=== PATIENT | female | born 1955 | race Caucasian/White ===

== ENCOUNTER 2018-03-17 08:17 | Day surgery (SDC) | payer MEDICARE, MEDICAID ==
[2018-03-16 17:03] VITALS: BMI 34.4
[2018-03-17 09:37] LABS: #Eosinphils 0.3 thou/uL (0.0-0.7); #Lymphocytes 1.6 thou/uL (1.20-3.40); #Neutrophils 9.4 thou/uL (1.40-6.50); %Basophils 0.4 % (0.0-1.0); %Eosinophils 2.5 % (0.0-10.0); %Lymphocytes 13.1 % (21.0-51.0); %Monocytes 8.1 % (0.0-10.0); %Neutrophils 75.9 % (42.0-75.0); Hemoglobin 9.6 g/dL (12.0-16.0); Mean Corpuscular HGB CONC 30.3 g/dL (32.0-36.0); Mean Corpuscular Volume 92.5 fl (81.0-99.0); Mean Platelet Volume 8.4 fL (7.4-10.4); Platelet Count 172 thou/uL (130-400); RBC Distribution Width 14.8 % (11.5-14.5); Red Blood Cell (RBC) Count 3.42 mill/uL (4.20-5.40); White Blood Cell (WBC) Count 12.4 thou/uL (4.8-10.8)
[2018-03-17] MEDS ORDERED: CEFAZOLIN/Water 2 GM/20 ML SYRINGE ONE (09:55)
[2018-03-17 09:58] LABS: Anion Gap 18 mmol/L (10-20); BUN (Urea Nitrogen) 68 mg/dL (9.8-20.1); Calc. Creatinine Clearance 11 mL/min (70-130); Calcium 8.6 mg/dL (7.8-10.44); Carbon Dioxide 29 mmol/L (23-31); Chloride 97 mmol/L (98-107); Estimated GFR-MDRD 5; Glucose 156 mg/dL (80-115); Potassium 5.6 mmol/L (3.5-5.1); Sodium 138 mmol/L (136-145)
--- NOTE | 2018-03-17 11:02 | HP ---
REASON FOR ADMISSION/CHIEF COMPLAINT: Clot in right upper arm AV fistula. HISTORY OF PRESENT ILLNESS: Ms. Mariscal is a 62-year-old woman with end-stage renal failure on cathi lysis, who has been having problems recently with her right upper arm fistula. She underwent a fistu logram and venoplasty yesterday by Dr. Pardeep Nguyen, but he noted a large amount of clot in th e upper vein and was unable to remove this so he requested a surgical thrombectomy. The patient does appear to have a stenosis above this level which he will then venoplasty after the thrombectomy next week. She states that her access has been working well up until just recently and that she was only able to undergo a partial dialysis on Tuesday. She was on dialysis for the full amount of time, b ut the flow was apparently poor so she did not receive a full dialysis. PAST MEDICAL HISTORY: Diabetes type 2 requiring insulin, hypertension, hyperlipidemia, morbid obesit y, chronic renal failure, needing dialysis, chronic lymphedema, hypothyroidism, and depression. PAST SURGICAL HISTORY: Left colon resection, breast biopsy, carpal tunnel, hysterectomy, right upper arm AV fistula and revision and femoral and internal jugular dialysis catheters. MEDICATIONS: Sertraline 100 mg in the morning and 50 mg in the evening, hydralazine 100 mg p.o. b.i. d., carvedilol 25 mg p.o. b.i.d., meclizine 50 mg p.o. q.p.m., vitamin D 1000 units b.i.d., pantopraz ole 40 mg p.o. q.a.m., atorvastatin 40 mg p.o. q.p.m., levothyroxine 5 mcg p.o. q.a.m., loratadine 1 0 mg p.o. q.a.m., topiramate 50 mg p.o. b.i.d., diphenhydramine 25 mg p.o. q.p.m., felodipine ER 10 m g p.o. q.p.m., valsartan 320 mg p.o. q.p.m., Sensipar 60 mg p.o. q.p.m., bupropion 150 mg p.o. b.i.d. , Pro-Renal plus D 1 p.o. q.a.m., Levemir FlexTouch 45 units subcu q.p.m., amoxicillin 875 mg p.o. b.i.d. for bronchitis and benzonatate 200 mg p.o. t.i.d., Renvela 800 mg 3 tablets b.i.d. and a cough suppressant every 4 hours p.r.n., Tylenol p.r.n. FAMILY HISTORY: Diabetes and heart disease. ALLERGIES: She reports an allergy to LISINOPRIL and an intolerance of CODEINE. SOCIAL HISTORY: She does not smoke, drink or use illicit drugs. She is accompanied by her daughter. REVIEW OF SYSTEMS: Ten system review of systems is negative except per HPI and for chronic cough fro m bronchitis which has been ongoing for over a week. She has not had any fevers, chills or dyspnea. She also has right arm swelling which is recent in onset. PHYSICAL EXAMINATION: VITAL SIGNS: Temperature 97, heart rate 82, respirations 20, blood pressure 128/69, O2 sat 94% on ro om air. GENERAL: Reveals a pleasant elderly woman in no acute distress. She is not flushed or toxic in appe arance. She is not jaundiced or icteric. HEENT: Unremarkable. NECK: Supple, without lymphadenopathy or thyroid nodules. HEART: Regular in its rate and rhythm. She does have a systolic murmur which is heard best at the l eft sternal border. RESPIRATORY: She does not have any crackles. Breath sounds are somewhat distant due to body habitus . ABDOMEN: Soft, nontender, nondistended. She has fairly marked rectus diastasis and no palpable william ias or masses. EXTREMITIES: Warm and well perfused. She has some mild edema of bilateral lower extremities. Her r ight arm is swollen and somewhat tender consistent with acute edema. She has a pulsatile quality to her right upper arm fistula, but there is flow through it. She has a fairly large aneurysm, but the skin overlying it is healthy. NEUROLOGIC: No focal deficits. PSYCHIATRIC: Alert, oriented, and appropriate. ASSESSMENT: Nonocclusive thrombus of the right upper arm AV fistula for which surgical thrombectomy has been requested. We will plan on proceeding with this in the operating room under fluoroscopic gu idance. Once we have retrieved as much clot as possible she will return to Dr. Roberto for planne d angioplasty and possible stenting of her central venous stenosis. She does understand that there i s risk of clot breaking off traveling to the lung causing pulmonary embolus, damage to the vein and f ailure to clear the clot is also possible. If the fistula does not look salvageable then a tunneled dialysis catheter will be placed, but I do not anticipate this will be the case. All of her and her daughter's questions were answered and they wish to proceed.
[2018-03-17] MEDS ORDERED: Heparin 1,000 UNITS/ML VIAL ONE ×2 (11:11)
[2018-03-17] MEDS ORDERED: Protamine Sulfate 50 MG/5 ML VIAL ONE (11:44)
[2018-03-17] MEDS ORDERED: Bupivacaine/Epinephrine 0.25% 30 ML VIAL ONE ×2 (11:44→14:11)
[2018-03-17] MEDS ORDERED: Heparin 5,000 UNITS/ML VIAL ONE (11:44)
[2018-03-17] MEDS ORDERED: Ioversol 68 % 50 ML VIAL ONE (11:45)
[2018-03-17] MEDS ORDERED: Lidocaine 2% 10 ML INJ ONE ×2 (11:45→14:11)
[2018-03-17] MEDS ORDERED: Fentanyl 100 MCG/2 ML VIAL ONE (11:53)
[2018-03-17] MEDS ORDERED: Ondansetron HCl/PF 4 MG/2 ML Vial ONE ×2 (13:02→19:44)
[2018-03-17] MEDS ORDERED: Sodium Chloride 0.9% 30 ML ONE (14:11)
[2018-03-17] MEDS ORDERED: Heparin 10,000 UNITS/1 ML VIAL ONE (14:11)
[2018-03-17] MEDS ORDERED: Ondansetron HCl/PF 4 MG/2 ML Vial IVP PRN (14:44)
[2018-03-17] MEDS ORDERED: Promethazine HCl 25 MG/ML VIAL SLOW IVP PRN (14:44)
[2018-03-17] MEDS ORDERED: Promethazine HCl 25 MG/ML VIAL IM PRN (14:44)
[2018-03-17] MEDS ORDERED: traMADol HCl 50 MG TAB PO PRN ×2 (15:27→15:28)
--- NOTE | 2018-03-17 15:52 | RAD ---
PORTABLE CHEST: 03/17/18 HISTORY: Dyspnea. CCU followup. COMPARISON: 06/05/13. FINDINGS/IMPRESSION: Heart is mildly enlarged. There is a dual lumen central line via the left jugular with tip overlying the upper SVC. Mild vascular engorgement. The lungs show no evidence of focal infiltrate and no signi ficant effusion. POS: [facility]
--- NOTE | 2018-03-17 16:46 | EKG ---
Test Reason : PREOP Blood Pressure : / mmHG Vent. Rate : 079 BPM Atrial Rate : 079 BPM P-R Int : 182 ms QRS Dur : 108 ms QT Int : 420 ms P-R-T Axes : 002 009 067 degrees QTc Int : 481 ms Normal sinus rhythm Normal ECG When compared with ECG of 01-JUN-2013 18:10, Nonspecific T wave abnormality no longer evident in Lateral leads Confirmed by DR. Kei MATTHEWS ([id number]) on 03/17/2018 4:46:21 PM Referred By: SHAKIRA Confirmed By:DR. Kei MATTHEWS
[2018-03-17] MEDS ORDERED: PHENYLEPHRINE-NS 100 MCG/ML 10 ML SYRINGE ONE (19:44)
[2018-03-17] MEDS ORDERED: Glycopyrrolate 0.2 MG/ML 5 ML SYRINGE ONE (19:44)
[2018-03-17] MEDS ORDERED: PROPOFOL 200 MG/20 ML VIAL ONE (19:44)
[2018-03-17] MEDS ORDERED: Lidocaine 1% PF 5 ML VIAL ONE (19:44)
[2018-03-17] MEDS ORDERED: ePHEDrine/0.9% NaCl/PF SYRINGE 50 mg/10 ml ONE (19:44)
[2018-03-17 21:01] VITALS: TEMP 98.6
[2018-03-17] MEDS ORDERED: Loratadine 10 MG TAB PO PRN (21:06)
[2018-03-17 21:13] LABS: Anion Gap 16 mmol/L (10-20); BUN (Urea Nitrogen) 15 mg/dL (9.8-20.1); Calc. Creatinine Clearance 33 mL/min (70-130); Carbon Dioxide 29 mmol/L (23-31); Chloride 97 mmol/L (98-107); Estimated GFR-MDRD 17; Glucose 116 mg/dL (80-115); Potassium 3.3 mmol/L (3.5-5.1); Sodium 139 mmol/L (136-145)
[2018-03-17] MEDS ORDERED: Valsartan 80 MG TAB PO SCH (21:15)
[2018-03-17] MEDS ORDERED: hydrALAZINE 25 MG TAB PO SCH (21:15)
[2018-03-17] MEDS ORDERED: Hydrochlorothiazide 25 MG TAB PO SCH (21:15)
[2018-03-17] MEDS ORDERED: Topiramate 25 MG TAB PO SCH (21:15)
[2018-03-17 21:31] VITALS: BP 182/84
[2018-03-18] MEDS ORDERED: Insulin Detemir 100 UNITS/ML 45 UNITS in Pre-Filled Syringe 1 EACH SC SCH (07:30)
--- NOTE | 2018-03-18 07:39 | ULT ---
ULTRASOUND VESSEL MAPPING FOR DIALYSIS ACCESS: Date: 03/17/18 HISTORY: 62-year-old female with ERSD. FINDINGS: Exam was limited with only attention to the LEFT arm. BASILIC VEIN Proximal Arm: 3.4 mm Mid Arm: 2.7 mm Distal Arm: 2.6 mm Antecubital Fossa: 4.1 mm Proximal Forearm: 2.7 mm Mid Forearm: 2.6 mm Distal Forearm: 2.4 mm CEPHALIC VEIN Proximal Arm: 4.1 mm Mid Arm: 2.8 mm Distal Arm: 4.9 mm Antecubital Fossa: 4.7 mm Proximal Forearm: 2.6 mm Mid Forearm: 3.1 mm Distal Forearm: 3.2 mm BRACHIAL ARTERY: 5.1 mm RADIAL ARTERY: 1.7 mm ULNAR ARTERY: 1.8 mm IMPRESSION: Left basilic and cephalic sizes as above. Right upper extremity was not evaluated. POS: [facility]
[2018-03-18] MEDS ORDERED: Sevelamer Carbonate 800 MG TAB PO SCH (08:00)
[2018-03-18] MEDS ORDERED: Liothyronine Sodium 5 MCG TAB PO SCH (09:00)
[2018-03-18] MEDS ORDERED: hydrALAZINE 25 MG TAB PO SCH (09:00)
[2018-03-18] MEDS ORDERED: Meclizine HCl 25 MG TAB PO SCH (09:00)
[2018-03-18] MEDS ORDERED: Prevnar 13-Val Conj/PF 0.5 ML SYRINGE IM ONE (09:00)
[2018-03-18] MEDS ORDERED: Topiramate 25 MG TAB PO SCH (09:00)
[2018-03-18] MEDS ORDERED: Valsartan 80 MG TAB PO SCH (21:00)
[2018-03-18] MEDS ORDERED: Hydrochlorothiazide 25 MG TAB PO SCH (21:00)
--- NOTE | 2018-03-23 17:53 | PDOC.OP ---
Operative Note - Operative Note Operative Note: PROCEDURE: Fistulogram and attempted thrombectomy of clotted right upper arm AV fistula. Placement of left internal jugular tunneled hemodialysis catheter with ultrasound and fluoroscopic guidance. SURGEON: Tony Hilliard M.D. DATE OF PROCEDURE: 03/17/2018 PREOPERATIVE DIAGNOSIS: End-stage renal failure. POSTOPERATIVE DIAGNOSIS: End-stage renal failure. HISTORY: Patient with thrombosed right upper arm AV fistula which was unable to be declotted by her interventional growth media mixer mushroom. A surgical thrombectomy was requested. FINDINGS: Extensive clots within the right upper arm AV fistula unable to be removed with Marcio catheters despite multiple attempts. Right internal jugular vein appears to be sclerosed. Left internal jugular vein is patent and compressible. PROCEDURE: After informed consent was obtained and appropriate preoperative antibiotics were administered, the patient was taken to the Operating Room, placed in the supine position and monitored anesthesia care was administered. The patient had 2 large aneurysmal dilations of her fistula and the upper arm. There is some retrograde flow within the lower arm cephalic vein but no palpable flow within the upper arm. A longitudinal incision was made over the nondilated portion of the fistula just above the antecubital fossa and dissection carried down to the fistula which was dissected free circumferentially. 2 vessel loops were placed superiorly and inferiorly and the inferior vessel loop tightened. A transverse fistulotomy was created and Marcio catheters passed into the upper fistula. Some clot was able to be removed with a Marcio catheter but the Marcio kept coiling within the aneurysmal sac and could not be advanced into the upper part of the fistula despite multiple attempts. Therefore the decision was made to try to declot the fistula from the portion of the fistula above the aneurysmal dilation. A second incision was made overlying the nondilated fistula above the aneurysmal portion of the fistula. This was dissected free circumferentially and vessel loops placed proximally and distally. A transverse venotomy was created and a Marcio catheter passed into the proximal vein. A large amount of clot was able to be removed but the catheter would not pass beyond about 20 cm and there was no backflow. A venogram was obtained and complete obstruction of the vein noted at about the level of insertion of the cephalic vein into the axillary vein. Additional attempts were made to pass the Marcio catheter beyond this level but these were unsuccessful. Both enterotomies were closed with running Prolene sutures and the skin incisions were closed with 30 and 4-0 Monocryl suture and dressed with Dermabond. Attention was then turned to obtaining temporary access with a tunneled hemodialysis catheter. The neck and chest were prepped and draped in a standard sterile fashion and the patient placed in Trendelenburg position. A sterile ultrasound probe was used to examine the right neck but the right IJ vein was sclerotic. Attention was then turned to the left neck where the patent compressible left IJ vein was accessed under direct ultrasound guidance. A wire was threaded through the needle and confirmed by ultrasound to be within the patent compressible vessel with the tip in the vena cava by fluoroscopy. Local anesthesia was infused to the skin and subcutaneous tissues of the left neck and chest. An infraclavicular incision was made and a catheter tunneled from the infraclavicular to the left IJ access site. The left IJ was sequentially dilated over the wire following which a dilator and sheath were placed over the wire and the dilator and wire removed leaving the sheath in place. The catheter was tunneled through the sheath which was then split and removed leaving the catheter in place. This was confirmed by fluoroscopy to be in good position in the superior vena cava with no kinking of the course of the catheter. Both ports easily aspirated dark venous nonpulsatile blood and easily flushed without resistance. Heparin was instilled to the quantity specified on the hub , and the hub was secured to the skin with 3-0 nylon sutures. The skin incision at the neck was closed in two layers with 4-0 Monocryl suture and Dermabond dressings were placed. The skin at the exit site was snugged up around the catheter with 4-0 Monocryl suture and Dermabond was placed there as well. Once the Dermabond was dry, a Biopatch and Tegaderm dressing was placed at the exit site. The patient was taken to Recovery in good condition. Estimated blood loss was minimal. There were no complications. There were no specimens.
== END 2018-03-17 23:48 | disposition home or self-care (01) ==
LOC: SDC 08:17 → 2SW 14:50 → SDC 23:48
PROVIDERS: ATTEND Surgery
PROC: 03CY0ZZ Extirpation of Matter from Upper Artery, Open Approach (ICD-10-PCS; principal; 2018-03-17)
PROC: 05HN33Z Insertion of Infusion Device into Left Internal Jugular Vein, Percutaneous Approach (ICD-10-PCS; 2018-03-17)
PROC: B514ZZA Fluoroscopy of Left Jugular Veins, Guidance (ICD-10-PCS; 2018-03-17)
PROC: B544ZZA Ultrasonography of Left Jugular Veins, Guidance (ICD-10-PCS; 2018-03-17)
DX: T82.818A Embolism due to vascular prosthetic devices, implants and grafts, initial encounter (principal); E11.22 Type 2 diabetes mellitus with diabetic chronic kidney disease; I12.0 Hypertensive chronic kidney disease with stage 5 chronic kidney disease or end stage renal disease; N18.6 End stage renal disease; E78.5 Hyperlipidemia, unspecified; E66.01 Morbid (severe) obesity due to excess calories; I89.0 Lymphedema, not elsewhere classified; E03.9 Hypothyroidism, unspecified; F32.9 Major depressive disorder, single episode, unspecified; Z68.34 Body mass index [BMI] 34.0-34.9, adult; Z99.2 Dependence on renal dialysis; Z79.2 Long term (current) use of antibiotics; Z79.4 Long term (current) use of insulin; Z79.899 Other long term (current) drug therapy; Z88.8 Allergy status to other drugs, medicaments and biological substances; Z88.5 Allergy status to narcotic agent
CPT/HCPCS: 36561; 36831; 71045; 76001; 80048 ×2; 82962; 85025; 93005; C1752; C1769; G0365; 36415; 36416; 90935; 93010; 93970; A4216; G0257; J1644; J2001; J2405; J2704; J2720; J3010; Q9967

== ENCOUNTER 2018-04-04 18:14 | Inpatient (IN) | payer MEDICARE, OTHER, MEDICAID ==
[2018-04-04 18:46] LABS: #Eosinphils 0.3 thou/uL (0.0-0.7); #Lymphocytes 1.5 thou/uL (1.20-3.40); #Monocytes 0.6 thou/uL (0.11-0.59); %Basophils 0.2 % (0.0-1.0); %Eosinophils 3.3 % (0.0-10.0); %Lymphocytes 17.9 % (21.0-51.0); %Monocytes 6.9 % (0.0-10.0); %Neutrophils 71.7 % (42.0-75.0); Hemoglobin 8.2 g/dL (12.0-16.0); Mean Corpuscular HGB CONC 31.7 g/dL (32.0-36.0); Mean Corpuscular Hemoglobin 28.7 pg (27.0-31.0); Mean Corpuscular Volume 90.5 fl (81.0-99.0); Mean Platelet Volume 7.3 fL (7.4-10.4); Platelet Count 237 thou/uL (130-400); RBC Distribution Width 15.2 % (11.5-14.5); Red Blood Cell (RBC) Count 2.85 mill/uL (4.20-5.40); White Blood Cell (WBC) Count 8.4 thou/uL (4.8-10.8)
[2018-04-04 19:10] LABS: ALT (SGPT) Less than 7 U/L (8-55); AST (SGOT) 14 U/L (5-34); Albumin 3.7 g/dL (3.4-4.8); Alkaline Phosphatase 74 U/L (40-150); Anion Gap 14 mmol/L (10-20); BUN (Urea Nitrogen) 23 mg/dL (9.8-20.1); Bilirubin, Total 0.3 mg/dL (0.2-1.2); Calc. Creatinine Clearance 0 mL/min (70-130); Calcium 8.4 mg/dL (7.8-10.44); Carbon Dioxide 33 mmol/L (23-31); Chloride 95 mmol/L (98-107); Estimated GFR-MDRD 11; Glucose 338 mg/dL (80-115); Potassium 4.1 mmol/L (3.5-5.1); Protein, Total 7.7 g/dL (6.0-8.3); Sodium 138 mmol/L (136-145)
[2018-04-04 19:10] LABS: INR-International Normal Ratio 1.3; Prothrombin Time 16.5 SEC (12.0-14.7)
[2018-04-04 19:11] LABS: PTT 37.5 SEC (22.9-36.1)
[2018-04-04 19:12] LABS: D-Dimer Test 3.02 *mcg/mL (0.27-0.43)
--- NOTE | 2018-04-04 20:08 | RAD ---
RIGHT HAND THREE VIEWS: 04/04/2018 HISTORY: Pain to right arm that started one month after having a stent placed in the right upper arm. Lower a rm swelling and discoloration. FINDINGS: No fracture or dislocation seen involving the right hand. No other osseous abnormality is appreciat ed. Vascular calcifications are seen at the level of the wrist. IMPRESSION: No acute osseous abnormality, right hand. POS: [facility]
[2018-04-04] MEDS ORDERED: Acetaminophen 325 MG TAB ONE (20:14)
[2018-04-04] MEDS ORDERED: Piperacillin/Tazobactam 3.375 GM VIAL ONE (20:24)
[2018-04-04] MEDS ORDERED: Acetaminophen 500 MG TAB ONE ×2 (20:24→20:55)
[2018-04-04] MEDS ORDERED: Ondansetron ODT 4 MG TAB ONE ×2 (20:24→21:58)
[2018-04-04] MEDS ORDERED: Morphine 4 MG/ML VIAL ONE (20:25)
--- NOTE | 2018-04-04 20:56 | RAD ---
PORTABLE CHEST: 04/04/2018 PROVIDED CLINICAL HISTORY: Cough. COMPARISON: 03/17/2018 FINDINGS: The cardiac silhouette remains enlarged. Vascular stent material overlies the right lung apex. A le ft subclavian dialysis catheter is again seen. Patchy air space disease at the right lower lung zone may reflect subsegmental atelectasis or pneumonia. The lungs appear otherwise clear. No pleural fl uid or pneumothorax apparent. IMPRESSION: Right lower lung zone air space disease, which may reflect pneumonia. Followup recommended. POS: [facility]
[2018-04-04 21:29] LABS: Bilirubin Negative (Negative); Blood, Urine Negative (Negative); Clarity CLEAR (Clear); Glucose, Urine (Dipstick) Negative (Negative); Leukocyte Negative (Negative); Nitrite Negative (Negative); Protein, Urine (Dipstick) 100 mg/dL (Neg-Trace); Specific Gravity, Urine 1.012 (1.002-1.036); Urobilinogen 0.2 mg/dL (0.2-1.0)
[2018-04-04 21:31] LABS: Bacteria/HPF None Seen HPF (None Seen); Hyaline Casts/LPF 0-3 HYALINE CAST LPF (0-3 Hyaline); Pathc Cast-AUWi Flag 0.29 (0-2.49); RBC/HPF None Seen HPF (0-3); Squamous Epithelial 0-3 HPF (0-3); WBC/HPF 0-3 HPF (0-3)
[2018-04-04] MEDS ORDERED: Insulin Regular 300 UNITS/3 ML VIAL ONE (22:54)
[2018-04-04] MEDS ORDERED: Promethazine HCl 25 MG/ML VIAL ONE (22:56)
[2018-04-04] MEDS ORDERED: Vancomycin HCl 1.5 GM in Sodium Chloride 0.9% 250 ML 300 ML IVPB SCH (23:15)
--- NOTE | 2018-04-04 23:16 | ULT ---
RIGHT UPPER EXTREMITY VENOUS DOPPLER: 04/04/2018 PROVIDED CLINICAL HISTORY: Swelling and pain. TECHNIQUE: Calero-scale and color Doppler sonography was performed of the right internal jugular, subclavian, axil nisha, basilic, brachial, cephalic, radial, and ulnar veins. FINDINGS: There is an enlarged appearance to the right cephalic vein in the upper arm due to a known radiocepha lic dialysis fistula. The cephalic vein is occluded at the level of the elbow. The remainder of the interrogated vessels of the right upper extremity demonstrate a normal sonographic appearance. Flow is documented within the radial artery at the anastomosis. IMPRESSION: 1. Occlusion of the cephalic vein at the level of the elbow. 2. Otherwise unremarkable right upper extremity venous Doppler. POS: [facility]
[2018-04-05 04:08] VITALS: BMI 34.4
[2018-04-05] MEDS ORDERED: Bisacodyl 10 MG SUPP PR PRN (05:22)
[2018-04-05] MEDS ORDERED: Calcium Carbonate 500 MG ChewTAB PO PRN (05:22)
[2018-04-05] MEDS ORDERED: Dextrose 50% Abboject 50 ML SYRINGE SLOW IVP PRN (05:22)
[2018-04-05] MEDS ORDERED: Senokot 8.6 MG TAB PO PRN (05:22)
[2018-04-05] MEDS ORDERED: Ondansetron HCl/PF 4 MG/2 ML Vial IVP PRN ×2 (05:22→15:40)
[2018-04-05] MEDS ORDERED: Dextrose 5% in Water 1,000 ML IV PRN (05:22)
[2018-04-05] MEDS ORDERED: VANCOMYCIN/ RENALLY ADJUST ANTIBIOTICS IVPB PRN (05:23)
[2018-04-05] MEDS ORDERED: Promethazine 25 MG TAB PO PRN (05:28)
[2018-04-05] MEDS ORDERED: Vancomycin HCl 1 GM in Premix Bag 1 BAG IVPB SCH ×2 (05:30→10:00)
--- NOTE | 2018-04-05 05:42 | HP ---
DATE OF ADMISSION: 04/04/2018 The patient was seen and examined on 04/04/2018 CHIEF COMPLAINT: Right arm pain. HISTORY OF PRESENT ILLNESS: The patient is a 62-year-old female with end-stage renal disease on hemo dialysis, presented to the emergency room with worsening pain and swelling over the right arm fistula . Over the last one week, her pain got significantly worse along with erythema over the right arm. She underwent fistulogram with attempted thrombectomy [address] Hilliard. She denies chest p ain, shortness of breath, palpitations. In the emergency room, her initial vital signs showed temperature 100.7, respirations 18, pulse rate of 98 with a blood pressure of 178/75. Chest x-ray showed questionable pneumonia. Right upper extre mity Doppler showed occlusion of the cephalic vein at the level of the elbow. X-ray of the hand was negative for acute findings. She received vancomycin, Zosyn, morphine, Zofran and Phenergan in the e mergency room. The pain was 10/10 in the emergency room. Radial pulses were palpable. PAST MEDICAL HISTORY: 1. End-stage renal disease, on hemodialysis Tuesday, Tuesday, Tuesday. 2. Diabetes mellitus, type 2. 3. Hypertension. 4. Hyperlipidemia. 5. Obesity with a BMI of 34.5. 6. Chronic lymphedema. 7. Hypothyroidism. 8. Depression. PAST SURGICAL HISTORY: 1. Dialysis access. 2. Left colon resection. 3. Breast biopsy. 4. Carpal tunnel surgery. 5. Hysterectomy. 6. Dialysis catheter placement. FAMILY HISTORY: Positive for diabetes and heart disease. ALLERGIES: The patient is allergic to LISINOPRIL. She is unable to tolerate CODEINE. SOCIAL HISTORY: Currently lives at home with her family. Daughter is at the bedside. She is FULL C ODE. MEDICATIONS: Family to bring accurate home medication list. REVIEW OF SYSTEMS: The following complete review of systems was negative, unless otherwise mentioned in the HPI or below: Constitutional: Weight loss or gain, ability to conduct usual activities. Sk in: Rash, itching. Eyes: Double vision, pain. ENT/Mouth: Nose bleeding, neck stiffness, pain, te nderness. Cardiovascular: Palpitations, dyspnea on exertion, orthopnea. Respiratory: Shortness of breath, wheezing, cough, hemoptysis, fever or night sweats. Gastrointestinal: Poor appetite, abdom inal pain, heartburn, nausea, vomiting, constipation, or diarrhea. Genitourinary: Urgency, frequenc y, dysuria, nocturia. Musculoskeletal: Pain, swelling. Neurologic/Psychiatric: Anxiety, depressio n. Allergy/Immunologic: Skin rash, bleeding tendency. PHYSICAL EXAMINATION: VITAL SIGNS: As discussed above. GENERAL: A 62-year-old female, in mild distress due to right arm pain. She also developed nausea af ter morphine in the emergency room. HEENT: Head atraumatic, normocephalic. Sclerae are anicteric. Moist mucous membranes. No oral les ion. NECK: Supple, no JVD, no carotid bruit. LUNGS: Clear to auscultation bilaterally. No wheezing, rales or rhonchi. HEART: S1, S2 present. Regular rate and rhythm. No murmur, rubs or gallops. ABDOMEN: Soft, nontender, bowel sounds present. EXTREMITIES: There is 2+ edema in bilateral lower extremities. NEUROLOGIC: Grossly nonfocal, moves all four extremities. PSYCHIATRIC: Alert, awake, oriented x3. SKIN: There is swelling, erythema and tenderness over the right arm. LABORATORY AND X-RAY FINDINGS: CBC showed WBC of 8.4 with hemoglobin 8.2. CRP was 2.92. Urinalysis was negative for wbc, bacteria. Chest x-ray by my review showed questionable infiltrate. IMPRESSION: 1. Sepsis secondary to right upper extremity cellulitis. 2. Abnormal chest x-ray. Pneumonia appears to be less likely. 3. 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 4. Diabetes mellitus, type 2, uncontrolled. 5. Depression. 6. Hypertension. 7. Hyperlipidemia. 8. Hypothyroidism. 9. Obesity with a BMI of 34.5. 10. End-stage renal disease on hemodialysis. 11. Secondary hyperparathyroidism. PLAN: The patient will be monitored on the medical floor. We will continue empiric antibiotics for cellulitis. We will consult Nephrology for maintenance hemodialysis. We will consult Dr. Babak aquino malfunctioning right arm fistula. We will repeat labs in a.m. Continue selected home medications. Blood cultures have been sent. Plan of care was discussed with the patient in detail. She stated understanding.
[2018-04-05] MEDS ORDERED: Eucerin (Mineral Oil/Petrolatum,White) 30 gm Jar TOP PRN (06:57)
[2018-04-05] MEDS ORDERED: Benzonatate 100 MG CAP PO PRN (06:57)
[2018-04-05] MEDS ORDERED: Loperamide HCl 2 MG CAP PO PRN (06:57)
[2018-04-05] MEDS ORDERED: Artificial Tears 18 DROP/0.9 ML EA EYE PRN (06:57)
[2018-04-05] MEDS ORDERED: Chloraseptic Spray 180 ml Bottle PO PRN (06:57)
[2018-04-05] MEDS ORDERED: Diabetic Tussin 200 MG/10 ML UDCUP PO PRN (06:57)
[2018-04-05] MEDS ORDERED: Mag-Al 1200 mg/1200 mg/30 ML UDCUP PO PRN (06:57)
[2018-04-05] MEDS ORDERED: Loratadine 10 MG TAB PO PRN (06:57)
[2018-04-05] MEDS ORDERED: Temazepam 15 MG CAP PO PRN (06:57)
[2018-04-05] MEDS ORDERED: hydrALAZINE 20 MG/ML VIAL SLOW IVP PRN (06:57)
[2018-04-05] MEDS ORDERED: diphenhydrAMINE 25 MG CAP PO PRN (06:57)
[2018-04-05] MEDS ORDERED: Labetalol HCl 100 MG/20 ML VIAL SLOW IVP PRN (06:57)
[2018-04-05] MEDS ORDERED: Sodium Chloride 0.65% Nasal 44 ML BOT EA NARE PRN (06:57)
[2018-04-05] MEDS ORDERED: Milk Of Magnesia 30 ML UDCUP PO PRN (06:57)
[2018-04-05] MEDS ORDERED: Meclizine HCl 25 MG TAB PO PRN (06:58)
[2018-04-05] MEDS: Insulin Regular 300 UNITS/3 ML VIAL SC PRN ×2 (07:12→17:28)
[2018-04-05] MEDS: Ondansetron ODT 4 MG TAB PO PRN (07:13)
[2018-04-05] MEDS: Acetaminophen 325 MG TAB PO PRN ×2 (07:13→17:12)
[2018-04-05] MEDS ORDERED: CEFAZOLIN/Water 2 GM/20 ML SYRINGE SLOW IVP SCH (08:45)
[2018-04-05] MEDS ORDERED: Famotidine/PF 20 mg/2ml Vial SLOW IVP SCH (09:00)
[2018-04-05] MEDS: hydrALAZINE 25 MG TAB PO SCH (09:24)
[2018-04-05] MEDS: Bupropion 150 MG SR TAB PO SCH (09:24)
[2018-04-05] MEDS: Topiramate 25 MG TAB PO SCH (09:24)
[2018-04-05] MEDS: Sevelamer Carbonate 800 MG TAB PO SCH (09:24)
[2018-04-05] MEDS: Carvedilol 25 MG TAB PO SCH (09:24)
[2018-04-05] MEDS: Liothyronine Sodium 5 MCG TAB PO SCH (09:25)
[2018-04-05] MEDS ORDERED: Vancomycin HCl 750 MG in Sodium Chloride 0.9% 250 ML 250 ML IVPB SCH (10:00)
[2018-04-05] MEDS ORDERED: Vancomycin HCl 500 MG in Sodium Chloride 0.9% 100 ML IVPB SCH (10:00)
[2018-04-05] MEDS ORDERED: HOLD VANCOMYCIN FOR LEVEL >20 FS SCH (10:00)
[2018-04-05] MEDS ORDERED: Vancomycin HCl 1.25 GM in Sodium Chloride 0.9% 250 ML 250 ML IVPB SCH (10:00)
--- NOTE | 2018-04-05 10:16 | ULT ---
SONOGRAM RIGHT UPPER QUADRANT: HISTORY: Right upper quadrant pain. FINDINGS: Gallbladder is distended up to 10.9 cm. No stones are directly visualized. No pericholecystic fluid or wall thickening. Liver is unremarkable without focal mass or intrahepatic biliary dilatation. No free fluid. There i s thinning of the cortex of the right kidney with a small cortical cyst. IMPRESSION: Gallbladder distention can be a sign of gallbladder outlet obstruction, although no other sonographic findings of acute cholecystitis are apparent. Clinical correlation regarding other signs and sympto ms of acute cholecystitis is required. POS: [facility]
--- NOTE | 2018-04-05 10:25 | PDOC.PN ---
- Subjective Encounter Start Date: 04/05/18 Encounter Start Time: 10:45 -: old records requested/rev Patient seen and examined for AV fistula malfunction. No new complaints. No overnight events - Objective Resuscitation Status: Resuscitation Status FULL:Full Resuscitation MAR Reviewed: Yes Vital Signs & Weight: Vital Signs (12 hours) Temp Pulse Resp BP BP Pulse Ox 04/05/18 09:24 82 04/05/18 07:54 98.3 F 82 20 04/05/18 07:47 98.3 F 82 20 139/64 91 L 04/05/18 04:40 98.4 F 80 16 165/70 H 91 L 04/05/18 00:15 98 F 80 16 207/96 H 97 Weight Admit Weight 219 lb 15.988 oz Weight 219 lb 15.988 oz Result Diagrams: 04/04/18 18:36 04/04/18 18:31 Additional Labs: Accuchecks 04/05/18 06:33 POC Glucose 271 H Radiology Reviewed by me: Yes (US abdomen, US, Chest xray, hand xray) Phys Exam - Physical Examination Constitutional: NAD HEENT: PERRLA, moist MMs, sclera anicteric Neck: no JVD, supple Respiratory: no wheezing, no rales, no rhonchi Cardiovascular: RRR, no significant murmur, no rub Gastrointestinal: soft, non-tender, no distention, positive bowel sounds Musculoskeletal: no edema, pulses present right UE AV fistula does not have thrill, right hand discolartion Neurological: non-focal, normal sensation, moves all 4 limbs Lymphatic: no nodes Psychiatric: normal affect, A&O x 3 Skin: no rash, normal turgor Dx/Plan (1) Cellulitis of right upper extremity Code(s): L03.113 - CELLULITIS OF RIGHT UPPER LIMB Status: Acute (2) Cephalic vein thrombosis Code(s): I82.619 - ACUTE EMBOLISM AND THROMBOSIS OF SUPERFIC VN UNSP UP EXTREM Status: Acute (3) Dialysis AV fistula malfunction Code(s): T82.590A - [facility] COMPL OF SURGICALLY CREATED ARTERIOVENOUS FISTULA, INIT Status: Acute (4) Sepsis Code(s): A41.9 - SEPSIS, UNSPECIFIED ORGANISM Status: Acute (5) Anemia of renal disease Code(s): D63.1 - ANEMIA IN CHRONIC KIDNEY DISEASE Status: Chronic (6) Anxiety and depression Code(s): F41.9 - ANXIETY DISORDER, UNSPECIFIED; F32.9 - MAJOR DEPRESSIVE DISORDER, SINGLE EPISODE, UNSPECIFIED Status: Chronic (7) Diabetes type 2, controlled Code(s): E11.9 - TYPE 2 DIABETES MELLITUS WITHOUT COMPLICATIONS Status: Chronic (8) Dyslipidemia Code(s): E78.5 - HYPERLIPIDEMIA, UNSPECIFIED Status: Chronic (9) ESRD on hemodialysis Code(s): N18.6 - END STAGE RENAL DISEASE; Z99.2 - DEPENDENCE ON RENAL DIALYSIS Status: Chronic (10) Hypertension Code(s): I10 - ESSENTIAL (PRIMARY) HYPERTENSION Status: Chronic (11) Hypothyroidism Code(s): E03.9 - HYPOTHYROIDISM, UNSPECIFIED Status: Chronic (12) Obesity (BMI 30-39.9) Code(s): E66.9 - OBESITY, UNSPECIFIED Status: Chronic (13) Secondary hyperparathyroidism of renal origin Code(s): N25.81 - SECONDARY HYPERPARATHYROIDISM OF RENAL ORIGIN Status: Chronic (14) Right lower lobe pneumonia Code(s): J18.1 - LOBAR PNEUMONIA, UNSPECIFIED ORGANISM Status: Suspected - Plan cont current plan of care, continue antibiotics * continue empiric antibiotics as ordered below * medication reviewed as below * symptomatic treatment * surgeon consulted for AV fistula malfunction * US abdomen noted * will repeat labs, CBC, CM, CRP and hepatitis profile. * HD as per nephrology * Surgeon planning o repair AV fistula today * discussed plan with daughter bedside Review of Systems - Review of Systems Constitutional: negative: fever, chills, sweats, weakness, malaise, other Eyes: negative: Pain, Vision Change, Conjunctivae Inflammation, Eyelid Inflammation, Redness, Other ENT: negative: Ear Pain, Ear Discharge, Nose Pain, Nose Discharge, Nose Congestion, Mouth Pain, Mouth Swelling, Throat Pain, Throat Swelling, Other Respiratory: negative: Cough, Dry, Shortness of Breath, Hemoptysis, SOB with Excertion, Pleuritic Pain, Sputum, Wheezing Cardiovascular: negative: chest pain, palpitations, orthopnea, paroxysmal nocturnal dyspnea, edema, light headedness, other Gastrointestinal: negative: Nausea, Vomiting, Abdominal Pain, Diarrhea, Constipation, Melena, Hematochezia, Other Genitourinary: negative: Dysuria, Frequency, Incontinence, Hematuria, Retention , Other Musculoskeletal: Hand Pain. negative: Neck Pain, Shoulder Pain, Arm Pain, Back Pain, Leg Pain, Foot Pain, Other - Medications/Allergies Allergies/Adverse Reactions: Allergies Allergy/AdvReac Type Severity Reaction Status Date / Time codeine Allergy Verified 04/05/18 01:16 hydrocodone Allergy Verified 04/05/18 01:16 lisinopril Allergy Verified 03/16/18 17:03 Medications: Current Medications Acetaminophen (Tylenol) 650 mg PO Q4H PRN PRN Reason: Headache/Fever or Pain Last Admin: 04/05/18 07:13 Dose: 650 mg Al Hydroxide/Mg Hydroxide (Maalox) 15 ml PO Q4H PRN PRN Reason: Heartburn or Indigestion Albuterol/Ipratropium (Duoneb) 3 ml NEB [id number] PRN PRN Reason: SOB &/or Wheezing Artificial Tears (Tears Naturale) 0 drop EA EYE PRN PRN PRN Reason: Dry Eyes Atorvastatin Calcium (Lipitor) 40 mg PO HS MAXIMILIANO Benzonatate (Tessalon) 100 mg PO Q4H PRN PRN Reason: Cough Bisacodyl (Dulcolax) 10 mg CA Q24H PRN PRN Reason: Constipation Bupropion HCl (Wellbutrin Sr) 150 mg PO BID [facility] Last Admin: 04/05/18 09:24 Dose: 150 mg Calcium Carbonate (Tums) 1,000 mg PO Q4H PRN PRN Reason: Heartburn or Indigestion Carvedilol (Coreg) 25 mg PO BID [facility] Last Admin: 04/05/18 09:24 Dose: 25 mg Cefazolin Sodium (Ancef) 2 gm SLOW IVP WILLCALL [facility] Cholecalciferol (Vitamin D3) 1,000 units PO BID [facility] Last Admin: 04/05/18 09:24 Dose: 1,000 units Cinacalcet (Sensipar) 60 mg PO QPM [facility] Dextrose/Water (Dextrose 50%) 25 gm SLOW IVP PRN PRN PRN Reason: Hypoglycemia Diphenhydramine HCl (Benadryl) 25 mg PO Q8H PRN PRN Reason: Itching Epoetin Young (Procrit) 10,000 units SC Q7D [facility] Felodipine (Plendil) 10 mg PO QPM [facility] Glucagon (Glucagon) 1 mg IM PRN PRN PRN Reason: Hypoglycemia Guaifenesin (Robitussin Sf) 200 mg PO Q4H PRN PRN Reason: Cough Hydralazine HCl (Apresoline) 100 mg PO BID [facility] Last Admin: 04/05/18 09:24 Dose: 100 mg Hydralazine HCl (Apresoline) 10 mg SLOW IVP Q4H PRN PRN Reason: Systolic BP > 180 Dextrose/Water (D5w) 1,000 mls @ 0 mls/hr IV .Q0M PRN; As Directed PRN Reason: Hypoglycemia Insulin Glargine 20 units/ (Miscellaneous Medication) 0.2 mls @ 0 mls/hr SC QPM [facility] Vancomycin HCl 1.25 gm/ Sodium (Chloride) 250 mls @ 166.667 mls/hr IVPB WILLCALL [facility] Vancomycin HCl 1 gm/ Device 200 mls @ 200 mls/hr IVPB WILLCALL [facility] Vancomycin HCl 750 mg/ Sodium (Chloride) 250 mls @ 250 mls[facility] Vancomycin HCl 500 mg/ Sodium (Chloride) 100 mls @ 100 mls/hr IVPB [facility]CALL [facility] Insulin Human Regular (Humulin R) 0 units SC .MODERATE SLIDING SC PRN PRN Reason: Moderate Correctional Scale Last Admin: 04/05/18 07:12 Dose: 6 unit Insulin Human Regular (Humulin R) 0 units SC .BEDTIME SLIDING SC PRN PRN Reason: Bedtime Correctional Scale Labetalol HCl (Normodyne) 20 mg SLOW IVP Q4H PRN PRN Reason: Systolic BP > 180 Liothyronine Sodium (Cytomel) 5 mcg PO DAILY [facility] Last Admin: 04/05/18 09:25 Dose: 5 mcg Loperamide HCl (Imodium) 2 mg PO PRN PRN PRN Reason: Diarrhea/Loose Stools Loratadine (Claritin) 10 mg PO DAILYPRN PRN PRN Reason: Sinus Symptoms Magnesium Hydroxide (Milk Of Magnesium) 30 ml PO DAILYPRN PRN PRN Reason: Constipation Meclizine HCl (Antivert) 25 mg PO Q8H PRN PRN Reason: Dizziness Mineral Oil/White Petrolatum (Eucerin Cream) 0 gm TOP BIDPRN PRN PRN Reason: Dry Skin Miscellaneous Medication (Pharmacy To Dose) 1 each IVPB PRN PRN PRN Reason: Pharmacy to dose Hold Vancomycin For (Level >20) 0 each FS .AT DIALYSIS [facility] Ondansetron HCl (Zofran Odt) 4 mg PO Q6H PRN PRN Reason: Nausea/Vomiting Last Admin: 04/05/18 07:13 Dose: 4 mg Ondansetron HCl (Zofran) 4 mg IVP Q6H PRN PRN Reason: Nausea/Vomiting Pantoprazole Sodium (Protonix) 40 mg PO DAILY [facility] Last Admin: 04/05/18 09:24 Dose: 40 mg Phenol (Chloraseptic [place] 180 Ml Bot) 0 ml PO PRN PRN PRN Reason: Sore Throat Promethazine HCl (Phenergan) 25 mg PO BID PRN PRN Reason: Nausea Senna (Senokot) 2 tab PO HSPRN PRN PRN Reason: Constipation Sertraline HCl (Zoloft) 50 mg PO QPM [facility] Sertraline HCl (Zoloft) 100 mg PO QAM [facility] Last Admin: 04/05/18 09:23 Dose: 100 mg Sevelamer Carbonate (Renvela) 2,400 mg PO BID [facility] Last Admin: 04/05/18 09:24 Dose: 2,400 mg Sodium Chloride (Flush - Normal Saline) 10 ml IVF Q12HR [facility] Last Admin: 04/05/18 09:29 Dose: 10 ml Sodium Chloride (Flush - Normal Saline) 10 ml IVF PRN PRN PRN Reason: Saline Flush Sodium Chloride ([place] Nasal [place] 0.65%) 0 ml EA NARE QIDPRN PRN PRN Reason: Nasal Congestion Temazepam (Restoril) 15 mg PO HSPRN PRN PRN Reason: Insomnia Topiramate (Topamax) 50 mg PO BID [facility] Last Admin: 04/05/18 09:24 Dose: 50 mg Valsartan (Diovan) 320 mg PO HS [facility]
[2018-04-05] MEDS ORDERED: Epoetin (ESRD) 10,000 UNITS/ML VIAL SC SCH (10:30)
[2018-04-05] MEDS ORDERED: PROPOFOL 200 MG/20 ML VIAL ONE (12:00)
[2018-04-05] MEDS ORDERED: Lidocaine 1% PF 5 ML VIAL ONE (12:00)
[2018-04-05] MEDS ORDERED: Metoclopramide HCl 10 MG/2 ML VIAL ONE (12:00)
[2018-04-05] MEDS ORDERED: Ondansetron HCl/PF 4 MG/2 ML Vial ONE ×2 (12:00→12:53)
[2018-04-05] MEDS ORDERED: Fentanyl 100 MCG/2 ML VIAL ONE (12:53)
[2018-04-05] MEDS ORDERED: Ioversol 68 % 50 ML VIAL ONE (13:03)
[2018-04-05] MEDS ORDERED: Protamine Sulfate 250 MG/25 ML VIAL ONE (13:03)
[2018-04-05] MEDS ORDERED: Bupivacaine/Epinephrine 0.25% 30 ML VIAL ONE (13:03)
[2018-04-05] MEDS ORDERED: Heparin 5,000 UNITS/ML VIAL ONE (13:03)
[2018-04-05] MEDS ORDERED: CEFAZOLIN/Water 2 GM/20 ML SYRINGE ONE (13:54)
--- NOTE | 2018-04-05 14:35 | CON ---
DATE OF CONSULTATION: 04/05/2018 REASON FOR CONSULTATION: Right arm swelling and pain. HISTORY: Ms. Mariscal is a 62-year-old woman who is known to me from previous admission. She had a right upper arm AV fistula which had thrombosed. She had retrograde flow through the forearm cephal ic. The fistula was unable to be de-thrombosed even in the operating room due to extensive clotting and inability to pass the wire beyond the proximal cephalic vein. The patient was advised to follow up either with me or with her vascular surgeon in [place] to either have the fistula ligated or to att empt a declotting in [place]. The patient did not follow up with me and has decided against going [facility] to [place]. She came into the hospital because she was feeling very sick and had a low grade fever. She was noted to have redness and swelling of her right arm and was admitted for cellulitis. The p atient states that she also had right upper quadrant abdominal pain, nausea, and vomiting when she ca ky into the hospital. She states that since receiving pain medications and antibiotics. She is feel ing much better. PAST MEDICAL HISTORY: Diabetes; hypertension; end-stage renal failure on dialysis Tuesday, Tuesday, and Tuesday; hyperlipidemia; obesity; hypothyroidism; depression; and chronic lymphedema. PAST SURGICAL HISTORY: Right arm AV fistula and attempted declotting, left colon resection, breast b iopsy, carpal tunnel surgery, hysterectomy, and dialysis catheter placement. ALLERGIES: She has a family history of diabetes and heart disease. ALLERGIES: She reports an allergy to LISINOPRIL and adverse drug reactions to CODEINE and HYDROCODON E. REVIEW OF SYSTEMS: Ten system review of system is negative except per history of present illness. S he states that the pain in her hand is much better since coming to the hospital. She states that the discoloration in her finger has been ongoing for the past 2 weeks or so. SOCIAL HISTORY: She does not smoke, drink or use illicit drugs. OUTPATIENT MEDICATIONS: Sertraline 100 mg in the morning and 50 mg in the evening, hydralazine 100 m g p.o. b.i.d., carvedilol 25 mg p.o. b.i.d., meclizine 50 mg p.o. q.p.m., vitamin D3 of 1000 units p. o. b.i.d., pantoprazole 50 mg p.o. q.a.m., atorvastatin 40 mg p.o. q.p.m., liothyronine 5 mcg p.o. q. a.m., loratadine 10 mg p.o. q.a.m., topiramate 50 mg p.o. b.i.d., diphenhydramine 25 mg p.o. q.p.m., felodipine ER 10 mg p.o. q.p.m., valsartan 320 mg p.o. q.p.m., Sensipar 60 mg p.o. q.p.m., bupropion 150 mg p.o. b.i.d., ProRenal plus D 1 tab p.o. q.a.m., Levemir 45 units q.p.m., amoxicillin 875 mg p. o. b.i.d., benzonatate 200 mg p.o. t.i.d., Renvela 800 mg 3 tablets in the morning, 3 tablets in the evening. Cough syrup and Tylenol as needed. INPATIENT MEDICATIONS: Include atorvastatin 40 mg p.o. at bedtime, bupropion 150 mg p.o. b.i.d., car vedilol 25 mg p.o. b.i.d., vitamin D3 of 1000 units p.o. b.i.d., Sensipar 60 mg p.o. q.p.m., Epogen 1 0,000 units weekly, felodipine 10 mg p.o. q.p.m., sliding scale insulin, hydralazine 100 mg p.o. b.i. d., Glargine insulin 20 units p.o. q.p.m., liothyronine 5 mcg p.o. daily, sliding scale, vancomycin, pantoprazole 40 mg p.o. daily, sertraline 100 mg p.o. q.a.m. and 50 mg p.o. q.p.m., Renvela 2400 mg p .o. b.i.d., topiramate 50 mg p.o. b.i.d., valsartan 320 mg p.o. at bedtime, and multiple PRNs. LABORATORY DATA: White count is normal at 8.4, hematocrit is 25.8, platelets 237. D-dimer is slight ly elevated at 3.02, PTT is 37. INR 1.3. Blood sugars have ranged from 169-325. BUN and creatinine are 23 and 4.09. Bicarbonate is 33 and potassium is 41. LFTs are normal. C-reactive protein is mi ldly elevated at 2.92. Urine is positive for protein. PHYSICAL EXAMINATION: VITAL SIGNS: Patient has been afebrile since her admission. Heart rate 76, respirations 18, blood p ressure 146/68, saturating 91% on room air. GENERAL: Reveals a pleasant woman in no acute distress, who is lying in bed with her right arm eleva paresh. Her BMI is 34.5. HEENT: Unremarkable. NECK: Supple, without lymphadenopathy or thyroid nodules. She does not have any scleral icterus or visible jaundice. HEART: Regular in its rate and rhythm without murmurs, rubs or gallops. LUNGS: Clear to auscultation bilaterally. ABDOMEN: Soft, nontender and nondistended except for some very mild tenderness in the right upper qu adrant with deep palpation. She thinks that this is from throwing up so much yesterday. No palpable masses. Negative Ron sign. EXTREMITIES: Warm. Her left arm is normal in appearance. She has palpable cephalic and antecubital veins and no swelling. Her right arm is moderately swollen more in the hand than in the forearm or upper arm. Her fingers are discolored with a purplish tinge and some blistering of the skin consiste nt with venous congestion and severe edema. She has normal pulses. She has retrograde flow through her forearm cephalic vein and no palpable or audible flow through her upper arm cephalic vein which i s thrombosed. 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 Her previous incisions ar e well healed. There is no expressible drainage or localized erythema. NEUROLOGIC: No focal deficits. PSYCHIATRIC: Alert, oriented, and appropriate. ASSESSMENT: Hyperemia swelling, pain, and discoloration of the right hand which is most likely due t o venous hypertension due to a patent fistula with retrograde flow down the cephalic vein and an adeq uate drainage through the other venous system. She has decided not to go to [place] to try to reestab mane flow through her fistula, so I have recommended ligating the perforating vein which feeds the ce phalic system from the artery. This will likely cause thrombosis of the cephalic vein, but should st ill lessen the venous hypertension in her hands and allow the swelling and pain to improve. She may still have some venous hypertension due to clotting of the outflow, but this should reduce the inflow into the hand through the fistulous connection. I do not believe that she has cellulitis or septic thrombophlebitis of the right arm and we will plan to just observe after ligation of the fistula to s how she recovers. She did have low grade fevers on admission, although no white count or left magdiel ft and blood cultures were sent from her dialysis catheter. However, I do not believe that line seps is is very likely and we will just await microbiology studies. The recommended procedure was discuss ed in detail with the patient who wishes to proceed. I believe that this will give her quite a bit o f symptomatic relief of the pain and swelling in her hand. Once she has recovered better function of her right hand, we will need to investigate the potential of creating a fistula in her left arm. On previous vein mapping, she did appear to have adequate cephalic vein in the upper and lower arm for a primary fistula. However, since she is currently unable to use her right hand very well, I would l sugey to wait until this has improved before proceeding with another fistula. All the patient's questi ons were answered. She has been added onto the OR schedule for today. I also ordered a gallbladder ultrasound due to her history of right upper quadrant abdominal pain and vomiting at the time of her admission, but she has no history of fatty food intolerance or previous similar episodes.
--- NOTE | 2018-04-05 14:35 | CON ---
DATE OF CONSULTATION: 04/05/2018 HISTORY OF PRESENT ILLNESS: Ms. Mariscal is a 62-year-old white female with ESRD, currently on [facility] emergency department hemodialysis and admitted for right hand pain. Her right upper extremity was noted to be swo llen with some mild cyanosis of the right hand. However, on exam of her right hand, she had a good r adial pulse. She has been evaluated previously at [facility] [place] as well as [place] [facility] [place]. She has significant thrombosis on her AV fistula. The feeling by the original [facility] is that she may need ligation of that access. We are now being consulted for maintenance hemodialysis. REVIEW OF SYSTEMS: Occasional nausea and vomiting. No diarrhea, no constipation. Positive for low grade fever. No hematochezia, no melena, no abdominal pain, no syncopal episode, no chest pain or sh ortness of breath, no headache, no sore throat, no joint pains. No new rash. Appetite and energy le everardo is decreased. MEDICATIONS: The patient is currently on Lipitor 40 mg at bedtime, Tessalon Perles 100 mg p.o. q.4 h ours, Wellbutrin 150 mg p.o. b.i.d., calcium carbonate 1000 mg q.4 hours, Coreg 25 mg p.o. b.i.d., An cef 2 grams x1 dose, Sensipar 60 mg at bedtime, felodipine 10 mg tab at bedtime, hydralazine 100 mg p .o. b.i.d., Humulin R sliding scale, labetalol as needed, Cytomel 5 mg daily, Antivert 25 mg p.o. b.i .d., status post vancomycin. Protonix 40 mg tab daily, sertraline 100 mg q.a.m. and 50 mg q.p.m., Renvela 800 mg 4 tabs t.i.d. wit h meals, Topamax 50 mg p.o. b.i.d., Restoril 50 mg at bedtime p.r.n., Diovan 320 mg once a day. PAST MEDICAL HISTORY: Includes the followin. ESRD from presumed diabetic nephropathy. 2. Type 2 diabetes mellitus. 3. Hypertension. 4. Migraine. 5. Hypothyroidism. 6. Depression. 7. Morbid obesity. 8. Hyperlipidemia. PAST SURGICAL HISTORY: 1. Status post cuffed hemodialysis catheter placement. 2. Status post carpal tunnel surgery. 3. Status post hysterectomy. 4. Status post breast biopsy. 5. Status post colonoscopy. 6. Status post left colon resection. 7. Status post AV fistula placement. ALLERGIES: LISINOPRIL. TRAUMA: None. IMMUNIZATIONS: Up to date. HOSPITALIZATIONS: Please see past medical history. FAMILY HISTORY: No family history of ESRD. SOCIAL HISTORY: The patient lives with her daughter. She lives in [place]. Sedentary lifestyle. No IV drug abuse. Currently, no smoking, no alcohol intake. PHYSICAL EXAMINATION: VITAL SIGNS: Blood pressure is 113/64, heart rate 82, respiratory rate 20, pulse oximetry 91%, tempe rature 98.3, . GENERAL: Awake, alert, comfortable, not in distress. SKIN: Adequate turgor. HEENT: Pinkish conjunctivae, anicteric sclerae. NECK: No neck mass, no carotid bruits, no JVD. CHEST: No deformities. LUNGS: Clear breath sounds, no wheezing, no crackles. HEART: Normal sinus rhythm. No murmur, no gallops or rubs. ABDOMEN: Globular, soft, nontender, no masses. EXTREMITIES: No edema, no deformities. Right upper extremity has - positive for edema, positive for erythema and mild cyanosis on the right hand. The radial pulses are adequate on the right hand. LABORATORY DATA AND IMAGING: Of 04/04/2018, white count 8.4, hemoglobin 8.2. Sodium 130, potassium 4.1, chloride 95, carbon dioxide 33, BUN 23, creatinine 4.29, glucose 338, calcium 8.4, albumin 3.7. C-reactive protein 2.9. Ultrasound of the abdomen is currently pending. ASSESSMENT AND PLAN: 1. End-stage renal disease, stable. We will continue current Tuesday, Tuesday, Tuesday hemodialysis . We will schedule her dialysis after the planned surgery. 2. Right upper extremity swelling/right hand cyanosis - for a surgical intervention by Dr. Hilliard. The dialysis access will be addressed. She does have thrombosis based on the last fistulogram done on the patient. 3. Anemia - restart Epogen 10,000 units subcu every week. Agree with current management. ADDENDUM: Right hand cellulitis, currently on IV vancomycin.
[2018-04-05] MEDS ORDERED: Meperidine HCl/PF 25 MG/ML VIAL SLOW IVP PRN (15:40)
[2018-04-05] MEDS ORDERED: Promethazine HCl 25 MG/ML VIAL IM PRN (15:40)
[2018-04-05] MEDS ORDERED: Promethazine HCl 25 MG/ML VIAL SLOW IVP PRN (15:40)
[2018-04-05] MEDS ORDERED: HYDROmorphone 2 MG/ML VIAL SLOW IVP PRN (15:40)
[2018-04-05 18:45] LABS: Vancomycin, Random 19.7 ug/mL (See Comment)
[2018-04-05] MEDS ORDERED: Non-Formulary Item 1 EACH (Insulin Detemir [Levemir Flextouch] 20 UNITS) SQ SCH (21:00)
[2018-04-05] MEDS ORDERED: Fentanyl 100 MCG/2 ML VIAL SLOW IVP PRN (22:50)
[2018-04-06 00:01] LABS: HBSAB Concentration 0.41 mIU/mL; HBSAg Index 0.23 S/CO (0-0.99); Hep B Surf AB Non-Reactive (NonReactive); Hep B Surf Ag Non-Reactive S/CO (NonReactive)
[2018-04-06] MEDS: Cinacalcet HCl 30 MG TAB PO SCH ×2 (01:34→20:29)
[2018-04-06] MEDS: hydrALAZINE 25 MG TAB PO SCH ×3 (01:35→20:32)
[2018-04-06] MEDS: Valsartan 80 MG TAB PO SCH ×2 (01:36→20:37)
[2018-04-06] MEDS: Sevelamer Carbonate 800 MG TAB PO SCH ×3 (01:36→20:29)
[2018-04-06] MEDS: Atorvastatin Calcium 40 MG TAB PO SCH ×2 (01:37→20:32)
[2018-04-06] MEDS: Topiramate 25 MG TAB PO SCH ×3 (01:37→20:28)
[2018-04-06] MEDS: Carvedilol 25 MG TAB PO SCH ×3 (01:37→20:33)
[2018-04-06] MEDS: Bupropion 150 MG SR TAB PO SCH ×3 (01:40→20:29)
[2018-04-06] MEDS: Insulin Glargine 20 UNITS in Pre-Filled Syringe 1 EACH SC SCH ×2 (01:43→20:34)
[2018-04-06] MEDS: Acetaminophen 325 MG TAB PO PRN (02:56)
[2018-04-06] MEDS: Acetaminophen/Codeine 30-300mg Tablet PO PRN ×2 (03:37→09:14)
[2018-04-06 05:42] LABS: #Eosinphils 0.3 thou/uL (0.0-0.7); #Lymphocytes 1.4 thou/uL (1.20-3.40); #Monocytes 0.7 thou/uL (0.11-0.59); #Neutrophils 4.3 thou/uL (1.40-6.50); %Basophils 0.5 % (0.0-1.0); %Lymphocytes 20.6 % (21.0-51.0); %Monocytes 10.1 % (0.0-10.0); %Neutrophils 63.9 % (42.0-75.0); Mean Corpuscular HGB CONC 30.6 g/dL (32.0-36.0); Mean Corpuscular Hemoglobin 28.2 pg (27.0-31.0); Mean Corpuscular Volume 92.3 fl (81.0-99.0); Mean Platelet Volume 7.8 fL (7.4-10.4); Platelet Count 239 thou/uL (130-400); RBC Distribution Width 14.9 % (11.5-14.5); Red Blood Cell (RBC) Count 2.83 mill/uL (4.20-5.40); White Blood Cell (WBC) Count 6.8 thou/uL (4.8-10.8)
[2018-04-06 06:10] LABS: ALT (SGPT) Less than 7 U/L (8-55); AST (SGOT) 13 U/L (5-34); Albumin 3.6 g/dL (3.4-4.8); Alkaline Phosphatase 72 U/L (40-150); Anion Gap 10 mmol/L (10-20); BUN (Urea Nitrogen) 10 mg/dL (9.8-20.1); Bilirubin, Total 0.3 mg/dL (0.2-1.2); Calc. Creatinine Clearance 35 mL/min (70-130); Calcium 8.6 mg/dL (7.8-10.44); Carbon Dioxide 34 mmol/L (23-31); Chloride 97 mmol/L (98-107); Estimated GFR-MDRD 19; Globulin 3.5 g/dL (2.4-3.5); Glucose 251 mg/dL (80-115); Potassium 3.9 mmol/L (3.5-5.1); Protein, Total 7.1 g/dL (6.0-8.3); Sodium 137 mmol/L (136-145)
[2018-04-06] MEDS: Insulin Regular 300 UNITS/3 ML VIAL SC PRN ×4 (06:26→20:37)
[2018-04-06] MEDS: Liothyronine Sodium 5 MCG TAB PO SCH (09:10)
--- NOTE | 2018-04-06 09:22 | PRG ---
DATE OF SERVICE: 04/06/2018 SUBJECTIVE: Ms. Mariscal is a 62-year-old white female with ESRD - on maintenance hemodialysis and admitted for right arm swelling and pain. She underwent a right operative procedure with the plan o f ligating the access. Her right upper extremity swelling was dramatically improved yesterday. Tinajero kenyetta, the patient is saying that this morning it is a little bit more swollen, but when compared to on admission, this is still significantly decreased swelling. No other complaints. No chest pain or s hortness of breath. OBJECTIVE: VITAL SIGNS: Blood pressure is 137/78, heart rate 92, respiratory rate 18, temperature 98.7, pulse o x 93%. GENERAL: Awake, alert, comfortable, not in distress. SKIN: Adequate turgor. HEENT: She has slightly pale conjunctivae, anicteric sclerae. NECK: No neck mass, no carotid bruits, no JVD. CHEST: No deformities. LUNGS: Clear breath sounds. HEART: Normal sinus rhythm. No murmur, no gallops, no rubs. ABDOMEN: Globular, soft, nontender, no masses. EXTREMITIES: Lower leg - no edema. Right upper extremity swelling - some erythema on the right fing ers. . MEDICATIONS: 04/06/2018 - Reviewed. LABORATORY DATA: 04/06/2018 - White count 6.8, hemoglobin 8. Sodium 137, potassium 3.9, chloride 97 , carbon dioxide 34, BUN 10, creatinine 2.61, glucose 251, AST 13, ALT 7, albumin 3.6. ASSESSMENT AND PLAN: 1. Right upper extremity swelling, secondary to her clotted AV fistula resulting in increased venous pressure. Ligation was done with clinical improvement of the right upper extremity swelling. Surge ry is following. 2. Anemia, currently on maintenance Epogen. P.r.n. blood transfusion. 3. End-stage renal disease, stable. Tolerating hemodialysis. I will schedule her back for dialysis tomorrow on a Tuesday, Tuesday, Tuesday regimen. No changes to be made. Recheck base met and CBC in a.m.
[2018-04-06] MEDS ORDERED: Promethazine 25 MG TAB PO PRN (09:32)
--- NOTE | 2018-04-06 10:10 | PDOC.PN ---
- Subjective Encounter Start Date: 04/06/18 Encounter Start Time: 08:20 pt had surgery yesterday, pt noticed improvement in discoloration of right hand and as well as swelling reduced, this morning family reports some swelling over surgical site and again hand is getting swelling and discolored she has pain in right hand Patient seen and examined for swelling right hand. No overnight events - Objective Resuscitation Status: Resuscitation Status FULL:Full Resuscitation MAR Reviewed: Yes Vital Signs & Weight: Vital Signs (12 hours) Temp Pulse Resp BP BP Pulse Ox 04/06/18 09:09 92 04/06/18 07:40 98.7 F 92 18 137/78 93 L 04/06/18 04:00 99.0 F 83 12 187/80 H 96 04/06/18 03:37 88 187/80 H 04/06/18 01:53 98 F 88 16 92 L 04/06/18 01:40 98 F 88 16 176/73 H 04/06/18 01:35 88 195/87 H 04/06/18 01:34 88 195/87 H Weight Admit Weight 219 lb 15.988 oz Weight 219 lb 15.988 oz Result Diagrams: 04/06/18 04:49 04/06/18 04:49 Additional Labs: Accuchecks 04/06/18 04/05/18 04/05/18 05:43 17:26 12:58 POC Glucose 230 H 185 H 169 H 04/04/18 23:59 POC Glucose 206 H Phys Exam - Physical Examination Constitutional: NAD HEENT: PERRLA, moist MMs, sclera anicteric Neck: no JVD, supple Respiratory: no wheezing, no rales, no rhonchi Cardiovascular: RRR, no significant murmur, no rub Gastrointestinal: soft, non-tender, no distention, positive bowel sounds Musculoskeletal: no edema, pulses present right hand has discoloration but reduced, mild swelling Neurological: non-focal, normal sensation, moves all 4 limbs Psychiatric: normal affect, A&O x 3 Skin: no rash, normal turgor Dx/Plan (1) Cellulitis of right upper extremity Code(s): L03.113 - CELLULITIS OF RIGHT UPPER LIMB Status: Acute Comment: on vancomycin with HD (2) Cephalic vein thrombosis Code(s): I82.619 - ACUTE EMBOLISM AND THROMBOSIS OF SUPERFIC VN UNSP UP EXTREM Status: Acute (3) Dialysis AV fistula malfunction Code(s): T82.590A - [facility] COMPL OF SURGICALLY CREATED ARTERIOVENOUS FISTULA, INIT Status: Acute Comment: s/p surgery (4) Sepsis Code(s): A41.9 - SEPSIS, UNSPECIFIED ORGANISM Status: Acute (5) Anemia of renal disease Code(s): D63.1 - ANEMIA IN CHRONIC KIDNEY DISEASE Status: Chronic (6) Anxiety and depression Code(s): F41.9 - ANXIETY DISORDER, UNSPECIFIED; F32.9 - MAJOR DEPRESSIVE DISORDER, SINGLE EPISODE, UNSPECIFIED Status: Chronic (7) Diabetes type 2, controlled Code(s): E11.9 - TYPE 2 DIABETES MELLITUS WITHOUT COMPLICATIONS Status: Chronic (8) Dyslipidemia Code(s): E78.5 - HYPERLIPIDEMIA, UNSPECIFIED Status: Chronic (9) ESRD on hemodialysis Code(s): N18.6 - END STAGE RENAL DISEASE; Z99.2 - DEPENDENCE ON RENAL DIALYSIS Status: Chronic (10) Hypertension Code(s): I10 - ESSENTIAL (PRIMARY) HYPERTENSION Status: Chronic (11) Hypothyroidism Code(s): E03.9 - HYPOTHYROIDISM, UNSPECIFIED Status: Chronic (12) Obesity (BMI 30-39.9) Code(s): E66.9 - OBESITY, UNSPECIFIED Status: Chronic (13) Secondary hyperparathyroidism of renal origin Code(s): N25.81 - SECONDARY HYPERPARATHYROIDISM OF RENAL ORIGIN Status: Chronic (14) Right lower lobe pneumonia Code(s): J18.1 - LOBAR PNEUMONIA, UNSPECIFIED ORGANISM Status: Suspected - Plan cont current plan of care, plan discussed w/ family, continue antibiotics * add norco for pain control * continue HD as per nephrology * continue vancomycin with HD * medication reviewed as below * symptomatic treatment * discussed with daughter * surgeon following * advised to keep right UE elevated * monitor labs. Review of Systems - Review of Systems Constitutional: negative: fever, chills, sweats, weakness, malaise, other Eyes: negative: Pain, Vision Change, Conjunctivae Inflammation, Eyelid Inflammation, Redness, Other ENT: negative: Ear Pain, Ear Discharge, Nose Pain, Nose Discharge, Nose Congestion, Mouth Pain, Mouth Swelling, Throat Pain, Throat Swelling, Other Respiratory: negative: Cough, Dry, Shortness of Breath, Hemoptysis, SOB with Excertion, Pleuritic Pain, Sputum, Wheezing Cardiovascular: negative: chest pain, palpitations, orthopnea, paroxysmal nocturnal dyspnea, edema, light headedness, other Gastrointestinal: negative: Nausea, Vomiting, Abdominal Pain, Diarrhea, Constipation, Melena, Hematochezia, Other Genitourinary: negative: Dysuria, Frequency, Incontinence, Hematuria, Retention , Other Musculoskeletal: Hand Pain. negative: Neck Pain, Shoulder Pain, Arm Pain, Back Pain, Leg Pain, Foot Pain, Other - Medications/Allergies Allergies/Adverse Reactions: Allergies Allergy/AdvReac Type Severity Reaction Status Date / Time lisinopril Allergy Verified 03/16/18 17:03 Medications: Current Medications Acetaminophen (Tylenol) 650 mg PO Q4H PRN PRN Reason: Headache/Fever or Pain Last Admin: 04/06/18 02:56 Dose: 650 mg Hydrocodone Bitart/Acetaminophen (Antonito 5/325) 1 tab PO Q6H PRN PRN Reason: Pain Al Hydroxide/Mg Hydroxide (Maalox) 15 ml PO Q4H PRN PRN Reason: Heartburn or Indigestion Albuterol/Ipratropium (Duoneb) 3 ml NEB [id number] PRN PRN Reason: SOB &/or Wheezing Artificial Tears (Tears Naturale) 0 drop EA EYE PRN PRN PRN Reason: Dry Eyes Atorvastatin Calcium (Lipitor) 40 mg PO HS [facility] Last Admin: 04/06/18 01:37 Dose: 40 mg Benzonatate (Tessalon) 100 mg PO Q4H PRN PRN Reason: Cough Bisacodyl (Dulcolax) 10 mg NH Q24H PRN PRN Reason: Constipation Bupropion HCl (Wellbutrin Sr) 150 mg PO BID [facility] Last Admin: 04/06/18 09:09 Dose: 150 mg Calcium Carbonate (Tums) 1,000 mg PO Q4H PRN PRN Reason: Heartburn or Indigestion Carvedilol (Coreg) 25 mg PO BID [facility] Last Admin: 04/06/18 09:09 Dose: 25 mg Cefazolin Sodium (Ancef) 2 gm SLOW IVP [facility] Cholecalciferol (Vitamin D3) 1,000 units PO BID [facility] Last Admin: 04/06/18 09:09 Dose: 1,000 units Cinacalcet (Sensipar) 60 mg PO QPM [facility] Last Admin: 04/06/18 01:34 Dose: 60 mg Dextrose/Water (Dextrose 50%) 25 gm SLOW IVP PRN PRN PRN Reason: Hypoglycemia Diphenhydramine HCl (Benadryl) 25 mg PO Q8H PRN PRN Reason: Itching Epoetin Young (Procrit) 10,000 units SC Q7D [facility] Last Admin: 04/05/18 11:57 Dose: 10,000 units Felodipine (Plendil) 10 mg PO QPM [facility] Last Admin: 04/06/18 01:34 Dose: 10 mg Glucagon (Glucagon) 1 mg IM PRN PRN PRN Reason: Hypoglycemia Guaifenesin (Robitussin Sf) 200 mg PO Q4H PRN PRN Reason: Cough Hydralazine HCl (Apresoline) 100 mg PO BID [facility] Last Admin: 04/06/18 09:09 Dose: 100 mg Hydralazine HCl (Apresoline) 10 mg SLOW IVP Q4H PRN PRN Reason: Systolic BP > 180 Last Admin: 04/06/18 03:37 Dose: 10 mg Dextrose/Water (D5w) 1,000 mls @ 0 mls/hr IV .Q0M PRN; As Directed PRN Reason: Hypoglycemia Insulin Glargine 20 units/ (Miscellaneous Medication) 0.2 mls @ 0 mls/hr SC QPM [facility] Last Admin: 04/06/18 01:43 Dose: Not Given Vancomycin HCl 1.25 gm/ Sodium (Chloride) 250 mls @ 166.667 mls/hr [facility]PB [facility] Vancomycin HCl 1 gm/ Device 200 mls @ 200 mls/hr [facility] Vancomycin HCl 750 mg/ Sodium (Chloride) 250 mls @ 250 mls/hr IVPB [facility] Vancomycin HCl 500 mg/ Sodium (Chloride) 100 mls @ 100 mls/hr IVPB [facility] Insulin Human Regular (Humulin R) 0 units SC .MODERATE SLIDING SC PRN PRN Reason: Moderate Correctional Scale Last Admin: 04/06/18 06:26 Dose: 4 unit Insulin Human Regular (Humulin R) 0 units SC .BEDTIME SLIDING SC PRN PRN Reason: Bedtime Correctional Scale Labetalol HCl (Normodyne) 20 mg SLOW IVP Q4H PRN PRN Reason: Systolic BP > 180 Liothyronine Sodium (Cytomel) 5 mcg PO DAILY [facility] Last Admin: 04/06/18 09:10 Dose: 5 mcg Loperamide HCl (Imodium) 2 mg PO PRN PRN PRN Reason: Diarrhea/Loose Stools Loratadine (Claritin) 10 mg PO DAILYPRN PRN PRN Reason: Sinus Symptoms Magnesium Hydroxide (Milk Of Magnesium) 30 ml PO DAILYPRN PRN PRN Reason: Constipation Meclizine HCl (Antivert) 25 mg PO Q8H PRN PRN Reason: Dizziness Mineral Oil/White Petrolatum (Eucerin Cream) 0 gm TOP BIDPRN PRN PRN Reason: Dry Skin Miscellaneous Medication (Pharmacy To Dose) 1 each IVPB PRN PRN PRN Reason: Pharmacy to dose Hold Vancomycin For (Level >20) 0 each FS .AT DIALYSIS [facility] Ondansetron HCl (Zofran Odt) 4 mg PO Q6H PRN PRN Reason: Nausea/Vomiting Last Admin: 04/05/18 07:13 Dose: 4 mg Ondansetron HCl (Zofran) 4 mg IVP Q6H PRN PRN Reason: Nausea/Vomiting Pantoprazole Sodium (Protonix) 40 mg PO DAILY [facility] Last Admin: 04/06/18 09:09 Dose: 40 mg Phenol (Chloraseptic Junction 180 Ml Bot) 0 ml PO PRN PRN PRN Reason: Sore Throat Promethazine HCl (Phenergan) 12.5 mg PO Q6H PRN PRN Reason: Nausea/Vomiting Senna (Senokot) 2 tab PO HSPRN PRN PRN Reason: Constipation Sertraline HCl (Zoloft) 50 mg PO QPM [facility] Last Admin: 04/06/18 01:36 Dose: 50 mg Sertraline HCl (Zoloft) 100 mg PO QAM [facility] Last Admin: 04/06/18 09:09 Dose: 100 mg Sevelamer Carbonate (Renvela) 2,400 mg PO BID [facility] Last Admin: 04/06/18 09:09 Dose: 2,400 mg Sodium Chloride (Flush - Normal Saline) 10 ml IVF Q12HR [facility] Last Admin: 04/06/18 09:10 Dose: 10 ml Sodium Chloride (Flush - Normal Saline) 10 ml IVF PRN PRN PRN Reason: Saline Flush Sodium Chloride ([place] Nasal [place] 0.65%) 0 ml EA NARE QIDPRN PRN PRN Reason: Nasal Congestion Temazepam (Restoril) 15 mg PO HSPRN PRN PRN Reason: Insomnia Topiramate (Topamax) 50 mg PO BID [facility] Last Admin: 04/06/18 09:10 Dose: 50 mg Valsartan (Diovan) 320 mg PO [facility] Last Admin: 04/06/18 01:36 Dose: 320 mg
[2018-04-06] MEDS: HYDROcodone/Acetaminophen 5/325 mg Tablet PO PRN (15:14)
[2018-04-07 05:37] LABS: #Eosinphils 0.3 thou/uL (0.0-0.7); #Lymphocytes 1.6 thou/uL (1.20-3.40); #Monocytes 0.7 thou/uL (0.11-0.59); %Basophils 0.4 % (0.0-1.0); %Eosinophils 4.3 % (0.0-10.0); %Lymphocytes 21.6 % (21.0-51.0); %Monocytes 8.8 % (0.0-10.0); %Neutrophils 64.9 % (42.0-75.0); Hemoglobin 7.5 g/dL (12.0-16.0); Mean Corpuscular HGB CONC 30.9 g/dL (32.0-36.0); Mean Corpuscular Hemoglobin 28.4 pg (27.0-31.0); Mean Corpuscular Volume 92.1 fl (81.0-99.0); Mean Platelet Volume 7.9 fL (7.4-10.4); Platelet Count 232 thou/uL (130-400); Red Blood Cell (RBC) Count 2.62 mill/uL (4.20-5.40); White Blood Cell (WBC) Count 7.6 thou/uL (4.8-10.8)
[2018-04-07] MEDS: Insulin Regular 300 UNITS/3 ML VIAL SC PRN ×2 (05:44→21:25)
[2018-04-07 05:58] LABS: Anion Gap 11 mmol/L (10-20); BUN (Urea Nitrogen) 26 mg/dL (9.8-20.1); Calc. Creatinine Clearance 19 mL/min (70-130); Calcium 8.3 mg/dL (7.8-10.44); Carbon Dioxide 30 mmol/L (23-31); Chloride 98 mmol/L (98-107); Estimated GFR-MDRD 9; Glucose 218 mg/dL (80-115); Sodium 135 mmol/L (136-145)
--- NOTE | 2018-04-07 07:11 | PRG ---
DATE OF SERVICE: 04/07/2018 SUBJECTIVE: Ms. Mariscal is a 62-year-old white female with ESRD and was admitted for right arm swe lling and right hand pain. She was seen by Surgery. The feeling is that she may have increased veno us hypertension resulting from the clotted AV fistula. She underwent a surgical intervention with Dr Rosalee Hilliard. The right upper extremity and right hand swelling is improved. There is some degree of h yperemia noted with this. There was also some bulging noted around the surgical site. It is possibl e this could be a hematoma. Surgery is following. No other complaints today. I have scheduled the patient for her maintenance hemodialysis today. The patient denies any chest pain or shortness of br eath. OBJECTIVE: VITAL SIGNS: Blood pressure is 163/77, heart rate 64, respiratory rate 18, temperature 98.2, pulse o x 95%. GENERAL: Noted to be awake, alert, comfortable, not in overt distress. SKIN: Adequate turgor. HEENT: She has slightly pale conjunctivae, anicteric sclerae. NECK: No neck mass, no carotid bruits, no JVD. CHEST: No deformities. LUNGS: Clear breath sounds. HEART: Normal sinus rhythm. No murmur, no gallops, no rubs. ABDOMEN: Globular, soft, nontender, no masses. EXTREMITIES: No edema. Positive for right hand swelling with mild erythema. Good radial pulses. MEDICATIONS: Of 04/07/2018 was reviewed. LABORATORY DATA: Of 04/07/2018, white count 7.6, hemoglobin 7.5. Sodium 135, potassium 4, chloride 98, carbon dioxide 30, BUN 26, creatinine 4.92, glucose 218, calcium 8.3. ASSESSMENT AND PLAN: 1. End-stage renal disease, stable. We will continue current maintenance hemodialysis. My plan is to do a 4-hour dialysis. Fluid removal only as tolerated. 2. Right hand swelling - slightly improved. Still with mild erythema. Able to move her fingers thi s morning. Surgery is following. 3. Clotted right upper extremity AV fistula - eventual plan for a new creation of AV fistula on the left upper extremity. 4. Anemia. Continue weekly Epogen - p.r.n. blood transfusion.
[2018-04-07 09:07] LABS: Vancomycin, Random 12.5 ug/mL (See Comment)
[2018-04-07] MEDS ORDERED: Heparin 1,000 UNITS/ML VIAL ONE (11:11)
[2018-04-07] MEDS: Sevelamer Carbonate 800 MG TAB PO SCH ×2 (12:36→21:16)
[2018-04-07] MEDS: Liothyronine Sodium 5 MCG TAB PO SCH (12:37)
[2018-04-07] MEDS: hydrALAZINE 25 MG TAB PO SCH ×2 (12:37→21:21)
[2018-04-07] MEDS: Carvedilol 25 MG TAB PO SCH ×2 (12:38→21:15)
[2018-04-07] MEDS: Bupropion 150 MG SR TAB PO SCH ×2 (12:52→21:15)
[2018-04-07] MEDS: Topiramate 25 MG TAB PO SCH ×2 (12:53→21:17)
[2018-04-07] MEDS: HYDROcodone/Acetaminophen 5/325 mg Tablet PO PRN (15:59)
--- NOTE | 2018-04-07 16:56 | PDOC.PN ---
- Subjective Encounter Start Date: 04/07/18 Encounter Start Time: 16:55 Ms. Mariscal was seen today in follow-up of malfunctioning right AV fistula. she says the swelling and discoloration has improved in her hand. - Objective Resuscitation Status: Resuscitation Status FULL:Full Resuscitation MAR Reviewed: Yes Vital Signs & Weight: Vital Signs (12 hours) Temp Pulse Resp BP BP Pulse Ox 04/07/18 16:09 98.3 F 87 16 139/91 H 97 04/07/18 12:37 94 126/90 04/07/18 12:00 98.2 F 94 18 126/90 126/90 95 Weight Admit Weight 219 lb 15.988 oz Weight 219 lb 15.988 oz Result Diagrams: 04/07/18 04:31 04/07/18 04:31 Additional Labs: Accuchecks 04/07/18 04/07/18 04/07/18 16:08 12:41 05:19 POC Glucose 298 H 152 H 232 H 04/06/18 19:51 POC Glucose 251 H Phys Exam - Physical Examination HEENT: PERRLA Respiratory: no wheezing, no rales, no rhonchi, clear to auscultation bilateral Cardiovascular: RRR, no significant murmur, no rub Gastrointestinal: soft, non-tender, positive bowel sounds Musculoskeletal: edema present + swelling in the rightupper extremity, and dark discoloration of the fingertips, good radial and ulnar pulses Dx/Plan (1) Dialysis AV fistula malfunction Code(s): T82.590A - [facility] COMPL OF SURGICALLY CREATED ARTERIOVENOUS FISTULA, INIT Status: Acute Comment: s/p surgery (2) Diabetes type 2, controlled Code(s): E11.9 - TYPE 2 DIABETES MELLITUS WITHOUT COMPLICATIONS Status: Chronic (3) ESRD on hemodialysis Code(s): N18.6 - END STAGE RENAL DISEASE; Z99.2 - DEPENDENCE ON RENAL DIALYSIS Status: Chronic (4) Hypertension Code(s): I10 - ESSENTIAL (PRIMARY) HYPERTENSION Status: Chronic (5) Hypothyroidism Code(s): E03.9 - HYPOTHYROIDISM, UNSPECIFIED Status: Chronic - Plan * AV- Fistula Dysfunction- she has undergone surgery,and the area improved * Continued Observation as per Surgery * DM- blood glucose is elevated- will increase the dose of Lantus * HTN- blood pressure is well controlled * ESRD- continue dialysis as per Nephrology .
[2018-04-07] MEDS: Atorvastatin Calcium 40 MG TAB PO SCH (21:15)
[2018-04-07] MEDS: Cinacalcet HCl 30 MG TAB PO SCH (21:15)
[2018-04-07] MEDS: Valsartan 80 MG TAB PO SCH (21:20)
[2018-04-07] MEDS: Insulin Glargine 30 UNITS in Pre-Filled Syringe 1 EACH SC SCH (21:25)
[2018-04-08] MEDS: HYDROcodone/Acetaminophen 5/325 mg Tablet PO PRN ×2 (07:16→17:39)
[2018-04-08] MEDS: Ondansetron ODT 4 MG TAB PO PRN ×2 (07:16→17:38)
[2018-04-08] MEDS: Insulin Regular 300 UNITS/3 ML VIAL SC PRN ×4 (07:21→22:16)
[2018-04-08] MEDS: Carvedilol 25 MG TAB PO SCH ×2 (09:10→22:15)
[2018-04-08] MEDS: Liothyronine Sodium 5 MCG TAB PO SCH (09:11)
[2018-04-08] MEDS: Topiramate 25 MG TAB PO SCH ×2 (09:11→22:11)
[2018-04-08] MEDS: hydrALAZINE 25 MG TAB PO SCH ×2 (09:11→22:13)
[2018-04-08] MEDS: Sevelamer Carbonate 800 MG TAB PO SCH ×2 (09:13→22:11)
[2018-04-08] MEDS: Bupropion 150 MG SR TAB PO SCH ×2 (09:14→22:10)
--- NOTE | 2018-04-08 15:13 | HP ---
RENAL MEDICINE HISTORY OF PRESENT ILLNESS: Ms. Mariscal is a 62-year-old white female with ESRD and currently on [facility] hemodialysis. She underwent hemodialysis without any difficulty yesterday. We will farideh marlon current Tuesday, Tuesday, Tuesday dialysis regimen. She was initially admitted for right hand swelling. She underwent a surgical intervention with regar ds to her AV fistula and to relieve the increased venous pressure on that right upper extremity. Yoo d swelling and erythema has improved. She has also been evaluated by the hand surgeon. The patient denies any chest pain, shortness of breath. OBJECTIVE: VITAL SIGNS: Blood pressure 145/80, heart rate 80, respiratory rate 16, temperature 98.2, pulse ox 9 8%. GENERAL: Awake, alert, comfortable, not in distress. SKIN: Adequate turgor. HEENT: Slightly pale conjunctivae, anicteric sclerae. NECK: No neck mass, no carotid bruits, no JVD. CHEST: No deformities. LUNGS: Clear breath sounds, no wheezing, no crackles. HEART: Normal sinus rhythm. No murmurs, no gallops, no rubs. ABDOMEN: Globular, soft, nontender. No masses. EXTREMITIES: Mild erythema of the right upper extremity with mild swelling. MEDICATIONS: Medications of 04/08/2018 was reviewed. LABORATORY DATA: Laboratories of 04/07/2018; white count 7.6, hemoglobin 7.5. Sodium 135, potassium 4, chloride 98, carbon dioxide was noted to be at 30, BUN 26, creatinine 4.92. ASSESSMENT AND PLAN: 1. End-stage renal disease, stable. Continuing current 3 times a week hemodialysis - Tuesday, , Tuesday dialysis regimen. We were able to remove 2 liters of fluid yesterday without any difficu lty. Continue to do fluid removal as tolerated by the patient. 2. Anemia, continuing weekly Epogen, adjust as needed. 3. Right hand/erythema and swelling - improved with surgical intervention and ligation of the AV fis raymon? Surgery is following. Hand surgery consult has been done. Continue supportive care. Recheck base met and CBC in a.m.
--- NOTE | 2018-04-08 16:08 | PDOC.PN ---
- Subjective Encounter Start Date: 04/08/18 Encounter Start Time: 16:10 Patient seen and examined for ESRD on HD, DM2 and AV fistula malfunction. She is s/p surgery and doing well. Surgical service recommends observing for now. No acute events overnight. No complaints today. - Objective Resuscitation Status: Resuscitation Status FULL:Full Resuscitation Vital Signs & Weight: Vital Signs (12 hours) Temp Pulse Resp BP BP BP Pulse Ox 04/08/18 12:10 75 16 04/08/18 11:15 98.5 F 75 14 152/81 H 96 04/08/18 09:11 80 145/80 H 04/08/18 07:50 98.2 F 75 16 98 04/08/18 07:25 98.2 F 80 16 145/80 H 98 Weight Admit Weight 219 lb 15.988 oz Weight 219 lb 15.988 oz I&O: 04/07/18 04/08/18 04/09/18 06:59 06:59 06:59 Intake Total 240 Output Total 0 Balance 240 Result Diagrams: 04/07/18 04:31 04/07/18 04:31 Additional Labs: Accuchecks 04/08/18 04/08/18 04/07/18 11:16 05:42 20:44 POC Glucose 260 H 171 H 268 H 04/07/18 04/06/18 16:08 01:34 POC Glucose 298 H 155 H Phys Exam - Physical Examination Constitutional: NAD HEENT: PERRLA, moist MMs, sclera anicteric, oral pharynx no lesions Neck: no nodes, no JVD, supple, full ROM Respiratory: no wheezing, no rales, no rhonchi, clear to auscultation bilateral Cardiovascular: RRR, no significant murmur, no rub Gastrointestinal: soft, non-tender, no distention, positive bowel sounds Musculoskeletal: pulses present, edema present Neurological: non-focal, moves all 4 limbs Psychiatric: normal affect, A&O x 3 Dx/Plan (1) Dialysis AV fistula malfunction Code(s): T82.590A - [facility] COMPL OF SURGICALLY CREATED ARTERIOVENOUS FISTULA, INIT Status: Acute Qualifiers: Encounter type: subsequent encounter Qualified Code(s): T82.590D - Other mechanical complication of surgically created arteriovenous fistula, subsequent encounter Comment: s/p surgery. Doing well. (2) Diabetes type 2, controlled Code(s): E11.9 - TYPE 2 DIABETES MELLITUS WITHOUT COMPLICATIONS Status: Chronic Qualifiers: Diabetes mellitus watermaster insulin use: with senior care use Diabetes mellitus complication status: with kidney complications Diabetes mellitus complication detail: with chronic kidney disease Chronic kidney disease stage : on chronic dialysis Qualified Code(s): E11.22 - Type 2 diabetes mellitus with diabetic chronic kidney disease; N18.6 - End stage renal disease; N18.6 - End stage renal disease; N18.6 - End stage renal disease; N18.6 - End stage renal disease; Z79.4 - watermaster (current) use of insulin; Z79.4 - [facility] ( current) use of insulin; Z79.4 - watermaster (current) use of insulin; Z79.4 - watermaster (current) use of insulin; Z99.2 - Dependence on renal dialysis; Z99.2 - Dependence on renal dialysis; Z99.2 - Dependence on renal dialysis; Z99.2 - Dependence on renal dialysis (3) Dyslipidemia Code(s): E78.5 - HYPERLIPIDEMIA, UNSPECIFIED Status: Chronic (4) ESRD on hemodialysis Code(s): N18.6 - END STAGE RENAL DISEASE; Z99.2 - DEPENDENCE ON RENAL DIALYSIS Status: Chronic (5) Hypertension Code(s): I10 - ESSENTIAL (PRIMARY) HYPERTENSION Status: Chronic Qualifiers: Hypertension type: essential hypertension Qualified Code(s): I10 - Essential (primary) hypertension (6) Hypothyroidism Code(s): E03.9 - HYPOTHYROIDISM, UNSPECIFIED Status: Chronic Qualifiers: Hypothyroidism type: unspecified Qualified Code(s): E03.9 - Hypothyroidism , unspecified (7) Obesity (BMI 30-39.9) Code(s): E66.9 - OBESITY, UNSPECIFIED Status: Chronic - Plan cont current plan of care, plan discussed w/ family, out of bed/ambulate, DVT proph w/SCDs * . Review of Systems - Medications/Allergies Allergies/Adverse Reactions: Allergies Allergy/AdvReac Type Severity Reaction Status Date / Time lisinopril Allergy Verified 03/16/18 17:03 Medications: Current Medications Acetaminophen (Tylenol) 650 mg PO Q4H PRN PRN Reason: Headache/Fever or Pain Last Admin: 04/06/18 02:56 Dose: 650 mg Hydrocodone Bitart/Acetaminophen ([place] 5/325) 1 tab PO Q6H PRN PRN Reason: Pain Last Admin: 04/08/18 07:16 Dose: 1 tab Al Hydroxide/Mg Hydroxide (Maalox) 15 ml PO Q4H PRN PRN Reason: Heartburn or Indigestion Albuterol/Ipratropium (Duoneb) 3 ml NEB [id number] PRN PRN Reason: SOB &/or Wheezing Artificial Tears (Tears Naturale) 0 drop EA EYE PRN PRN PRN Reason: Dry Eyes Atorvastatin Calcium (Lipitor) 40 mg PO HS [facility] Last Admin: 04/07/18 21:15 Dose: 40 mg Benzonatate (Tessalon) 100 mg PO Q4H PRN PRN Reason: Cough Bisacodyl (Dulcolax) 10 mg RI Q24H PRN PRN Reason: Constipation Bupropion HCl (Wellbutrin Sr) 150 mg PO BID [facility] Last Admin: 04/08/18 09:14 Dose: 150 mg Calcium Carbonate (Tums) 1,000 mg PO Q4H PRN PRN Reason: Heartburn or Indigestion Carvedilol (Coreg) 25 mg PO BID [facility] Last Admin: 04/08/18 09:10 Dose: 25 mg Cefazolin Sodium (Ancef) 2 gm SLOW IVP WILLCALL [facility] Cholecalciferol (Vitamin D3) 1,000 units PO BID [facility] Last Admin: 04/08/18 09:11 Dose: 1,000 units Cinacalcet (Sensipar) 60 mg PO QPM [facility] Last Admin: 04/07/18 21:15 Dose: 60 mg Dextrose/Water (Dextrose 50%) 25 gm SLOW IVP PRN PRN PRN Reason: Hypoglycemia Diphenhydramine HCl (Benadryl) 25 mg PO Q8H PRN PRN Reason: Itching Epoetin Young (Procrit) 10,000 units SC Q7D [facility] Last Admin: 04/05/18 11:57 Dose: 10,000 units Felodipine (Plendil) 10 mg PO QPM [facility] Last Admin: 04/07/18 21:20 Dose: 10 mg Glucagon (Glucagon) 1 mg IM PRN PRN PRN Reason: Hypoglycemia Guaifenesin (Robitussin Sf) 200 mg PO Q4H PRN PRN Reason: Cough Hydralazine HCl (Apresoline) 100 mg PO BID [facility] Last Admin: 04/08/18 09:11 Dose: 100 mg Hydralazine HCl (Apresoline) 10 mg SLOW IVP Q4H PRN PRN Reason: Systolic BP > 180 Last Admin: 04/06/18 03:37 Dose: 10 mg Dextrose/Water (D5w) 1,000 mls @ 0 mls/hr IV .Q0M PRN; As Directed PRN Reason: Hypoglycemia Vancomycin HCl 1.25 gm/ Sodium (Chloride) 250 mls @ 166.667 mls/hr IVPB [facility]CALL [facility] Vancomycin HCl 1 gm/ Device 200 mls @ 200 mls/hr IVPB [facility]CALL [facility] Vancomycin HCl 750 mg/ Sodium (Chloride) 250 mls @ 250 mls/hr IVPB [facility] Last Admin: 04/07/18 10:42 Dose: 250 mls Vancomycin HCl 500 mg/ Sodium (Chloride) 100 mls @ 100 mls/hr [facility]PB [facility] Insulin Glargine 30 units/ (Miscellaneous Medication) 0.3 mls @ 0 mls/hr SC [facility] Last Admin: 04/07/18 21:25 Dose: 0.3 mls Insulin Human Regular (Humulin R) 0 units SC .MODERATE SLIDING SC PRN PRN Reason: Moderate Correctional Scale Last Admin: 04/08/18 12:13 Dose: 6 unit Insulin Human Regular (Humulin R) 0 units SC .BEDTIME SLIDING SC PRN PRN Reason: Bedtime Correctional Scale Last Admin: 04/07/18 21:25 Dose: 3 unit Labetalol HCl (Normodyne) 20 mg SLOW IVP Q4H PRN PRN Reason: Systolic BP > 180 Liothyronine Sodium (Cytomel) 5 mcg PO DAILY [facility] Last Admin: 04/08/18 09:11 Dose: 5 mcg Loperamide HCl (Imodium) 2 mg PO PRN PRN PRN Reason: Diarrhea/Loose Stools Loratadine (Claritin) 10 mg PO DAILYPRN PRN PRN Reason: Sinus Symptoms Magnesium Hydroxide (Milk Of Magnesium) 30 ml PO DAILYPRN PRN PRN Reason: Constipation Meclizine HCl (Antivert) 25 mg PO Q8H PRN PRN Reason: Dizziness Mineral Oil/White Petrolatum (Eucerin Cream) 0 gm TOP BIDPRN PRN PRN Reason: Dry Skin Miscellaneous Medication (Pharmacy To Dose) 1 each IVPB PRN PRN PRN Reason: Pharmacy to dose Hold Vancomycin For (Level >20) 0 each FS .AT DIALYSIS [facility] Ondansetron HCl (Zofran Odt) 4 mg PO Q6H PRN PRN Reason: Nausea/Vomiting Last Admin: 04/08/18 07:16 Dose: 4 mg Ondansetron HCl (Zofran) 4 mg IVP Q6H PRN PRN Reason: Nausea/Vomiting Pantoprazole Sodium (Protonix) 40 mg PO DAILY [facility] Last Admin: 04/08/18 09:12 Dose: 40 mg Phenol (Chloraseptic [place] 180 Ml Bot) 0 ml PO PRN PRN PRN Reason: Sore Throat Promethazine HCl (Phenergan) 12.5 mg PO Q6H PRN PRN Reason: Nausea/Vomiting Last Admin: 04/07/18 16:04 Dose: 12.5 mg Senna (Senokot) 2 tab PO HSPRN PRN PRN Reason: Constipation Sertraline HCl (Zoloft) 50 mg PO QPM [facility] Last Admin: 04/07/18 21:16 Dose: 50 mg Sertraline HCl (Zoloft) 100 mg PO QAM [facility] Last Admin: 04/08/18 09:13 Dose: 100 mg Sevelamer Carbonate (Renvela) 2,400 mg PO BID [facility] Last Admin: 04/08/18 09:13 Dose: 2,400 mg Sodium Chloride (Flush - Normal Saline) 10 ml IVF Q12HR [facility] Last Admin: 04/08/18 09:13 Dose: 10 ml Sodium Chloride (Flush - Normal Saline) 10 ml IVF PRN PRN PRN Reason: Saline Flush Sodium Chloride ([place] Nasal [place] 0.65%) 0 ml EA NARE QIDPRN PRN PRN Reason: Nasal Congestion Temazepam (Restoril) 15 mg PO HSPRN PRN PRN Reason: Insomnia Topiramate (Topamax) 50 mg PO BID [facility] Last Admin: 04/08/18 09:11 Dose: 50 mg Valsartan (Diovan) 320 mg PO HS [facility] Last Admin: 04/07/18 21:20 Dose: 320 mg
--- NOTE | 2018-04-08 18:50 | PDOC.GSPN ---
Surgery Progress Note: Subj - Subjective Narrative: Saw patient twice yesterday; between the first time I saw her in dialysis and when I saw her on [place] 3, Dr Garcia did massage on her hand which she states was very painful, but the swelling in her fingers did go down. She feels better today. Her thumb and second finger are pretty normal, and only her third and fourth fingers are hurting now. This is less than before however. Much better AROM. Fingers less swollen daily. Fingertips are warm with brisk cap refill. No thrill/bruit in AVF. A/P) Hand pain due to venous hypertension improving slowly s/p AVF ligation. Continue elevation, OT, massage, and AROM exercises. Will see in clinic in a couple weeks to plan AVF LUE. No labs/new IVs above wrist on left arm. Surgery Progress Note: Obj - Vital signs Vital signs: Vital Signs - Most Recent Temp Pulse Resp BP Pulse Ox 98.5 F 73 16 150/75 H 98 04/08/18 16:00 04/08/18 16:00 04/08/18 16:00 04/08/18 16:00 04/08/18 16:00 Surgery Progress Note: Results - Labs Result Diagrams: 04/07/18 04:31 04/07/18 04:31 Lab results: Laboratory Results - last 24 hr 04/08/18 04/08/18 11:16 15:59 POC Glucose 260 H 244 H
[2018-04-08] MEDS: Valsartan 80 MG TAB PO SCH (22:12)
[2018-04-08] MEDS: Cinacalcet HCl 30 MG TAB PO SCH (22:12)
[2018-04-08] MEDS: Atorvastatin Calcium 40 MG TAB PO SCH (22:15)
[2018-04-08] MEDS: Insulin Glargine 30 UNITS in Pre-Filled Syringe 1 EACH SC SCH (22:31)
[2018-04-09 05:36] LABS: #Eosinphils 0.4 thou/uL (0.0-0.7); #Lymphocytes 1.9 thou/uL (1.20-3.40); #Monocytes 0.7 thou/uL (0.11-0.59); #Neutrophils 5.2 thou/uL (1.40-6.50); %Basophils 0.4 % (0.0-1.0); %Eosinophils 4.6 % (0.0-10.0); %Lymphocytes 23.1 % (21.0-51.0); %Monocytes 8.1 % (0.0-10.0); %Neutrophils 63.7 % (42.0-75.0); Hemoglobin 7.9 g/dL (12.0-16.0); Mean Corpuscular HGB CONC 30.7 g/dL (32.0-36.0); Mean Corpuscular Hemoglobin 27.8 pg (27.0-31.0); Mean Corpuscular Volume 90.8 fl (81.0-99.0); Mean Platelet Volume 7.7 fL (7.4-10.4); Platelet Count 236 thou/uL (130-400); RBC Distribution Width 15.4 % (11.5-14.5); Red Blood Cell (RBC) Count 2.83 mill/uL (4.20-5.40); White Blood Cell (WBC) Count 8.2 thou/uL (4.8-10.8)
[2018-04-09 05:58] LABS: Anion Gap 14 mmol/L (10-20); BUN (Urea Nitrogen) 36 mg/dL (9.8-20.1); Calc. Creatinine Clearance 15 mL/min (70-130); Calcium 8.6 mg/dL (7.8-10.44); Carbon Dioxide 28 mmol/L (23-31); Chloride 95 mmol/L (98-107); Estimated GFR-MDRD 7; Glucose 172 mg/dL (80-115); Potassium 4.2 mmol/L (3.5-5.1); Sodium 133 mmol/L (136-145)
[2018-04-09] MEDS: HYDROcodone/Acetaminophen 5/325 mg Tablet PO PRN ×2 (06:28→23:24)
[2018-04-09] MEDS: Ondansetron ODT 4 MG TAB PO PRN ×2 (06:28→23:25)
[2018-04-09] MEDS: Sevelamer Carbonate 800 MG TAB PO SCH ×2 (08:59→23:12)
[2018-04-09] MEDS: hydrALAZINE 25 MG TAB PO SCH ×3 (09:00→23:14)
[2018-04-09] MEDS: Topiramate 25 MG TAB PO SCH (09:01)
[2018-04-09] MEDS: Liothyronine Sodium 5 MCG TAB PO SCH (09:01)
[2018-04-09] MEDS: Bupropion 150 MG SR TAB PO SCH (09:02)
[2018-04-09] MEDS: Carvedilol 25 MG TAB PO SCH ×2 (09:02→23:14)
[2018-04-09] MEDS: Insulin Regular 300 UNITS/3 ML VIAL SC PRN ×3 (10:56→23:24)
--- NOTE | 2018-04-09 11:39 | PDOC.PN ---
- Subjective Encounter Start Date: 04/09/18 Encounter Start Time: 11:39 Patient seen and examined for ESRD on HD, DM2 and AV fistula malfunction. She is s/p surgery and doing well. Surgical service on board and will f/u with patient in clinic. No acute events overnight. No complaints today. - Objective Resuscitation Status: Resuscitation Status FULL:Full Resuscitation MAR Reviewed: Yes Vital Signs & Weight: Vital Signs (12 hours) Temp Pulse Resp BP BP BP Pulse Ox 04/09/18 09:00 79 162/84 H 04/09/18 08:00 98.5 F 79 16 95 04/09/18 07:54 98.5 F 79 16 194/91 H 92 L 04/09/18 04:00 97.6 F 79 20 179/78 H 95 04/09/18 00:00 97.9 F 80 16 145/76 H 171/85 H 100 Weight Admit Weight 219 lb 15.988 oz Weight 219 lb 15.988 oz I&O: 04/08/18 04/09/18 04/10/18 06:59 06:59 06:59 Intake Total 240 510 Output Total 0 Balance 240 510 Result Diagrams: 04/09/18 05:08 04/09/18 05:08 Additional Labs: Accuchecks 04/09/18 04/09/18 04/08/18 10:29 06:28 20:46 POC Glucose 186 H 146 H 258 H 04/08/18 15:59 POC Glucose 244 H Phys Exam - Physical Examination Constitutional: NAD HEENT: PERRLA, moist MMs, sclera anicteric Neck: no JVD, supple, full ROM Respiratory: no wheezing, no rales, no rhonchi, clear to auscultation bilateral Cardiovascular: RRR, no significant murmur, no rub Gastrointestinal: soft, non-tender, no distention, positive bowel sounds Musculoskeletal: no edema, pulses present Neurological: non-focal, moves all 4 limbs Psychiatric: normal affect, A&O x 3 Skin: no rash, normal turgor Dx/Plan (1) Dialysis AV fistula malfunction Code(s): T82.590A - [facility] COMPL OF SURGICALLY CREATED ARTERIOVENOUS FISTULA, INIT Status: Acute Qualifiers: Encounter type: subsequent encounter Qualified Code(s): T82.590D - Other mechanical complication of surgically created arteriovenous fistula, subsequent encounter Comment: Stable s/p surgery. 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 Diabetes mellitus complication status: with kidney complications Diabetes mellitus complication detail: with chronic kidney disease Chronic kidney disease stage : on chronic dialysis Qualified Code(s): E11.22 - Type 2 diabetes mellitus with diabetic chronic kidney disease; N18.6 - End stage renal disease; Z99.2 - Dependence on renal dialysis; Z99.2 - Dependence on renal dialysis; Z99.2 - Dependence on renal dialysis; N18.6 - End stage renal disease; N18.6 - End stage renal disease; N18.6 - End stage renal disease; Z79.4 - case management rn (current ) use of insulin; Z79.4 - penitentiary (current) use of insulin; Z79.4 - case management rn (current) use of insulin; Z79.4 - penitentiary (current) use of insulin; Z99.2 - Dependence on renal dialysis (3) Dyslipidemia Code(s): E78.5 - HYPERLIPIDEMIA, UNSPECIFIED Status: Chronic (4) ESRD on hemodialysis Code(s): N18.6 - END STAGE RENAL DISEASE; Z99.2 - DEPENDENCE ON RENAL DIALYSIS Status: Chronic (5) Hypertension Code(s): I10 - ESSENTIAL (PRIMARY) HYPERTENSION Status: Chronic Qualifiers: Hypertension type: essential hypertension Qualified Code(s): I10 - Essential (primary) hypertension (6) Hypothyroidism Code(s): E03.9 - HYPOTHYROIDISM, UNSPECIFIED Status: Chronic Qualifiers: Hypothyroidism type: unspecified Qualified Code(s): E03.9 - Hypothyroidism , unspecified (7) Obesity (BMI 30-39.9) Code(s): E66.9 - OBESITY, UNSPECIFIED Status: Chronic - Plan cont current plan of care, plan discussed w/ family, out of bed/ambulate, DVT proph w/SCDs Will f/u Surgical service on outpatient basis. Nephrology will dialyze tomorrow. Discharge tomorrow after HD. Review of Systems - Medications/Allergies Allergies/Adverse Reactions: Allergies Allergy/AdvReac Type Severity Reaction Status Date / Time lisinopril Allergy Verified 03/16/18 17:03 Medications: Current Medications Acetaminophen (Tylenol) 650 mg PO Q4H PRN PRN Reason: Headache/Fever or Pain Last Admin: 04/06/18 02:56 Dose: 650 mg Hydrocodone Bitart/Acetaminophen ([place] 5/325) 1 tab PO Q6H PRN PRN Reason: Pain Last Admin: 04/09/18 06:28 Dose: 1 tab Al Hydroxide/Mg Hydroxide (Maalox) 15 ml PO Q4H PRN PRN Reason: Heartburn or Indigestion Albuterol/Ipratropium (Duoneb) 3 ml NEB [id number] PRN PRN Reason: SOB &/or Wheezing Artificial Tears (Tears Naturale) 0 drop EA EYE PRN PRN PRN Reason: Dry Eyes Atorvastatin Calcium (Lipitor) 40 mg PO HS [facility] Last Admin: 04/08/18 22:15 Dose: 40 mg Benzonatate (Tessalon) 100 mg PO Q4H PRN PRN Reason: Cough Bisacodyl (Dulcolax) 10 mg ID Q24H PRN PRN Reason: Constipation Bupropion HCl (Wellbutrin Sr) 150 mg PO BID [facility] Last Admin: 04/09/18 09:02 Dose: 150 mg Calcium Carbonate (Tums) 1,000 mg PO Q4H PRN PRN Reason: Heartburn or Indigestion Carvedilol (Coreg) 25 mg PO BID [facility] Last Admin: 04/09/18 09:02 Dose: 25 mg Cefazolin Sodium (Ancef) 2 gm SLOW IVP [facility]CALL [facility] Cholecalciferol (Vitamin D3) 1,000 units PO BID [facility] Last Admin: 04/09/18 09:00 Dose: 1,000 units Cinacalcet (Sensipar) 60 mg PO QPM [facility] Last Admin: 04/08/18 22:12 Dose: 60 mg Dextrose/Water (Dextrose 50%) 25 gm SLOW IVP PRN PRN PRN Reason: Hypoglycemia Diphenhydramine HCl (Benadryl) 25 mg PO Q8H PRN PRN Reason: Itching Epoetin Young (Procrit) 10,000 units SC Q7D [facility] Last Admin: 04/05/18 11:57 Dose: 10,000 units Felodipine (Plendil) 10 mg PO QPM [facility] Last Admin: 04/08/18 22:15 Dose: 10 mg Glucagon (Glucagon) 1 mg IM PRN PRN PRN Reason: Hypoglycemia Guaifenesin (Robitussin Sf) 200 mg PO Q4H PRN PRN Reason: Cough Hydralazine HCl (Apresoline) 10 mg SLOW IVP Q4H PRN PRN Reason: Systolic BP > 180 Last Admin: 04/06/18 03:37 Dose: 10 mg Hydralazine HCl (Apresoline) 100 mg PO TID [facility] Last Admin: 04/09/18 09:00 Dose: 100 mg Dextrose/Water (D5w) 1,000 mls @ 0 mls/hr IV .Q0M PRN; As Directed PRN Reason: Hypoglycemia Vancomycin HCl 1.25 gm/ Sodium (Chloride) 250 mls @ 166.667 mls/hr IVPB [facility]CALL [facility] Vancomycin HCl 1 gm/ Device 200 mls @ 200 mls/hr IVPB WILLCALL [facility] Vancomycin HCl 750 mg/ Sodium (Chloride) 250 mls @ 250 mls/hr IVPB [facility]CALL [facility] Last Admin: 04/07/18 10:42 Dose: 250 mls Vancomycin HCl 500 mg/ Sodium (Chloride) 100 mls @ 100 mls/hr IVPB [facility]CALL [facility] Insulin Glargine 30 units/ (Miscellaneous Medication) 0.3 mls @ 0 mls/hr SC [facility] Last Admin: 04/08/18 22:31 Dose: 0.3 mls Insulin Human Regular (Humulin R) 0 units SC .MODERATE SLIDING SC PRN PRN Reason: Moderate Correctional Scale Last Admin: 04/09/18 10:56 Dose: 2 unit Insulin Human Regular (Humulin R) 0 units SC .BEDTIME SLIDING SC PRN PRN Reason: Bedtime Correctional Scale Last Admin: 04/08/18 22:16 Dose: 3 unit Labetalol HCl (Normodyne) 20 mg SLOW IVP Q4H PRN PRN Reason: Systolic BP > 180 Liothyronine Sodium (Cytomel) 5 mcg PO DAILY [facility] Last Admin: 04/09/18 09:01 Dose: 5 mcg Loperamide HCl (Imodium) 2 mg PO PRN PRN PRN Reason: Diarrhea/Loose Stools Loratadine (Claritin) 10 mg PO DAILYPRN PRN PRN Reason: Sinus Symptoms Magnesium Hydroxide (Milk Of Magnesium) 30 ml PO DAILYPRN PRN PRN Reason: Constipation Meclizine HCl (Antivert) 25 mg PO Q8H PRN PRN Reason: Dizziness Mineral Oil/White Petrolatum (Eucerin Cream) 0 gm TOP BIDPRN PRN PRN Reason: Dry Skin Miscellaneous Medication (Pharmacy To Dose) 1 each IVPB PRN PRN PRN Reason: Pharmacy to dose Hold Vancomycin For (Level >20) 0 each FS .AT DIALYSIS [facility] Ondansetron HCl (Zofran Odt) 4 mg PO Q6H PRN PRN Reason: Nausea/Vomiting Last Admin: 04/09/18 06:28 Dose: 4 mg Ondansetron HCl (Zofran) 4 mg IVP Q6H PRN PRN Reason: Nausea/Vomiting Pantoprazole Sodium (Protonix) 40 mg PO DAILY [facility] Last Admin: 04/09/18 09:01 Dose: 40 mg Phenol (Chloraseptic [place] 180 Ml Bot) 0 ml PO PRN PRN PRN Reason: Sore Throat Promethazine HCl (Phenergan) 12.5 mg PO Q6H PRN PRN Reason: Nausea/Vomiting Last Admin: 04/07/18 16:04 Dose: 12.5 mg Senna (Senokot) 2 tab PO HSPRN PRN PRN Reason: Constipation Sertraline HCl (Zoloft) 50 mg PO QPM [facility] Last Admin: 04/08/18 22:14 Dose: 50 mg Sertraline HCl (Zoloft) 100 mg PO QAM [facility] Last Admin: 04/09/18 09:02 Dose: 100 mg Sevelamer Carbonate (Renvela) 2,400 mg PO BID [facility] Last Admin: 04/09/18 08:59 Dose: 2,400 mg Sodium Chloride (Flush - Normal Saline) 10 ml IVF Q12HR [facility] Last Admin: 04/09/18 09:03 Dose: 10 ml Sodium Chloride (Flush - Normal Saline) 10 ml IVF PRN PRN PRN Reason: Saline Flush Sodium Chloride ([place] Nasal [place] 0.65%) 0 ml EA NARE QIDPRN PRN PRN Reason: Nasal Congestion Temazepam (Restoril) 15 mg PO HSPRN PRN PRN Reason: Insomnia Topiramate (Topamax) 50 mg PO BID [facility] Last Admin: 04/09/18 09:01 Dose: 50 mg Valsartan (Diovan) 320 mg PO [facility] Last Admin: 04/08/18 22:12 Dose: 320 mg
--- NOTE | 2018-04-09 12:57 | PRG ---
DATE OF SERVICE: 04/09/2018 RENAL MEDICINE SUBJECTIVE: Ms. Mariscal is a 62-year-old white female who was admitted for severe right hand swell ing secondary to increased venous pressure from her thrombosed AV fistula. She underwent ligation of the said AV fistula and right hand swelling is clinically much improved. No new complaints today, n o chest pain or shortness of breath. She has also been reevaluated by the hand surgeon. We were following her up for her maintenance hemodialysis. We will continue her current Tuesday, and Tuesday dialysis regimen. No other complaints, no chest pain or shortness of breath. PHYSICAL EXAMINATION: VITAL SIGNS: Blood pressure is 162/84, heart rate 79, respiratory rate 16, temperature 98.5, pulse o x 92% room air. GENERAL: Awake, alert, comfortable, not in distress. SKIN: Adequate turgor. HEENT: She has slightly pale conjunctivae, anicteric sclerae. NECK: No neck mass, no carotid bruits, no JVD. CHEST: No deformities. LUNGS: Clear breath sounds, no wheezing, no crackles. HEART: Normal sinus rhythm. No murmurs, no gallops, no rubs. ABDOMEN: Globular, soft, nontender, no masses. EXTREMITIES: No edema. Right hand swelling is minimal. Mild erythema on the right hand. MEDICATIONS: Medications of 04/09/2018 was reviewed. LABORATORY DATA: Laboratories of 04/09/2018; white count 8.2, hemoglobin 7.9. Sodium 133, potassium 4.2, chloride 95, carbon dioxide 28, BUN 36, creatinine 5.99, glucose 172, calcium 8.6. ASSESSMENT AND PLAN: 1. Anemia, currently on weekly Epogen at 10,000 units subcutaneously every week. 2. End-stage renal disease, stable. Continue Tuesday, Tuesday and Tuesday hemodialysis. There is n o indication for any dialytic intervention. 3. Right hand swelling - secondary to a thrombosed AV fistula resulting in increased venous pressure . She underwent a surgical intervention where the AV fistula was said to have been ligated. The katarina n in the future, once the hand swelling is better, is to consider making a new AV fistula in the left upper extremity. Overall, agree with current management.
[2018-04-09] MEDS: Valsartan 80 MG TAB PO SCH (23:11)
[2018-04-09] MEDS: Atorvastatin Calcium 40 MG TAB PO SCH (23:13)
[2018-04-09] MEDS: Cinacalcet HCl 30 MG TAB PO SCH (23:13)
[2018-04-09] MEDS: Insulin Glargine 30 UNITS in Pre-Filled Syringe 1 EACH SC SCH (23:23)
[2018-04-10] MEDS: Bupropion 150 MG SR TAB PO SCH ×2 (00:19→11:09)
[2018-04-10] MEDS: Topiramate 25 MG TAB PO SCH ×2 (00:19→11:10)
[2018-04-10 05:04] LABS: Hemoglobin 7.7 g/dL (12.0-16.0); Mean Corpuscular HGB CONC 31.5 g/dL (32.0-36.0); Mean Corpuscular Hemoglobin 28.1 pg (27.0-31.0); Mean Corpuscular Volume 89.1 fl (81.0-99.0); Mean Platelet Volume 7.8 fL (7.4-10.4); Platelet Count 217 thou/uL (130-400); RBC Distribution Width 15.4 % (11.5-14.5); Red Blood Cell (RBC) Count 2.74 mill/uL (4.20-5.40); White Blood Cell (WBC) Count 8.8 thou/uL (4.8-10.8)
[2018-04-10 05:13] LABS: Anion Gap 14 mmol/L (10-20); BUN (Urea Nitrogen) 52 mg/dL (9.8-20.1); Calc. Creatinine Clearance 12 mL/min (70-130); Calcium 8.4 mg/dL (7.8-10.44); Carbon Dioxide 29 mmol/L (23-31); Chloride 94 mmol/L (98-107); Estimated GFR-MDRD 5; Glucose 174 mg/dL (80-115); Potassium 4.2 mmol/L (3.5-5.1); Sodium 133 mmol/L (136-145)
--- NOTE | 2018-04-10 05:24 | PDOC.OP ---
Operative Note - Operative Note Operative Note: PROCEDURE: Ligation of left upper extremity AV fistula DATE OF PROCEDURE: SURGEON: Tony Hilliard M.D. PREOPERATIVE DIAGNOSES: Severe venous hypertension of left upper extremity due to obstruction of outflow of upper arm cephalic AV fistula with patent retrograde flow POSTOPERATIVE DIAGNOSIS: Severe venous hypertension of left upper extremity due to obstruction of outflow of upper arm cephalic AV fistula with patent retrograde flow HISTORY: Patient with a left upper arm cephalic AV fistula with multiple large aneurysms. This thrombosed and an operative thrombectomy was unsuccessful. She was given the option of returning to her vascular surgeon in [place] for attempted declotting but decided not to do this. She did not follow up as an outpatient for ligation of her fistula for return to the ER due to increasing pain in her right hand. Ligation of the fistula was recommended. PROCEDURE IN DETAIL: After informed consent was obtained and appropriate antibiotics continued the patient was taken to the operating on she was placed in supine position and anesthesia administered. She was prepped and draped in standard sterile fashion and local anesthesia infused. The previous antecubital incision was reopened and dissection carried down to the fistula. This was aneurysmally dilated and tortuous making identification of the perforating vessel which was anastomosed to the artery somewhat difficult. Using a combination of Doppler and palpation the fistulous connection was able to be identified. This was coming off somewhat laterally from the vein and then passing under the aneurysmal vein making dissection somewhat hazardous but it was able to be dissected free circumferentially. When this vessel was occluded flow in the forearm cephalic vein ceased but flow in the radial artery was maintained. The vessel was ligated and hemostasis in the wound was verified. The wound was irrigated and Surgicel placed within the wound. The subcutaneous tissues were reapproximated with running 3-0 Monocryl suture and the skin was closed with a running 4-0 Monocryl suture. Dermabond dressings were placed and the patient was taken to the recovery room in good condition. Estimated blood loss was minimal. There were no complications. There were no specimens
[2018-04-10] MEDS: Insulin Regular 300 UNITS/3 ML VIAL SC PRN (06:52)
--- NOTE | 2018-04-10 10:23 | PRG ---
DATE OF SERVICE: 04/10/2018 SERVICE: Renal Medicine. SUBJECTIVE: Ms. Mariscal is a 62-year-old white female with ESRD and [facility]. She is undergoing dialysis today. I am at the bedside supervis ing her dialysis. She is tolerating said treatment. Our plan is to remove 3.5 liters of fluid with her. Her right upper extremity swelling is much improved after ligation of her AV fistula. No other complaints. No chest pain or shortness of breath. OBJECTIVE: VITAL SIGNS: Blood pressure 169/73, heart rate 79, respiratory rate 16, temperature 98.6, pulse ox 9 5%. GENERAL EXAM: Awake, alert, comfortable, not in distress. SKIN: Adequate turgor. HEENT: Slightly pale conjunctivae, anicteric sclerae. NECK: No neck mass, no carotid bruits, no JVD. CHEST: No deformities. LUNGS: Clear breath sounds, no wheezing, no crackles. HEART: Normal sinus rhythm. No murmur, no gallops, no rubs. ABDOMEN: Globular, soft, nontender. No masses. EXTREMITIES: Lower legs, no edema. Right upper extremity, very minimal edema, mild erythema of the right hand. Good radial pulses, right. Medications of 04/10/2018 reviewed. LABORATORY DATA: Laboratories of 04/10/2018, white count 8.8, hemoglobin 7.7, hematocrit 24.4. Sodi um 133, potassium 4.2, chloride 94, carbon dioxide 29, BUN 52, creatinine 7.61, calcium 8.4. ASSESSMENT AND PLAN: 1. End-stage renal disease, stable. Tolerating current hemodialysis regimen. We will do a 4-hour h emodialysis. 3.5 liter of fluid being attempted to remove, no heparin use for the moment. 2. Right upper extremity swelling, much improved with ligation of the AV fistula. Case discussed wi th Dr. Hilliard and the plan is to make a new left upper extremity AV fistula in the near future. Agree with current plans. Consider discharge today.
[2018-04-10] MEDS: Liothyronine Sodium 5 MCG TAB PO SCH (11:09)
[2018-04-10] MEDS: hydrALAZINE 25 MG TAB PO SCH ×2 (11:09→15:15)
[2018-04-10] MEDS: Carvedilol 25 MG TAB PO SCH (11:09)
[2018-04-10] MEDS: Sevelamer Carbonate 800 MG TAB PO SCH (11:10)
[2018-04-10] MEDS: Ondansetron ODT 4 MG TAB PO PRN (12:28)
--- NOTE | 2018-04-10 14:27 | DIS ---
DATE OF ADMISSION: 04/04/2018 DATE OF DISCHARGE: 04/10/2018 DISCHARGE DIAGNOSES: 1. Malfunctioning right arm fistula. 2. Sepsis secondary to right upper extremity cellulitis. 3. 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 4. Diabetes mellitus, type 2. 5. Uncontrolled depression. 6. Hypertension. 7. Hyperlipidemia. 8. Hypothyroidism. 9. Obesity with BMI 34.5. 10. End-stage renal disease on hemodialysis. 11. Secondary hyperparathyroidism. HISTORY OF PRESENT ILLNESS/HOSPITAL COURSE: Ms. Adeola Mariscal is a 60-year-old female with en d-stage renal disease on hemodialysis who presented to the emergency room for worsening pain and swel ling of her right arm fistula over the last week. The pain got progressively worse with erythema of her right arm. She had a fistulogram attempted [address] Hilliard. She denies chest pain, s hortness of breath or palpitation. In the emergency room, her initial vital signs showed temperature of 100.7, respiratory rate of 18, pulse rate of 92, blood pressure 172/75. Chest x-ray showed quest ionable pneumonia. Right upper extremity Doppler showed occlusion of the cephalic vein at the level of the elbow. X-ray of the hand was negative for acute findings. She received vancomycin, Zosyn, mo rphine, Zofran and Phenergan in the emergency room. Pain was 10/10 and pulses were palpable. She wa s then admitted for sepsis and malfunctioning AV fistula. Antibiotics were continued. Nephrology wa s consulted for maintenance hemodialysis. Dr. Hilliard was also consulted for her malfunctioning righ t fistula. She underwent ligation of the left upper extremity AV fistula. She tolerated the procedu re well. She continued to have improved with treatment and was deemed stable for discharge. On the day of discharge, she had no complaints and she reported she was feeling very well. DISCHARGE MEDICATIONS: Benadryl 25 mg p.o. at bedtime, acetaminophen 325 mg p.o. p.r.n. for headache and pain, Tessalon Perles 200 mg t.i.d. p.r.n., [place] 1-2 tablets q.4 hours p.r.n., insulin aspart s liding scale, loratadine 10 mg daily, meclizine 25 mg tablet, 2 tablets q.p.m. Ondansetron 4 mg p.o. b.i.d. on nondialysis days and 8 mg on dialysis days, Ventolin inhaler 2 puffs inhalation every 4 aurora rs p.r.n. for shortness of breath, atorvastatin 40 mg at bedtime, bupropion 150 mg b.i.d., carvedilol 25 mg b.i.d., cholecalciferol 1000 mg b.i.d., cinacalcet 60 mg q.p.m. Felodipine 10 mg q.p.m. and i nsulin 45 units q.p.m., liothyronine sodium 5 mcg daily, pantoprazole 40 mg daily, Promethazine 25 mg b.i.d., sertraline 0.5 mg q.p.m., hydralazine 100 mg q.a.m., sertraline 50 mg q.p.m., Renvela 800 mg tablets, 3 tabs b.i.d., topiramate 50 mg b.i.d., valsartan 320 mg at bedtime. PHYSICAL EXAMINATION: She was examined on the day of discharge. VITAL SIGNS: Temperature 98.6 degrees Fahrenheit, pulse rate 79, respiratory rate 16, oxygen saturat ion 95% on room air, blood pressure 169/73. GENERAL: Not in acute distress. HEENT: PERRLA. Moist mucous membranes. HEAD: Normocephalic, atraumatic. NECK: Supple, full range of movement. No JVD. RESPIRATORY: Vesicular breath sounds bilaterally. No wheezes, rales or rhonchi. CARDIOVASCULAR: S1 and S2, only with regular rate and rhythm. No murmurs, rubs or gallops. ABDOMEN: Soft, nontender, nondistended. Bowel sounds normoactive. MUSCULOSKELETAL: No edema. NEUROLOGIC: No focal deficits other than well oriented. PSYCHIATRIC: Normal mood and affect. SKIN: Warm and dry, well-perfused. No rashes or lesions. LABORATORY DATA: WBC 8.8, hemoglobin 7.7, platelet count 217. Sodium 133, potassium 4.3, chloride 9 4, carbon dioxide 29. Anion gap 14, BUN 52, creatinine 7.61, glucose 174, calcium 8.4. IMAGING: Abdomen ultrasound showed relative bladder distention, can be a sign of bladder outlet obst ruction, although no other ultrasonographic findings of acute cholecystitis apparent. Vascular ultr asound: As stated in HPI showed occlusion of the cephalic vein at the level of the elbow. PROCEDURES: Ligation of left upper extremity AV fistula. CONSULTATIONS: Nephrology, General Surgery. CONDITION ON DISCHARGE: Stable and improved. DIET: Diabetic renal. CARE GOALS: Follow up with her primary care physician within 1 week. DISCHARGE ACTIVITY: Resume as tolerated. Discharge time 65 minutes including chart review and documentation.
[2018-04-10 14:43] VITALS: TEMP 98.2
[2018-04-10] MEDS: Acetaminophen 325 MG TAB PO PRN (15:20)
[2018-04-10 15:40] VITALS: BP 147/67
== END 2018-04-10 15:35 | disposition home or self-care (01) | DRG 252 ==
LOC: ERS 18:14 → 3SE 23:52 → SURG A 04-06 00:47
PROVIDERS: ADMIT Internal Medicine; ATTEND Internal Medicine
PROC: 05LD0ZZ Occlusion of Right Cephalic Vein, Open Approach (ICD-10-PCS; principal; 2018-04-05)
PROC: 5A1D70Z Performance of Urinary Filtration, Intermittent, Less than 6 Hours Per Day (ICD-10-PCS; 2018-04-05)
PROC: 5A1D70Z Performance of Urinary Filtration, Intermittent, Less than 6 Hours Per Day (ICD-10-PCS; 2018-04-07)
PROC: 5A1D70Z Performance of Urinary Filtration, Intermittent, Less than 6 Hours Per Day (ICD-10-PCS; 2018-04-10)
DX: T82.318A Breakdown (mechanical) of other vascular grafts, initial encounter (principal); A41.9 Sepsis, unspecified organism; N18.6 End stage renal disease; I82.611 Acute embolism and thrombosis of superficial veins of right upper extremity; I12.0 Hypertensive chronic kidney disease with stage 5 chronic kidney disease or end stage renal disease; N25.81 Secondary hyperparathyroidism of renal origin; L03.113 Cellulitis of right upper limb; T82.868A Thrombosis due to vascular prosthetic devices, implants and grafts, initial encounter; E11.22 Type 2 diabetes mellitus with diabetic chronic kidney disease; E11.65 Type 2 diabetes mellitus with hyperglycemia; F32.9 Major depressive disorder, single episode, unspecified; E78.5 Hyperlipidemia, unspecified; E03.9 Hypothyroidism, unspecified; D63.1 Anemia in chronic kidney disease; B96.89 Other specified bacterial agents as the cause of diseases classified elsewhere; E66.9 Obesity, unspecified; Z68.34 Body mass index [BMI] 34.0-34.9, adult; F41.9 Anxiety disorder, unspecified; Z98.0 Intestinal bypass and anastomosis status; Z99.2 Dependence on renal dialysis; Z79.4 Long term (current) use of insulin; Z90.49 Acquired absence of other specified parts of digestive tract; Z90.710 Acquired absence of both cervix and uterus; Y92.009 Unspecified place in unspecified non-institutional (private) residence as the place of occurrence of the external cause
CPT/HCPCS: 36415; 36416; 51701; 71045; 76705; 80048; 80053; 80202; 81003; 81015; 83605; 85025; 85027; 85379; 85610; 85652; 85730; 86140; 86706; 87040; 87086; 87340; 90935; 96365; 96367; 96375; A4216; A4353; G0257; J0360; J1644; J1815; J2001; J2270; J2405; J2543; J2550; J2704; J2720; J2765; J3010; J3370; J7050; Q0162; Q4081; Q9967

== ENCOUNTER 2020-12-29 15:08 | Inpatient (IN) | payer MEDICARE ==
[~2020-12-29 15:08] MED LIST: Iopamidol-370 76% 500 ML 1 ML ONE
[2020-12-29 16:20] LABS: #Lymphocytes 0.3 thou/uL (1.20-3.40); #Neutrophils 1.7 thou/uL (1.40-6.50); %Eosinophils 0.3 % (0.0-10.0); %Monocytes 1.6 % (0.0-10.0); %Neutrophils 85.1 % (42.0-75.0); Hemoglobin 12.8 g/dL (12.0-16.0); Mean Corpuscular HGB CONC 31.3 g/dL (32.0-36.0); Mean Corpuscular Hemoglobin 29.7 pg (27.0-31.0); Mean Corpuscular Volume 95.1 fL (78.0-98.0); Mean Platelet Volume 11.1 fL (7.4-10.4); Platelet Count 92 thou/uL (130-400); RBC Distribution Width 16.2 % (11.5-14.5); Red Blood Cell (RBC) Count 4.29 mill/uL (4.20-5.40)
[2020-12-29 16:33] LABS: ALT (SGPT) 253 U/L (8-55); AST (SGOT) 1124 U/L (5-34); Albumin 3.4 g/dL (3.4-4.8); Alkaline Phosphatase 266 U/L (40-110); Anion Gap 20 mmol/L (10-20); BUN (Urea Nitrogen) 20 mg/dL (9.8-20.1); Bilirubin, Total 2.1 mg/dL (0.2-1.2); CK (CPK) 11 U/L (29-168); Calc. Creatinine Clearance 0 mL/min (70-130); Calcium 9.4 mg/dL (7.8-10.44); Carbon Dioxide 30 mmol/L (23-31); Chloride 93 mmol/L (98-107); Glucose 268 mg/dL (80-115); Lipase 79 U/L (8-78); Potassium 4.8 mmol/L (3.5-5.1); Protein, Total 7.4 g/dL (5.8-8.1); Sodium 138 mmol/L (136-145)
[2020-12-29 16:52] LABS: CKMB 0.9 ng/mL (0-6.6)
--- NOTE | 2020-12-29 18:59 | RAD ---
PORTABLE CHEST: HISTORY: Malaise. Cough and shortness of breath. COMPARISON: 04/04/2018 FINDINGS: The lungs are well aerated. The heart size is upper normal and stable. Vascularity is normal. There is a focal density in the peripheral left lung, along the chest wall, which is indeterminate. I cannot exclude focal infiltrate or nodular density at this site. The lungs otherwise appear clear. No evidence of effusion. IMPRESSION: Indeterminate density along the left lateral chest wall. Recommend follow-up PA and lateral views of the chest. POS: AGW
[2020-12-29] MEDS ORDERED: cefTRIAXone\\ROCEPHIN 2 GM VIAL ONE (19:00)
[2020-12-29] MEDS ORDERED: Dexamethasone 10 MG/ML VIAL ONE (19:00)
[2020-12-29] MEDS ORDERED: Vancomycin 1 GM/200 ML BAG ONE (19:00)
[2020-12-29] MEDS ORDERED: Aspirin 325 MG TAB ONE (19:00)
[2020-12-29] MEDS ORDERED: Ondansetron PF 4 MG/2 ML Vial ONE (19:22)
[2020-12-29 19:41] LABS: SARS-CoV-2 NAA Rapid Test DETECTED (NotDetected)
--- NOTE | 2020-12-29 19:41 | CT ---
CTA CHEST WITH CONTRAST: Date: 12/29/2020 Axial tomograms obtained following angio protocol with multiplanar reconstruction and 3D postprocessi ng. INDICATION: Cough and difficulty breathing. FINDINGS: Pulmonary arteries show adequate enhancement. There is no evidence of pulmonary embolus. Thoracic aor ta is unremarkable. No evidence of dissection. Review of the lung law shows patchy infiltrate in the peripheral left lung along the pleural surfa ce. This corresponds to an area of density seen on the recent chest film. This would be consistent wi th peripheral infiltrate. There are other patchy areas of focal somewhat nodular infiltrate seen in b oth lungs and seen in all lobes. COVID pneumonia should be considered. No effusion. Images through upper abdomen unremarkable. Osseous structures unremarkable. IMPRESSION: 1. No evidence of pulmonary embolus. 2. Patchy infiltrate in the peripheral left upper lobe along the chest wall corresponding to area of density seen on chest film. There are other scattered somewhat nodular areas of infiltrate seen thro ughout all lobes of both lungs. COVID pneumonia should be excluded. Short-term follow-up is recommend ed to ensure clearing of these nodular opacities. POS: RAMON
--- NOTE | 2020-12-29 19:55 | CT ---
CT head noncontrast HISTORY: Altered mental status. COMPARISON: 12/02/2010. FINDINGS: There is no evidence of acute intracranial hemorrhage or infarct. Evidence of widespread gl iosis throughout the periventricular white matter of each cerebral hemisphere. No mass effect or shift of midline structures. Abnormality of the right globe may represent chronic hemorrhage and/or postoperative changes. Visualized paranasal sinuses remain well aerated. IMPRESSION : Prominent chronic ischemic small vessel disease. No acute abnormalities are demonstrated.
[2020-12-29 20:03] LABS: Lactic Acid 1.8 mmol/L (0.5-2.2)
[2020-12-29] MEDS ORDERED: Azithromycin 500 MG VIAL ONE (20:55)
[2020-12-29] MEDS ORDERED: Ondansetron ODT 4 MG TAB PO PRN (20:58)
[2020-12-29] MEDS ORDERED: Acetaminophen 650 MG Suppository PR PRN (20:58)
[2020-12-29] MEDS ORDERED: Albuterol Sulfate 1.25 MG/3 ML NEB NEB PRN (21:05)
[2020-12-29] MEDS ORDERED: Enoxaparin Sodium 80 MG/0.8 ML SYRINGE ONE (21:07)
--- NOTE | 2020-12-29 21:27 | PDOC.HHP ---
Hospitalist HPI History of Present Illness: ADMISSION DATE: 12/29/2020 TIME OF ASSESSMENT: 1999 PRIMARY CARE PHYSICIAN: Nick de los santos CHIEF COMPLAINT: Nausea/ vomiting HPI: This is a 65-year-old woman who presents to the emergency department with persistent nausea vomiting that has been ongoing for the last 2 days. She reports having subsequent worsening weakness. Patient states she is developed generalized abdominal redness associated with constant retching. She completed dialysis yesterday and usually goes to dialysis on Tuesday and Fridays. Patient states she is under the care of Dr. Ponce. She was having nausea and vomiting during dialysis and was given antiemetics which helped control her symptoms. The patient denies experiencing any cough or difficulty breathing. Denies having any fevers, chills or sweats. She does report having diarrhea for the last 2 days as well and is unsure how many stools she has had per day. Denies noting any bright red blood per rectum or melena. States no one at home has been sick with GI symptoms. Reports making very little urine and recently has had some burning sensation with urination. No hematuria present. Denies any chest pain or palpitations. All other review systems are negative. ED COURSE: In the emergency department she had an EKG done which showed sinus tachycardia with a heart rate of 104. No ST changes or T wave abnormalities present. Laboratory studies done showed a white cell count of 2, hemoglobin 12.8, hematocrit 40.8, platelets 92, neutrophils 85.1%. D-dimer was elevated at 3.39. BUN 20, creatinine 3.82, GFR 12, glucose 268, lactic acid normal, total bilirubin 2.1, AST 1174, ALT 253, alk phos 266, CK 11, CK-MB 0.9, troponin 0 0.083, BNP 437, albumin 3.4, lipase 79. Due to the elevated D-dimer she had a CT angiogram of the chest done that showed no evidence of PE. There was a patchy infiltrate in the peripheral left upper lobe along the chest wall corresponding to an area of density seen on the chest x-ray. Other scattered somewhat nodular areas of infiltrate seen throughout all lobes of both lungs. Covid pneumonia acid should be excluded. Follow-up recommended to ensure clearing of nodular opacities. Chest x-ray done prior to the CT angiogram had demonstrated indeterminate density along the left lateral chest wall. CT brain was done for reported confusion and showed prominent chronic ischemic small vessel disease with no acute abnormalities present. She was negative for flu a and B but positive for Covid. She received full dose Lovenox 1 mg/kg due to the elevated D-dimer. He was also started on IV antibiotics with Rocephin and azithromycin as well as vancomycin. Also given 10 mg of Decadron IV. To the elevated troponin she received 324 mg of aspirin. Allergies/Adverse Reactions: Allergy/AdvReac Type Severity Reaction Status Date / Time lisinopril Allergy Verified 02/01/20 18:04 Home Medications: Medication Instructions Recorded Confirmed Type Atorvastatin Calcium [Lipitor] 40 mg PO HS 06/02/13 04/05/18 History Benzonatate [Tessalon] 200 mg PO TID PRN 06/02/13 04/05/18 History Liothyronine Sodium [Cytomel] 5 mcg PO DAILY 06/02/13 04/05/18 History Pantoprazole [Protonix] 40 mg PO DAILY 06/02/13 04/05/18 History Sertraline HCl [Zoloft] 100 mg PO QAM 06/02/13 04/05/18 History Acetaminophen [Tylenol] 325 mg PO PRN PRN 03/17/18 04/05/18 History B,C/Ferrous Fum/FA/D3/Zinc Ox 1 tablet PO DAILY 03/17/18 04/05/18 History [Prorenal Multivitamin Tablet] Carvedilol [Coreg] 25 mg PO BID 03/17/18 04/05/18 History Cholecalciferol (Vitamin D3) 1,000 unit PO BID 03/17/18 04/05/18 History [Vitamin D] Cinacalcet HCl [Sensipar] 60 mg PO QPM 03/17/18 04/05/18 History Felodipine [Felodipine ER] 10 mg PO QPM 03/17/18 04/05/18 History Insulin Detemir [Levemir Flextouch] 45 units SQ QPM 03/17/18 04/05/18 History Loratadine 10 mg PO DAILY 03/17/18 04/05/18 History Meclizine HCl 2 tablet PO QPM 03/17/18 04/05/18 History Sevelamer Carbonate [Renvela] 3 tablet PO BID 03/17/18 04/05/18 History Topiramate 50 mg PO BID 03/17/18 04/05/18 History buPROPion HCl [buPROPion HCl SR] 150 mg PO BID 03/17/18 04/05/18 History diphenhydrAMINE [Benadryl] 25 mg PO HS 03/17/18 04/05/18 History HYDROcodone Bit/APAP 5/325 [[place]] 1 - 2 tab PO Q4HR PRN 04/05/18 04/05/18 History Insulin Aspart [NovoLOG] 0 unit SQ TID PRN 04/05/18 04/05/18 History Ondansetron HCl [Zofran] 4 mg PO BID 04/05/18 04/05/18 History Promethazine [Phenergan] 25 mg PO BID PRN 04/05/18 04/05/18 History Sertraline HCl 0.5 tab PO QPM 04/05/18 04/05/18 History Valsartan [Diovan] 320 mg PO HS 04/05/18 04/05/18 History Ventolin HFA Inhaler 2 puff INH Q4HR PRN 04/05/18 04/05/18 History hydrALAZINE [Apresoline] 100 mg PO TID #30 tab 04/09/18 04/05/18 Rx Past History: PAST MEDICAL HISTORY: 1. Type 2 diabetes mellitus 2. Hypertension 3. End-stage renal disease on dialysis Tuesday, Tuesday, Tuesday 4. CHF 5. Diabetic retinopathy 6. History of colon cancer, resected PAST SURGICAL HISTORY: 1. Fistula to right upper extremity 2. Partial colon resection due to cancer 3. Appendectomy 4. Hysterectomy 5. Gastric sleeve in May 2020 SOCIAL HISTORY: The patient lives with her daughter. States she mobilizes independently at baseline. Denies any tobacco use, alcohol consumption or drug use. FAMILY HISTORY: Noncontributory Hospitalist Exam Vitals: VS: Temp 98.6, HR 109, BP 118/56, RR 16, O2 sat 96% on room air. Pain 0 out of 10. General Appearance: NAD, ill appearing General - other findings: laying at 45 degree angle, emesis on right side of face/neck. Missed bag Eye: PERRL, anicteric sclera ENT: normocephalic atraumatic, no oropharyngeal lesions Neck: supple, no lymphadenopathy Heart: RRR, no murmur, normal peripheral pulses Respiratory: CTAB, no wheezes, no rales, no ronchi, normal chest expansion Gastrointestinal: soft, non-distended, normal bowel sounds, no guarding, no rigidity, tender to palpation (mild diffuse discomfort with palpation) Extremities - other findings: pedal edema bilaterally Skin: normal turgor, no lesions, no rashes Neurological: cranial nerve grossly intact, normal sensation to touch Musculoskeletal: normal tone, normal strength, no muscle wasting Psychiatric: normal affect, normal behavior, A&O x 3 (able to follow commands and answer questions) Hospitalist Results Result Diagrams: 12/29/20 15:42 12/29/20 15:42 Lab results: Laboratory Last Values WBC 2.0 thou/uL (4.8-10.8) L 12/29/20 15: RBC 4.29 mill/uL (4.20-5.40) 12/29/20 15: Hgb 12.8 g/dL (12.0-16.0) 12/29/20: Hct 40.8 % (36.0-47.0) 12/29/20 15: MCV 95.1 fL (78.0-98.0) 12/29/20 15: MCH 29.7 pg (27.0-31.0) 12/29/20 15: MCHC 31.3 g/dL (32.0-36.0) L 12/29/20 15: RDW 16.2 % (11.5-14.5) H 12/29/20 15: Plt Count 92 thou/uL (130-400) L 12/29/20 15: MPV 11.1 fL (7.4-10.4) H 12/29/20 15: Neutrophils % 85.1 % (42.0-75.0) H 12/29/20 15: Neutrophils % (Manual) Not Reportable 12/29/20 15: Lymphocytes % 13.0 % (21.0-51.0) L 12/29/20 15: Monocytes % 1.6 % (0.0-10.0) 12/29/20 15: Eosinophils % 0.3 % (0.0-10.0) 12/29/20 15:42 Basophils % 0.0 % (0.0-1.0) 12/29/20 15:42 Neutrophils # 1.7 thou/uL (1.40-6.50) 12/29/20 15:42 Lymphocytes # 0.3 thou/uL (1.20-3.40) L 12/29/20 15:42 Monocytes # 0.0 thou/uL (0.11-0.59) L 12/29/20 15:42 Eosinophils # 0.0 thou/uL (0.0-0.7) 12/29/20 15:42 Basophils # 0.0 thou/uL (0.0-0.2) 12/29/20 15:42 D-Dimer 3.39 *mcg/mL (0.27-0.43) H 12/29/20 15:42 Sodium 138 mmol/L (136-145) 12/29/20 15:42 Potassium 4.8 mmol/L (3.5-5.1) 12/29/20 15:42 Chloride 93 mmol/L (98-107) L 12/29/20 15:42 Carbon Dioxide 30 mmol/L (23-31) 12/29/20 15:42 Anion Gap 20 mmol/L (10-20) 12/29/20 15:42 BUN 20 mg/dL (9.8-20.1) 12/29/20 15:42 Creatinine 3.82 mg/dL (0.6-1.1) H 12/29/20 15:42 Estimated GFR (MDRD) 12 12/29/20 15:42 Glucose 268 mg/dL (80-115) H 12/29/20 15:42 Lactic Acid 1.8 mmol/L (0.5-2.2) 12/29/20 19:27 Calcium 9.4 mg/dL (7.8-10.44) 12/29/20 15:42 Total Bilirubin 2.1 mg/dL (0.2-1.2) H 12/29/20 15:42 AST 1124 U/L (5-34) H 12/29/20 15:42 ALT 253 U/L (8-55) H 12/29/20 15:42 Alkaline Phosphatase 266 U/L (40-110) H 12/29/20 15:42 Creatine Kinase 11 U/L (29-168) L 12/29/20 15:42 CK-MB (CK-2) 0.9 ng/mL (0-6.6) 12/29/20 15:42 Troponin I 0.083 ng/mL (< 0.028) H 12/29/20 15:42 B-Natriuretic Peptide 437.0 pg/mL (0-100) H 12/29/20 15:42 Serum Total Protein 7.4 g/dL (5.8-8.1) 12/29/20 15:42 Albumin 3.4 g/dL (3.4-4.8) 12/29/20 15:42 Globulin 4.0 g/dL (2.4-3.5) H 12/29/20 15:42 Albumin/Globulin Ratio 0.9 g/dL (1.2-2.2) L 12/29/20 15:42 Lipase 79 U/L (8-78) H 12/29/20 15:42 Influenza A RNA INAAT Not Detected (NotDetected) 12/29/20 17:09 Influenza B RNA INAAT Not Detected (NotDetected) 12/29/20 17:09 SARS-CoV-2 Rap RNA(RT-PCR) DETECTED (NotDetected) A* 12/29/20 17:09 CT scan - head Status: report reviewed by va CT scan - chest Status: report reviewed by va Hospitalist H&P A/P (1) Nausea vomiting and diarrhea Code(s): R11.2 - NAUSEA WITH VOMITING, UNSPECIFIED; R19.7 - DIARRHEA, UNSPECIFIED Status: Acute Assessment and Plan: Suspect infectious gastroenteritis Continue anti-emetics Monitor lytes and replace as necessary Clear liquid diet, once swallow ability cleared Bedside screening for dysphagia, risk for aspiration Repeat CXR in AM Stool studies including c. diff (2) Generalized weakness Code(s): R53.1 - WEAKNESS Status: Acute Assessment and Plan: PT/OT consulted (3) COVID-19 virus detected Code(s): U07.1 - COVID-19 Status: Acute Assessment and Plan: Zinc and Vitamin C Albuterol inhaler PRN (no respiratory symptoms at this time) Monitor O2 sats Precautions ordered Day team to decide if Remdesivir indicated Hold further antibiotics and steroids (4) Thrombocytopenia Code(s): D69.6 - THROMBOCYTOPENIA, UNSPECIFIED Status: Acute Assessment and Plan: Monitor platelets Hold further anticoaguation, (CTA negative for PE) No s/s of bleeding at present (5) Abnormal LFTs (liver function tests) Code(s): R94.5 - ABNORMAL RESULTS OF LIVER FUNCTION STUDIES Status: Acute Assessment and Plan: Repeat LFTs in the AM Obtain Ammonia level RUQ US ordered (6) Elevated d-dimer Code(s): R79.89 - OTHER SPECIFIED ABNORMAL FINDINGS OF BLOOD CHEMISTRY Status: Acute Assessment and Plan: CTA negative for PE Given full dose Lovenox in ED Hold further anticoagulation (7) ESRD (end stage renal disease) on dialysis Code(s): N18.6 - END STAGE RENAL DISEASE; Z99.2 - DEPENDENCE ON RENAL DIALYSIS Status: Chronic Assessment and Plan: Nephrology consult ordered (Dialysis MWF) Monitor renal function Avoid nephrotoxic meds Will hold Vanc and lovenox as mentioned (8) Elevated troponin I level Code(s): R77.8 - OTHER SPECIFIED ABNORMALITIES OF PLASMA PROTEINS Status: Acute Assessment and Plan: Likely secondary to ESRD, remains without CP No previous to compare to Repeat Troponin No indication for cardiac work-up at this time (9) Diabetes mellitus type 2 in nonobese Code(s): E11.9 - TYPE 2 DIABETES MELLITUS WITHOUT COMPLICATIONS Status: Chronic Assessment and Plan: Monitor glucose ISS initiated (10) Hypertension Code(s): I10 - ESSENTIAL (PRIMARY) HYPERTENSION Status: Chronic Qualifiers: Hypertension type: essential hypertension Qualified Code(s): I10 - Essential (primary) hypertension Assessment and Plan: Monitor BP Resume home medications as appropriate once verified (11) Chronic CHF Code(s): I50.9 - HEART FAILURE, UNSPECIFIED Status: Chronic Plan: GI prophylaxis: Hold Famotidine due to thrombocytopenia DVT Prophylaxis with mechanical SCDs CODE STATUS FULL Case discussed with Dr. Turner who agrees with plan as above.
[2020-12-29] MEDS ORDERED: Dextrose 5% in Water 1,000 ML IV PRN (21:54)
[2020-12-29] MEDS ORDERED: HumaLOG 300 UNITS/3 ML VIAL SC PRN (21:54)
[2020-12-29] MEDS ORDERED: Dextrose 50% Abboject 50 ML SYRINGE SLOW IVP PRN (21:54)
[2020-12-29 22:15] VITALS: BMI 20.9
[2020-12-29 22:16] LABS: CRP (Inflammatory) 4.1 mg/dL (= or < 0.5); Magnesium 1.8 mg/dL (1.6-2.6)
[2020-12-29 22:50] LABS: CKMB 0.5 ng/mL (0-6.6)
[2020-12-30 02:49] LABS: CKMB 0.5 ng/mL (0-6.6)
[2020-12-30] MEDS ORDERED: Magnesium 2 GM/50 ML 2 GM in Premix Bag 1 BAG IVPB SCH (04:00)
[2020-12-30 05:21] LABS: Anion Gap 18 mmol/L (10-20); BUN (Urea Nitrogen) 27 mg/dL (9.8-20.1); Calc. Creatinine Clearance 14 mL/min (70-130); Calcium 8.5 mg/dL (7.8-10.44); Carbon Dioxide 28 mmol/L (23-31); Chloride 96 mmol/L (98-107); Glucose 222 mg/dL (80-115); Potassium 3.3 mmol/L (3.5-5.1); Sodium 139 mmol/L (136-145)
[2020-12-30] MEDS: HumaLOG 300 UNITS/3 ML VIAL SC PRN (05:29)
[2020-12-30 05:32] LABS: Lactic Acid 2.1 mmol/L (0.5-2.2)
[2020-12-30 05:37] LABS: ALT (SGPT) 222 U/L (8-55); AST (SGOT) 526 U/L (5-34); Albumin 2.8 g/dL (3.4-4.8); Alkaline Phosphatase 220 U/L (40-110); Bilirubin, Direct 0.5 mg/dL (0.1-0.3); Bilirubin, Total 0.7 mg/dL (0.2-1.2); Protein, Total 5.6 g/dL (5.8-8.1)
[2020-12-30 07:26] LABS: Hemoglobin 10.8 g/dL (12.0-16.0); Mean Corpuscular HGB CONC 31.6 g/dL (32.0-36.0); Mean Corpuscular Hemoglobin 29.3 pg (27.0-31.0); Mean Platelet Volume 11.5 fL (7.4-10.4); Platelet Count 85 thou/uL (130-400); RBC Distribution Width 16.2 % (11.5-14.5); Red Blood Cell (RBC) Count 3.67 mill/uL (4.20-5.40); White Blood Cell (WBC) Count 14.4 thou/uL (4.8-10.8)
--- NOTE | 2020-12-30 07:37 | ULT ---
US Gallbladder RUQ HISTORY: Right upper quadrant pain. COMPARISON: None. FINDINGS: Real-time imaging of the right upper quadrant shows a mildly distended sludge-filled gallbl adder. Gallbladder wall is in the 3 mm range. Borderline thickened for degree of distention. The technologist reports a negative ultrasound Ron sign. The common duct is 5 mm. Visualized liver par enchyma shows no focal findings. The right kidney measures 7.9 cm in size. There is cortical thinning and increased echogenicity to th e kidney. Small hypodensity measuring the 1 cm range is difficult to characterize but most likely a cyst. The pancreas is obscured. IMPRESSION: Large amount of sludge within the gallbladder which is mildly distended, no definitive st ones are identified.
--- NOTE | 2020-12-30 07:53 | RAD ---
XR Chest 1 View Portable HISTORY: Covid pneumonia COMPARISON: 12/29/2020 study. FINDINGS: Heart size is enlarged. The pleural-based infiltrate in the left midlung field within the l eft upper lobe is stable. Minimal groundglass changes are seen in the lung bases. IMPRESSION: Stable exam.
[2020-12-30] MEDS: Ascorbic Acid 500 mg Chewable Tablet PO SCH (08:06)
[2020-12-30] MEDS: Zinc Sulfate 220 MG CAP PO SCH (08:06)
[2020-12-30 08:16] LABS: Band 52 % (5-11); Lymphocytes 2 % (21-51); MDiff Complete? YES; Metamyelocyte 2 % (0-0); Monocytes 3 % (0-10); Neutrophil 39 % (42-75); Platelet Morphology Comment Appears Decreased; Polychromasia SLIGHT = 2-3 cells (100X) (0-2/hpf); Reactive Lymphocytes 2 % (0-10); Reflex for Review?? NO; Vacuoles SLIGHT
[2020-12-30] MEDS: Acetaminophen 325 MG TAB PO PRN ×2 (13:11→21:08)
--- NOTE | 2020-12-30 16:00 | PDOC.HOSPP ---
- Subjective Encounter Date: 12/30/20 Encounter Time: 12:30 Subjective: F/u: nausea THe patient states she hasn't vomited in the past two days. She denied abdominal pain but did have some dysuria. Her last dialysis was on Tuesday She denies fevers, chills, cough or SOB. She lives with her daughter. She did not know she was COVID + prior to this - Objective Vital Signs & Weight: Vital Signs (12 hours) Temp Pulse Resp BP Pulse Ox 12/30/20 11:28 97.9 F 88 16 139/73 97 12/30/20 08:03 98.0 F 86 16 132/72 96 12/30/20 08:00 96 12/30/20 04:52 97.6 F 85 18 119/70 100 Weight Admit Weight 149 lb 14.629 oz Weight 149 lb 14.629 oz Result Diagrams: 12/30/20 04:53 12/30/20 04:53 Additional Labs: Accuchecks 12/30/20 12/30/20 12/29/20 11:29 04:07 22:27 POC Glucose 153 H 198 H 337 H Hospitalist ROS - Review of Systems Constitutional: denies: fever, chills - Medication Medications: Active Medications Generic Name Dose Route Start Last Admin Trade Name Freq PRN Reason Stop Dose Admin Acetaminophen 650 mg 12/29/20 20:58 12/30/20 13:11 Acetaminophen 325 Mg Tab PO 650 mg Q4H PRN Administration Headache/Fever/Mild Pain (1-3) Ascorbic Acid 1,000 mg 12/30/20 09:00 12/30/20 08:06 Ascorbic Acid 500 Mg Chewable Tablet PO 1,000 mg DAILY MAXIMILIANO Administration Insulin Human Lispro 0 units 12/29/20 21:54 12/30/20 05:29 Humalog 300 Units/3 Ml Vial SC 2 unit .MILD SLIDING SCALE PRN Administration Mild Correctional Scale Insulin Human Lispro 0 units 12/29/20 21:54 12/29/20 22:57 Humalog 300 Units/3 Ml Vial SC 4 unit .BEDTIME SLIDING SC PRN Administration Bedtime Correctional Scale Zinc Sulfate 220 mg 12/30/20 09:00 12/30/20 08:06 Zinc Sulfate 220 Mg Cap PO 220 mg DAILY MAXIMILIANO Administration Hospitalist Exam Vitals: Vital Signs (12 hours) Temp Pulse Resp BP Pulse Ox 12/30/20 11:28 97.9 F 88 16 139/73 97 12/30/20 08:03 98.0 F 86 16 132/72 96 12/30/20 08:00 96 12/30/20 04:52 97.6 F 85 18 119/70 100 Weight Admit Weight 149 lb 14.629 oz Weight 149 lb 14.629 oz General Appearance: NAD, awake alert Eye: PERRL, anicteric sclera ENT: normocephalic atraumatic, no oropharyngeal lesions Neck: no JVD Heart: RRR, no murmur, no gallops, no rubs Respiratory: CTAB, no wheezes, no rales, no ronchi Gastrointestinal: soft, non-tender, non-distended, normal bowel sounds Extremities: no cyanosis, no clubbing, no edema Skin: normal turgor, no lesions, no rashes Neurological: cranial nerve grossly intact, normal sensation to touch, no weakness Musculoskeletal: normal tone, normal strength, no muscle wasting Psychiatric: A&O x 3 Hosp A/P - Plan Abd US: large GB sludge, no stones CTA chest: patchy opacity in peripheral left upper lobe . Nodular infiltrates through all areas of lungs CT brain: no acute disease This is a 65 year old female who presented with intractable nausea, vomiting and dysuria, fevers and chills, found to be septic Sepsis secondary to E coli bacteremia - received vancomycin, ceftriaxone, azithromycin in the ER . - blood cultures grew E coli, will continue ceftriaxone. Check urine culture. Chest Xray shows bilateral pneumonia, likely from COVID . Add doxycycline - patient had loose stool, C diff was ordered on admission as well Hypokalemia - potassium 3.3, replace with 40 meq of potassium COVID pneumonia - currently a symptomatic with no respiratory symptoms. Will hold off on steroids - will add doxycycline Transaminitis - LFT > 1000, but trending down to 500. Will monitor. Abd US showed GB sludge, but no stones ESRD - nephrology consulted, plan for dialysis tomorrow Leukocytosis - WBC down to 14.4, continue antibiotics mentioned above Anemia - Hb 10, stable, will monitor
[2020-12-30] MEDS ORDERED: Potassium Chloride 20 MEQ TAB PO SCH (16:15)
[2020-12-30] MEDS ORDERED: Doxycycline 100 MG CAP PO SCH (17:00)
[2020-12-30] MEDS: cefTRIAXone\\ROCEPHIN 1 GM in Sodium Chloride 0.9% 100 ML IVPB SCH (17:19)
[2020-12-30] MEDS: Doxycycline 100 MG CAP PO SCH (21:08)
[2020-12-30] MEDS: Ondansetron PF 4 MG/2 ML Vial IVP PRN (21:09)
--- NOTE | 2020-12-31 06:37 | CON ---
DATE OF CONSULTATION: REQUESTING PHYSICIAN: Dr. Tatianna Burton. REASON FOR CONSULTATION: Need for maintenance hemodialysis. IMPRESSION: 1. End-stage renal disease, on hemodialysis, Tuesday, Tuesday, Tuesday. Last dialyzed on Tuesday. 2. COVID pneumonitis. 3. Nausea and vomiting. PLAN: 1. Patient to be dialyzed tomorrow in accordance with her schedule. 2. No emergent indication for renal replacement therapy (hemodialysis). 3. Further management to be dependent on the clinical course. HISTORY OF PRESENT ILLNESS: History is that of a 65-year-old female patient with end-stage renal disease, hemodialysis dependent, who presented here with nausea and vomiting, and was diagnosed with COVID pneumonitis. The need for maintenance hemodialysis necessitated this Renal consultation. PAST MEDICAL HISTORY: Significant for end-stage renal disease, hemodialysis dependent; status post gastric sleeve; hypertension. PHYSICAL EXAMINATION: GENERAL: The patient was found not to be in any obvious distress. Hemodynamically stable. HEENT: Unremarkable. CARDIOVASCULAR SYSTEM: First and second heart sounds were heard. RESPIRATORY SYSTEM: Clear to auscultation. DIGESTIVE SYSTEM: Revealed a benign abdomen. Positive bowel sounds. EXTREMITIES: No peripheral edema. SKIN: No new gross rash. LYMPHATICS: No peripheral lymphadenopathy. SUMMARY: A 65-year-old female patient with end-stage renal disease, hemodialysis dependent Job ID: [id number]
[2020-12-31 07:16] LABS: Hemoglobin 11.5 g/dL (12.0-16.0); Mean Corpuscular HGB CONC 31.4 g/dL (32.0-36.0); Mean Corpuscular Hemoglobin 29.5 pg (27.0-31.0); Mean Corpuscular Volume 93.9 fL (78.0-98.0); Mean Platelet Volume 11.7 fL (7.4-10.4); Platelet Count 83 thou/uL (130-400); Red Blood Cell (RBC) Count 3.89 mill/uL (4.20-5.40); White Blood Cell (WBC) Count 10.1 thou/uL (4.8-10.8)
[2020-12-31 07:19] LABS: Anion Gap 19 mmol/L (10-20); BUN (Urea Nitrogen) 38 mg/dL (9.8-20.1); Calc. Creatinine Clearance 11 mL/min (70-130); Carbon Dioxide 27 mmol/L (23-31); Chloride 94 mmol/L (98-107); Glucose 110 mg/dL (80-115); Potassium 3.6 mmol/L (3.5-5.1); Sodium 136 mmol/L (136-145)
[2020-12-31] MEDS: Ascorbic Acid 500 mg Chewable Tablet PO SCH (08:44)
[2020-12-31] MEDS: Zinc Sulfate 220 MG CAP PO SCH (08:45)
[2020-12-31] MEDS: Doxycycline 100 MG CAP PO SCH ×2 (08:45→20:02)
[2020-12-31] MEDS: Ondansetron PF 4 MG/2 ML Vial IVP PRN (09:00)
[2020-12-31] MEDS: Promethazine HCl 6.25 MG/5 ML Syrup PO PRN (14:00)
[2020-12-31 15:24] LABS: HBSAB Concentration Less than 8.00 mIU/mL; HBSAg Index 0.21 S/CO (0-0.99); Hep B Core Total Ab Non-Reactive (NonReactive); Hep B Core Total Index 0.05 S/CO (0-0.79); Hep B Surf AB Non-Reactive (NonReactive); Hep B Surf Ag Non-Reactive S/CO (NonReactive); Hep C IgG Ab Non-Reactive (NonReactive); Hep C Index 0.07 S/CO (0-0.79)
--- NOTE | 2020-12-31 15:33 | PDOC.HOSPP ---
- Subjective Encounter Date: 12/31/20 Encounter Time: 14:00 Subjective: F/u: sepsis . The patient vomited twice this morning. She did well with diet yesterday but vomiting reoccurred. She has not had dialysis yet, she states it usually occurs on her days of dialysis. Phenergan helps at home. No fevers or abdominal pain today She did not want to go back to clear liquid diet - Objective Vital Signs & Weight: Vital Signs (12 hours) Temp Pulse Resp BP Pulse Ox 12/31/20 07:45 98.4 F 97 20 176/82 H 96 12/31/20 06:16 97.6 F 83 16 170/80 H 93 L Weight Admit Weight 149 lb 14.629 oz Weight 149 lb 14.629 oz Result Diagrams: 12/31/20 06:36 12/31/20 06:36 Additional Labs: Accuchecks 12/31/20 12/30/20 12/30/20 10:38 21:16 16:14 POC Glucose 107 H 194 H 174 H Hospitalist ROS - Review of Systems Constitutional: denies: fever, chills - Medication Medications: Active Medications Generic Name Dose Route Start Last Admin Trade Name Freq PRN Reason Stop Dose Admin Acetaminophen 650 mg 12/29/20 20:58 12/30/20 21:08 Acetaminophen 325 Mg Tab PO 650 mg Q4H PRN Administration Headache/Fever/Mild Pain (1-3) Ascorbic Acid 1,000 mg 12/30/20 09:00 12/31/20 08:44 Ascorbic Acid 500 Mg Chewable Tablet PO 1,000 mg DAILY MAXIMILIANO Administration Doxycycline Hyclate 100 mg 12/30/20 21:00 12/31/20 08:45 Doxycycline 100 Mg Cap PO 100 mg BID MAXIMILIANO Administration Ceftriaxone Sodium 1 gm/ 100 mls @ 200 mls/hr 12/30/20 18:00 12/30/20 17:19 Sodium Chloride IVPB 100 mls 1800 MAXIMILIANO Administration Insulin Human Lispro 0 units 12/29/20 21:54 12/30/20 05:29 Humalog 300 Units/3 Ml Vial SC 2 unit .MILD SLIDING SCALE PRN Administration Mild Correctional Scale Insulin Human Lispro 0 units 12/29/20 21:54 12/29/20 22:57 Humalog 300 Units/3 Ml Vial SC 4 unit .BEDTIME SLIDING SC PRN Administration Bedtime Correctional Scale Ondansetron HCl 4 mg 12/29/20 20:58 12/30/20 21:09 Ondansetron Pf 4 Mg/2 Ml Vial IVP 4 mg Q6H PRN Administration Nausea/Vomiting Zinc Sulfate 220 mg 12/30/20 09:00 12/31/20 08:45 Zinc Sulfate 220 Mg Cap PO 220 mg DAILY MAXIMILIANO Administration Hospitalist Exam Vitals: Vital Signs (12 hours) Temp Pulse Resp BP Pulse Ox 12/31/20 07:45 98.4 F 97 20 176/82 H 96 12/31/20 06:16 97.6 F 83 16 170/80 H 93 L Weight Admit Weight 149 lb 14.629 oz Weight 149 lb 14.629 oz General Appearance: NAD, awake alert Eye: PERRL, anicteric sclera ENT: normocephalic atraumatic, no oropharyngeal lesions Neck: no JVD Heart: RRR, no murmur, no gallops, no rubs Respiratory: CTAB, no wheezes, no rales, no ronchi Gastrointestinal: soft, non-tender, non-distended, normal bowel sounds, no bruit Extremities: no cyanosis, no clubbing, no edema Skin: normal turgor, no lesions, no rashes Neurological: cranial nerve grossly intact, normal sensation to touch, no weakness Musculoskeletal: normal tone, normal strength, no muscle wasting Psychiatric: normal affect, normal behavior, A&O x 3 Hosp A/P - Plan Abd US: large GB sludge, no stones CTA chest: patchy opacity in peripheral left upper lobe . Nodular infiltrates through all areas of lungs CT brain: no acute disease This is a 65 year old female who presented with intractable nausea, vomiting and dysuria, fevers and chills, found to be septic Sepsis secondary to E coli bacteremia - received vancomycin, ceftriaxone, azithromycin in the ER . Continue ceftriaxone for E coli bacteremia, sensitivities are still pending . Ua pending . Chest Xray showed bilateral pneumonia, doxycycline was added 12/30 Hypokalemia - resolved COVID pneumonia - currently a symptomatic with no respiratory symptoms. Will hold off on steroids. Continue ceftriaxone and doxycycline Transaminitis - LFT > 1000, but trending down to 500. Abd US showed GB sludge, but no stones. Repeat LFTS tomorrow ESRD - nephrology consulted, plan for dialysis today Leukocytosis - WBC down to 10. Anemia - Hb 10, stable, will monitor
[2020-12-31] MEDS: cefTRIAXone\\ROCEPHIN 1 GM in Sodium Chloride 0.9% 100 ML IVPB SCH (18:05)
--- NOTE | 2020-12-31 19:58 | PRG ---
DATE OF SERVICE: 12/31/2020 SUBJECTIVE: The patient noted with the following vital signs. OBJECTIVE: VITAL SIGNS: Temperature 98.4, pulse 97, respiratory rate of 20, O2 saturation of , and blood pressure . GENERAL: The patient had nausea and vomiting today. HEENT: Unremarkable. CARDIOVASCULAR SYSTEM: First and second heart sounds were heard. RESPIRATORY SYSTEM: Clear to auscultation. DIGESTIVE SYSTEM: Revealed a benign abdomen. Positive bowel sounds. EXTREMITIES: No peripheral edema. SKIN: No new gross rash. LYMPHATICS: No peripheral lymphadenopathy. IMPRESSION: 1. End-stage renal disease, on hemodialysis. 2. Hypertension, suboptimally controlled. 3. Nausea and vomiting, query cause. PLAN: 1. Patient to be dialyzed today with ultrafiltration as tolerated by hemodynamics. 2. Further management to be dependent on the clinical course and further recommendation from the primary service. Job ID: [id number]
[2021-01-01 06:10] LABS: ALT (SGPT) 83 U/L (8-55); AST (SGOT) 83 U/L (5-34); Albumin 2.9 g/dL (3.4-4.8); Alkaline Phosphatase 192 U/L (40-110); Anion Gap 18 mmol/L (10-20); BUN (Urea Nitrogen) 20 mg/dL (9.8-20.1); Bilirubin, Total 0.5 mg/dL (0.2-1.2); Calc. Creatinine Clearance 16 mL/min (70-130); Calcium 8.7 mg/dL (7.8-10.44); Carbon Dioxide 26 mmol/L (23-31); Chloride 97 mmol/L (98-107); Glucose 93 mg/dL (80-115); Potassium 3.9 mmol/L (3.5-5.1); Protein, Total 5.9 g/dL (5.8-8.1); Sodium 137 mmol/L (136-145)
[2021-01-01 06:12] LABS: #Lymphocytes 0.8 thou/uL (1.20-3.40); #Monocytes 0.2 thou/uL (0.11-0.59); #Neutrophils 6.6 thou/uL (1.40-6.50); %Basophils 0.2 % (0.0-1.0); %Eosinophils 0.5 % (0.0-10.0); %Lymphocytes 10.9 % (21.0-51.0); %Monocytes 2.6 % (0.0-10.0); %Neutrophils 85.8 % (42.0-75.0); Hemoglobin 11.2 g/dL (12.0-16.0); Mean Corpuscular HGB CONC 33.3 g/dL (32.0-36.0); Mean Corpuscular Hemoglobin 31.2 pg (27.0-31.0); Mean Corpuscular Volume 93.8 fL (78.0-98.0); Mean Platelet Volume 11.8 fL (7.4-10.4); Platelet Count 79 thou/uL (130-400); RBC Distribution Width 15.9 % (11.5-14.5); Red Blood Cell (RBC) Count 3.59 mill/uL (4.20-5.40); White Blood Cell (WBC) Count 7.7 thou/uL (4.8-10.8)
[2021-01-01] MEDS: Zinc Sulfate 220 MG CAP PO SCH (08:07)
[2021-01-01] MEDS: Ascorbic Acid 500 mg Chewable Tablet PO SCH (08:07)
[2021-01-01] MEDS: Ondansetron PF 4 MG/2 ML Vial IVP PRN (08:07)
[2021-01-01] MEDS: Acetaminophen 325 MG TAB PO PRN ×2 (08:07→20:28)
[2021-01-01] MEDS: Doxycycline 100 MG CAP PO SCH ×2 (08:08→20:28)
[2021-01-01] MEDS ORDERED: Amlodipine 5 MG TAB PO SCH (11:00)
[2021-01-01] MEDS: Promethazine HCl 6.25 MG/5 ML Syrup PO PRN (11:31)
[2021-01-01] MEDS ORDERED: Pantoprazole 40 MG VIAL IVP SCH (13:30)
[2021-01-01 13:51] LABS: Hemoglobin 11.4 g/dL (12.0-16.0); Mean Corpuscular HGB CONC 31.3 g/dL (32.0-36.0); Mean Corpuscular Volume 92.7 fL (78.0-98.0); Mean Platelet Volume 11.7 fL (7.4-10.4); Platelet Count 91 thou/uL (130-400); RBC Distribution Width 16.1 % (11.5-14.5); Red Blood Cell (RBC) Count 3.95 mill/uL (4.20-5.40); White Blood Cell (WBC) Count 6.7 thou/uL (4.8-10.8)
[2021-01-01 14:12] LABS: Bacteria/HPF None Seen HPF (None Seen); Bilirubin Negative (Negative); Blood, Urine Negative (Negative); Clarity Clear (Clear); Glucose, Urine (Dipstick) 70 mg/dL (Negative); Ketone, Urine Negative (Negative); Leukocyte 250 Leu/uL (Negative); Nitrite Negative (Negative); Protein, Urine (Dipstick) 100 mg/dL (Neg-Trace); Specific Gravity, Urine 1.013 (1.002-1.036); Squamous Epithelial 0-3 HPF (0-3); Urobilinogen Normal mg/dL (Less than 2); WBC/HPF 21-50 HPF (0-3); pH, Urine 7.5 (5.0-9.0)
[2021-01-01 14:15] LABS: Urine Culture Reflex Yes Yes
--- NOTE | 2021-01-01 14:28 | PDOC.HOSPP ---
- Subjective Encounter Date: 01/01/21 Encounter Time: 07:00 Subjective: F/u: sepsis The patient states she has no appetite, didn't eat much breakfast much. She denies abdominal pain or nausea. She has had no fevers Nursing told me the patient had a black stool this morning. FOBT + . Straight cath UA obtained - Objective Vital Signs & Weight: Vital Signs (12 hours) Temp Pulse Resp BP Pulse Ox 01/01/21 11:31 93 01/01/21 08:00 99.2 F 93 20 187/74 H 98 01/01/21 04:50 99.9 F H 90 19 179/78 H 97 Weight Admit Weight 149 lb 14.629 oz Weight 149 lb 14.629 oz I&O: 12/31/20 01/01/21 01/02/21 06:59 06:59 06:59 Intake Total 700 Output Total 100 Balance 600 Result Diagrams: 01/01/21 13:40 01/01/21 05:46 Additional Labs: Accuchecks 01/01/21 01/01/21 12/31/20 10:58 06:23 21:06 POC Glucose 113 H 83 107 H 12/31/20 06:14 POC Glucose 97 Hospitalist ROS - Review of Systems Constitutional: denies: fever, chills - Medication Medications: Active Medications Generic Name Dose Route Start Last Admin Trade Name Freq PRN Reason Stop Dose Admin Acetaminophen 650 mg 12/29/20 20:58 01/01/21 08:07 Acetaminophen 325 Mg Tab PO 650 mg Q4H PRN Administration Headache/Fever/Mild Pain (1-3) Ascorbic Acid 1,000 mg 12/30/20 09:00 01/01/21 08:07 Ascorbic Acid 500 Mg Chewable Tablet PO 1,000 mg DAILY MAXIMILIANO Administration Doxycycline Hyclate 100 mg 12/30/20 21:00 01/01/21 08:08 Doxycycline 100 Mg Cap PO 100 mg BID MAXIMILIANO Administration Ceftriaxone Sodium 1 gm/ 100 mls @ 200 mls/hr 12/30/20 18:00 12/31/20 18:05 Sodium Chloride IVPB 100 mls 1800 MAXIMILIANO Administration Insulin Human Lispro 0 units 12/29/20 21:54 12/30/20 05:29 Humalog 300 Units/3 Ml Vial SC 2 unit .MILD SLIDING SCALE PRN Administration Mild Correctional Scale Insulin Human Lispro 0 units 12/29/20 21:54 12/29/20 22:57 Humalog 300 Units/3 Ml Vial SC 4 unit .BEDTIME SLIDING SC PRN Administration Bedtime Correctional Scale Ondansetron HCl 4 mg 12/29/20 20:58 01/01/21 08:07 Ondansetron Pf 4 Mg/2 Ml Vial IVP 4 mg Q6H PRN Administration Nausea/Vomiting Pantoprazole Sodium 40 mg 01/01/21 13:30 01/01/21 13:45 Pantoprazole 40 Mg Vial IVP 01/01/21 16:00 40 mg NOW MAXIMILIANO Administration Promethazine HCl 12.5 mg 12/31/20 13:56 01/01/21 11:31 Promethazine Hcl 6.25 Mg/5 Ml Syrup PO 12.5 mg Q6H PRN Administration Nausea/Vomiting Zinc Sulfate 220 mg 12/30/20 09:00 01/01/21 08:07 Zinc Sulfate 220 Mg Cap PO 220 mg DAILY MAXIMILIANO Administration Hospitalist Exam Vitals: Vital Signs (12 hours) Temp Pulse Resp BP Pulse Ox 01/01/21 11:31 93 01/01/21 08:00 99.2 F 93 20 187/74 H 98 01/01/21 04:50 99.9 F H 90 19 179/78 H 97 Weight Admit Weight 149 lb 14.629 oz Weight 149 lb 14.629 oz General Appearance: NAD, awake alert Eye: PERRL, anicteric sclera ENT: normocephalic atraumatic, no oropharyngeal lesions Neck: no JVD Heart: RRR, no murmur, no gallops, no rubs Respiratory: CTAB, no wheezes, no rales, no ronchi Gastrointestinal: soft, non-tender, non-distended, normal bowel sounds Extremities: no cyanosis, no clubbing, no edema Skin: normal turgor, no lesions, no rashes Hosp A/P - Plan Abd US: large GB sludge, no stones CTA chest: patchy opacity in peripheral left upper lobe . Nodular infiltrates through all areas of lungs CT brain: no acute disease This is a 65 year old female who presented with intractable nausea, vomiting and dysuria, fevers and chills, found to be septic Sepsis secondary to E coli bacteremia - received vancomycin, ceftriaxone, azithromycin in the ER . On ceftriaxone for E coli bacteremia day 2, will switch to oral levaquin Possible GI bleed - had bloody stool. FOBT +. Hb 11. Will consult GI Transaminitis- improving - LFT improved to 83/83/192 . Will monitor Hypokalemia - resolved COVID pneumonia - currently a symptomatic with no respiratory symptoms. Will hold off on steroids. Continue ceftriaxone and doxycycline ESRD - nephrology consulted, plan for dialysis today Leukocytosis -resolved Anemia - Hb 10, stable, will monitor
[2021-01-01] MEDS ORDERED: hydrALAZINE 20 MG/ML VIAL SLOW IVP SCH (20:15)
[2021-01-01] MEDS: Sodium Chloride 0.9% (PF) 10 ML VIAL FS PRN (20:27)
[2021-01-01] MEDS: Pantoprazole 40 MG VIAL IVP SCH (20:28)
--- NOTE | 2021-01-02 07:18 | CON ---
DATE OF CONSULTATION: 01/01/2021 REASON FOR CONSULTATION: Dark stool today. HISTORY OF PRESENT ILLNESS: Ms. Mariscal is a 65-year-old female, who was admitted to the hospital on the secondary to reported nausea and vomiting for a couple of days with weakness. Apparently, she had dialysis the day prior to admission, was having nausea and vomiting at dialysis control her symptoms somewhat. She apparently had diarrhea as well, but no bright red blood or melena. She came to the emergency room with a pulse of 118 and a blood pressure of 190/90. She says she just came with more weakness. She also had been recently diagnosed with COVID. Therefore, she was admitted to the hospital. On admission, she had a white count of 2, which was 14 the next day; platelets of 92, which was 85 the next day; and a white count of 12.8, which was 10.8 the next day. Her hemoglobin has remained stable and is 11.4 today with white count of 6 and platelets of 91,000. In the emergency room, she had a CTA which was negative. She had an ultrasound showing biliary sludge, no stones. She had a COVID test positive. She was admitted to the hospital with a diagnosis of possible infectious gastritis, general weakness, COVID-19, thrombocytopenia. I was asked to see her today as she had some dark stool that was Hemoccult positive. In talking with the patient, she has had upper and lower endoscopies by Dr. Vic Mata at [facility]. Three years ago was her last endoscopy and showed a few polyps removed from both the stomach and the colon. She reports she was set up for either last week or this next week to have that again with him, but then she got admitted to the hospital. She denies any knowledge of previously abnormal LFTs or low platelet counts. PAST MEDICAL HISTORY: Notable for end-stage renal disease, is unclear of the reason. She has had hypertension. She denies history of diabetes, but her reports indicate she has diabetes and diabetic retinopathy. She is mostly blind, she admits that. Also, it is noted that she has had a prior history of colon cancer, treated with surgery. She neglected to tell me that on our initial interview in talking about surgery. She has also had a gastric sleeve surgery in 05/2020, breast surgery, carpal tunnel surgery. SOCIAL HISTORY: She does not use drugs or drink. She lives at [facility]. ALLERGIES: LISINOPRIL, HYDROCODONE, CODEINE. MEDICATIONS: Presently, 1. Tylenol. 2. Albuterol. 3. Ascorbic acid. 4. Vibramycin. 5. Insulin sliding scale. 6. Levaquin. 7. Protonix 40 mg IV q.12 started today. ASSESSMENT: Admission with nausea, vomiting, found to be COVID positive recently, temperature 99 with stable vital signs now, initially tachycardic on admission with dehydration from vomiting and diarrhea. She is found to have dark stool with Hemoccult positive, hemoglobin stable at 10.1. She was on no ulcer prophylaxis until today. RECOMMENDATIONS: I would continue her on PPI q.12 hours and monitor her. We would only intervene endoscopically if she was having significant hemorrhage as she is COVID positive at this time. There is significant risk to her to end up on a ventilator if we have to sedate her for anesthesia. If she does well with this, she can follow up with her clinical information systems director in the outpatient setting next week as she has scheduled endoscopies for colonoscopy and EGD there. We will follow from a distance. If there is any acute hemorrhage, please do not hesitate to call me. Job ID: [id number]
[2021-01-02] MEDS: Acetaminophen 325 MG TAB PO PRN (12:00)
[2021-01-02] MEDS: Doxycycline 100 MG CAP PO SCH ×2 (12:00→19:43)
[2021-01-02] MEDS: Pantoprazole 40 MG VIAL IVP SCH ×2 (12:00→19:44)
[2021-01-02] MEDS: Zinc Sulfate 220 MG CAP PO SCH (12:01)
[2021-01-02] MEDS: Ascorbic Acid 500 mg Chewable Tablet PO SCH (12:01)
[2021-01-02] MEDS: Amlodipine 5 MG TAB PO SCH (12:01)
[2021-01-02] MEDS: Promethazine HCl 6.25 MG/5 ML Syrup PO PRN (12:20)
--- NOTE | 2021-01-02 16:21 | PDOC.HOSPP ---
- Subjective Encounter Date: 01/02/21 Encounter Time: 11:00 Subjective: F/u: GI bleed, vomiting, sepsis PT states she vomited twice before dialysis. after dialysis she tolerated her diet and had no vomiting. Per nurse, she had a bloody stool after dialysis, but it is slowing down compared to yesterday No fevers overnight - Objective Vital Signs & Weight: Vital Signs (12 hours) Temp Pulse Resp BP Pulse Ox 01/02/21 12:01 51 L 01/02/21 12:00 99.2 F 73 18 106/74 98 01/02/21 08:00 92 L 01/02/21 07:14 99.6 F 51 L 19 154/93 H 92 L Weight Admit Weight 149 lb 14.629 oz Weight 149 lb 14.629 oz I&O: 01/01/21 01/02/21 01/03/21 06:59 06:59 06:59 Intake Total 700 Output Total 100 Balance 600 Result Diagrams: 01/01/21 13:40 01/01/21 05:46 Additional Labs: Accuchecks 01/01/21 01/01/21 19:34 15:42 POC Glucose 110 H 139 H Hospitalist ROS - Review of Systems Constitutional: denies: fever, chills - Medication Medications: Active Medications Generic Name Dose Route Start Last Admin Trade Name Freq PRN Reason Stop Dose Admin Acetaminophen 650 mg 12/29/20 20:58 01/02/21 12:00 Acetaminophen 325 Mg Tab PO 650 mg Q4H PRN Administration Headache/Fever/Mild Pain (1-3) Amlodipine Besylate 5 mg 01/02/21 09:00 01/02/21 12:01 Amlodipine 5 Mg Tab PO Not Given DAILY MAXIMILIANO Ascorbic Acid 1,000 mg 12/30/20 09:00 01/02/21 12:01 Ascorbic Acid 500 Mg Chewable Tablet PO 1,000 mg DAILY MAXIMILIANO Administration Doxycycline Hyclate 100 mg 12/30/20 21:00 01/02/21 12:00 Doxycycline 100 Mg Cap PO 100 mg BID MAXIMILIANO Administration Insulin Human Lispro 0 units 12/29/20 21:54 12/30/20 05:29 Humalog 300 Units/3 Ml Vial SC 2 unit .MILD SLIDING SCALE PRN Administration Mild Correctional Scale Insulin Human Lispro 0 units 12/29/20 21:54 12/29/20 22:57 Humalog 300 Units/3 Ml Vial SC 4 unit .BEDTIME SLIDING SC PRN Administration Bedtime Correctional Scale Levofloxacin 750 mg 01/02/21 06:00 01/02/21 06:04 Levofloxacin 750 Mg Tab PO 750 mg 0600 MAXIMILIANO Administration Ondansetron HCl 4 mg 12/29/20 20:58 01/01/21 08:07 Ondansetron Pf 4 Mg/2 Ml Vial IVP 4 mg Q6H PRN Administration Nausea/Vomiting Pantoprazole Sodium 40 mg 01/01/21 21:00 01/02/21 12:00 Pantoprazole 40 Mg Vial IVP 40 mg Q12HR MAXIMILIANO Administration Promethazine HCl 12.5 mg 12/31/20 13:56 01/02/21 12:20 Promethazine Hcl 6.25 Mg/5 Ml Syrup PO 12.5 mg Q6H PRN Administration Nausea/Vomiting Sodium Chloride 10 ml 01/01/21 13:30 01/01/21 20:27 Sodium Chloride 0.9% (Pf) 10 Ml Vial FS 10 ml PRN PRN Administration RECONSTITUTION Zinc Sulfate 220 mg 12/30/20 09:00 01/02/21 12:01 Zinc Sulfate 220 Mg Cap PO 220 mg DAILY MAXIMILIANO Administration Hospitalist Exam Vitals: Vital Signs (12 hours) Temp Pulse Resp BP Pulse Ox 01/02/21 12:01 51 L 01/02/21 12:00 99.2 F 73 18 106/74 98 01/02/21 08:00 92 L 01/02/21 07:14 99.6 F 51 L 19 154/93 H 92 L Weight Admit Weight 149 lb 14.629 oz Weight 149 lb 14.629 oz General Appearance: NAD, awake alert Eye: PERRL, anicteric sclera ENT: normocephalic atraumatic, no oropharyngeal lesions Neck: no JVD Heart: RRR, no murmur, no gallops, no rubs Respiratory: CTAB, no wheezes, no rales, no ronchi Gastrointestinal: soft, non-tender, non-distended, normal bowel sounds, no palpable masses, no hepatomegaly, no splenomegaly, no bruit Extremities: no cyanosis, no clubbing, no edema Skin: normal turgor, no lesions, no rashes Neurological: cranial nerve grossly intact, normal sensation to touch, no weakness Hosp A/P - Plan Abd US: large GB sludge, no stones CTA chest: patchy opacity in peripheral left upper lobe . Nodular infiltrates through all areas of lungs CT brain: no acute disease This is a 65 year old female who presented with intractable nausea, vomiting and dysuria, fevers and chills, found to be septic Sepsis secondary to E coli bacteremia - received vancomycin, ceftriaxone, azithromycin in the ER . Got ceftriaxone x 2 days, switched to oral levaquin 01/01. Continue for total two weeks GI bleed - had bloody stool. FOBT +. Hb 11. GI consulted, recommended outpatient endoscopy/colonoscopy since COVID+. Still having bloody stool - continue protonix Anemia - Hb 11, stable, will repeat cbc Transaminitis- improving - LFT improved to 83/83/192 on 01/01. Repeat cmp Hypokalemia - resolved COVID pneumonia - currently a symptomatic with no respiratory symptoms. Will hold off on steroids. Continue doxycycline . Was on ceftriaxone and switched to levaquin for E coli bacteremia ESRD - nephrology consulted, plan for dialysis today Leukocytosis -resolved
--- NOTE | 2021-01-02 17:18 | PRG ---
DATE OF SERVICE: 01/02/2021 SUBJECTIVE: The patient is seen and examined in the event of GI bleed noted. OBJECTIVE: VITAL SIGNS: Afebrile, temperature 98.2, pulse 73, respiratory rate of 18, O2 saturations 98% with blood pressure 154/93. HEENT: Unremarkable. CARDIOVASCULAR SYSTEM: First and second heart sounds were heard. RESPIRATORY SYSTEM: Clear to auscultation. DIGESTIVE SYSTEM: Revealed benign abdomen. Positive bowel sounds. EXTREMITIES: No peripheral edema. SKIN: No new gross rash. LYMPHATICS: No peripheral lymphadenopathy. IMPRESSION: 1. End-stage renal disease, on hemodialysis. 2. Gastrointestinal bleed. 3. COVID infection. PLAN: 1. The patient is being dialyzed today with ultrafiltration as tolerated by hemodynamics per the patient's schedule. 2. Avoid any heparin products during dialysis. 3. Further management to be dependent on the clinical course. Job ID: [id number]
--- NOTE | 2021-01-02 19:38 | PRG ---
DATE OF SERVICE: 01/02/2021 SUBJECTIVE: Ms. Mariscal had about 10 bowel movements yesterday with diarrhea. The nurse tells me they were actually brown, not black. There was some bright red blood, scant. Today, she has only had two. She is eating well. Medications reviewed. OBJECTIVE: VITAL SIGNS: Temperature is 98, pulse 106, blood pressure 126/53. LABORATORY DATA: Hemoglobin was repeated today. Basic metabolic panel was repeated today. Microbiology, blood culture x2 with E coli. . RECOMMENDATIONS: Probably needs her blood count rechecked with a concern for bleeding which she came in. We would continue PPI. We would treat bacteremia and repeat her LFTs as well. We will follow along with you. Job ID: [id number]
[2021-01-02 19:42] LABS: Albumin 3.1 g/dL (3.4-4.8)
[2021-01-02] MEDS: Sodium Chloride 0.9% 1,000 ML IV SCH (19:42)
[2021-01-02 19:43] LABS: Chloride 97 mmol/L (98-107); Potassium 4.1 mmol/L (3.5-5.1); Sodium 135 mmol/L (136-145)
[2021-01-02 19:45] LABS: Globulin 3.8 g/dL (2.4-3.5); Glucose 101 mg/dL (80-115); Protein, Total 6.9 g/dL (5.8-8.1)
[2021-01-02 19:46] LABS: Anion Gap 19 mmol/L (10-20); Carbon Dioxide 23 mmol/L (23-31)
[2021-01-02 19:47] LABS: Alkaline Phosphatase 204 U/L (40-110); Bilirubin, Total 0.5 mg/dL (0.2-1.2)
[2021-01-02 19:48] LABS: Calc. Creatinine Clearance 18 mL/min (70-130)
[2021-01-02 19:49] LABS: BUN (Urea Nitrogen) 14 mg/dL (9.8-20.1)
[2021-01-02 19:50] LABS: AST (SGOT) 49 U/L (5-34)
[2021-01-02 19:51] LABS: ALT (SGPT) 52 U/L (8-55)
[2021-01-02 19:56] LABS: Hemoglobin 12.3 g/dL (12.0-16.0); Mean Corpuscular HGB CONC 31.2 g/dL (32.0-36.0); Mean Corpuscular Hemoglobin 29.6 pg (27.0-31.0); Mean Corpuscular Volume 94.9 fL (78.0-98.0); Mean Platelet Volume 11.5 fL (7.4-10.4); Platelet Count 87 thou/uL (130-400); RBC Distribution Width 15.8 % (11.5-14.5); Red Blood Cell (RBC) Count 4.16 mill/uL (4.20-5.40); White Blood Cell (WBC) Count 4.7 thou/uL (4.8-10.8)
[2021-01-03] MEDS: Doxycycline 100 MG CAP PO SCH ×2 (09:14→20:46)
[2021-01-03] MEDS: Amlodipine 5 MG TAB PO SCH (09:14)
[2021-01-03] MEDS: Ascorbic Acid 500 mg Chewable Tablet PO SCH (09:14)
[2021-01-03] MEDS: Zinc Sulfate 220 MG CAP PO SCH (09:15)
[2021-01-03] MEDS: Sodium Chloride 0.9% (PF) 10 ML VIAL FS PRN (09:15)
[2021-01-03] MEDS: Pantoprazole 40 MG VIAL IVP SCH ×2 (09:15→20:46)
[2021-01-03 11:13] LABS: Hemoglobin 11.6 g/dL (12.0-16.0); Mean Corpuscular HGB CONC 31.9 g/dL (32.0-36.0); Mean Corpuscular Volume 93.9 fL (78.0-98.0); Mean Platelet Volume 11.1 fL (7.4-10.4); Platelet Count 86 thou/uL (130-400); RBC Distribution Width 15.7 % (11.5-14.5); Red Blood Cell (RBC) Count 3.86 mill/uL (4.20-5.40); White Blood Cell (WBC) Count 5.4 thou/uL (4.8-10.8)
[2021-01-03 11:14] LABS: ALT (SGPT) 36 U/L (8-55); AST (SGOT) 28 U/L (5-34); Alkaline Phosphatase 169 U/L (40-110); Anion Gap 20 mmol/L (10-20); BUN (Urea Nitrogen) 21 mg/dL (9.8-20.1); Bilirubin, Total 0.5 mg/dL (0.2-1.2); Calc. Creatinine Clearance 14 mL/min (70-130); Carbon Dioxide 23 mmol/L (23-31); Chloride 97 mmol/L (98-107); Globulin 3.5 g/dL (2.4-3.5); Glucose 178 mg/dL (80-115); Protein, Total 6.5 g/dL (5.8-8.1); Sodium 136 mmol/L (136-145)
[2021-01-03 11:57] LABS: Anisocytosis SLIGHT = 6-15 cells (100X) (0-5/hpf); Band 3 % (5-11); Hypochromia SLIGHT = 6-15 cells (100X) (0-5/hpf); Lymphocytes 15 % (21-51); MDiff Complete? YES; Monocytes 2 % (0-10); Neutrophil 78 % (42-75); Platelet Morphology Comment Appears Decreased; Polychromasia SLIGHT = 2-3 cells (100X) (0-2/hpf); Reactive Lymphocytes 2 % (0-10)
--- NOTE | 2021-01-03 13:15 | MRI ---
MRI Abdomen WO Con History: Biliary sludge. Improving LFTs Comparison: Gallbladder ultrasound 4 days prior Findings: Lingular airspace opacities present. Is also mild airspace opacities both lower lobes. Aortic contour is nonaneurysmal. No intrahepatic or extra hepatic biliary dilatation. Extensive gallb ladder sludge. No definite stones are appreciated. No mass is appreciated although limited without intravenous contrast. The gallbladder sludge does not have high signal on the DWI sequence. Multiple bilateral renal cysts. The lateral renal cortical atrophy. Markedly T2 hyperintense incidental 9 mm cyst within the pancreatic head ventral parenchyma. No defin ite communication with the main pancreatic duct. The liver and spleen are T2 hypointense. Mild narrowing of the celiac trunk. No evidence for pancreaticobiliary maljunction. No choledocholithiasis. Punctate 2 mm T2 hyperintense focus within the pancreatic tail and body. Impression: 1. No choledocholithiasis. No intrahepatic or extra hepatic biliary dilatation. 2. Gallbladder sludge. 3. 9 mm T2 hyperintense cystic structure within the ventral pancreatic head parenchyma. Pancreatic pr otocol specific MRI of the abdomen recommended in 6 months. 4. Low T2 signal within the spleen and liver suggesting hemosiderin deposition. 5. Progressive consolidation in the lower lobes and lingula concerning for worsening pneumonia. 6. Atrophic polycystic kidneys. 7. Likely intraosseous hemangioma of the T1 vertebral body.
[2021-01-03] MEDS: Acetaminophen 325 MG TAB PO PRN ×2 (13:57→22:11)
--- NOTE | 2021-01-03 14:49 | PDOC.HOSPP ---
- Subjective Encounter Date: 01/03/21 Encounter Time: 12:00 Subjective: Patient seen for follow-up for sepsis. She reports feeling better. Reports that she did not have blood in stool today. - Objective Vital Signs & Weight: Vital Signs (12 hours) Temp Pulse Resp BP BP Pulse Ox 01/03/21 11:10 98.2 F 103 H 16 148/87 H 95 01/03/21 09:15 98 01/03/21 09:14 88 174/88 H 01/03/21 07:10 98.1 F 88 16 174/88 H 98 01/03/21 04:00 98.3 F 95 16 145/83 H 100 Weight Admit Weight 149 lb 14.629 oz Weight 149 lb 14.629 oz Result Diagrams: 01/03/21 10:02 01/03/21 10:02 Additional Labs: Accuchecks 01/03/21 01/02/21 01/02/21 04:23 19:46 16:42 POC Glucose 167 H 128 H 103 H Labs and MAR reviewed by [facility] Hospitalist ROS - Review of Systems Respiratory: reports: other. denies: cough, dry, shortness of breath, hemoptysis, SOB with excertion, pleuritic pain, sputum, wheezing Gastrointestinal: reports: abdominal pain. denies: nausea, vomiting, diarrhea, constipation, melena, hematochezia - Medication Medications: Active Medications Generic Name Dose Route Start Last Admin Trade Name Freq PRN Reason Stop Dose Admin Acetaminophen 650 mg 12/29/20 20:58 01/03/21 13:57 Acetaminophen 325 Mg Tab PO 650 mg Q4H PRN Administration Headache/Fever/Mild Pain (1-3) Amlodipine Besylate 5 mg 01/02/21 09:00 01/03/21 09:14 Amlodipine 5 Mg Tab PO 5 mg DAILY MAXIMILIANO Administration Ascorbic Acid 1,000 mg 12/30/20 09:00 01/03/21 09:14 Ascorbic Acid 500 Mg Chewable Tablet PO 1,000 mg DAILY MAXIMILIANO Administration Doxycycline Hyclate 100 mg 12/30/20 21:00 01/03/21 09:14 Doxycycline 100 Mg Cap PO 100 mg BID MAXIMILIANO Administration Sodium Chloride 1,000 mls @ 50 mls/hr 01/02/21 19:15 01/02/21 19:42 Normal Saline 0.9% IV 1,000 mls .Q20H MAXIMILIANO Administration Insulin Human Lispro 0 units 12/29/20 21:54 12/30/20 05:29 Humalog 300 Units/3 Ml Vial SC 2 unit .MILD SLIDING SCALE PRN Administration Mild Correctional Scale Insulin Human Lispro 0 units 12/29/20 21:54 12/29/20 22:57 Humalog 300 Units/3 Ml Vial SC 4 unit .BEDTIME SLIDING SC PRN Administration Bedtime Correctional Scale Levofloxacin 750 mg 01/02/21 06:00 01/03/21 05:37 Levofloxacin 750 Mg Tab PO 750 mg 0600 MAXIMILIANO Administration Ondansetron HCl 4 mg 12/29/20 20:58 01/01/21 08:07 Ondansetron Pf 4 Mg/2 Ml Vial IVP 4 mg Q6H PRN Administration Nausea/Vomiting Pantoprazole Sodium 40 mg 01/01/21 21:00 01/03/21 09:15 Pantoprazole 40 Mg Vial IVP 40 mg Q12HR MAXIMILIANO Administration Promethazine HCl 12.5 mg 12/31/20 13:56 01/02/21 12:20 Promethazine Hcl 6.25 Mg/5 Ml Syrup PO 12.5 mg Q6H PRN Administration Nausea/Vomiting Sodium Chloride 10 ml 01/01/21 13:30 01/03/21 09:15 Sodium Chloride 0.9% (Pf) 10 Ml Vial FS 10 ml PRN PRN Administration RECONSTITUTION Zinc Sulfate 220 mg 12/30/20 09:00 01/03/21 09:15 Zinc Sulfate 220 Mg Cap PO 220 mg DAILY MAXIMILIANO Administration Hospitalist Exam Vitals: Vital Signs (12 hours) Temp Pulse Resp BP BP Pulse Ox 01/03/21 11:10 98.2 F 103 H 16 148/87 H 95 01/03/21 09:15 98 01/03/21 09:14 88 174/88 H 01/03/21 07:10 98.1 F 88 16 174/88 H 98 01/03/21 04:00 98.3 F 95 16 145/83 H 100 Weight Admit Weight 149 lb 14.629 oz Weight 149 lb 14.629 oz General Appearance: awake alert Eye: anicteric sclera ENT: normocephalic atraumatic Neck: supple Heart: RRR Respiratory: CTAB Gastrointestinal: soft, non-tender Skin - other findings: Lesion as documented Psychiatric: normal affect, normal behavior Hosp A/P - Plan Sepsis secondary to E coli bacteremia -Continue levofloxacin GI bleed -Hemoglobin stabilizing - continue protonix Anemia - Hb 11.6, stable Transaminitis- improving -MRI abdomen results noted Hypokalemia - resolved COVID pneumonia - currently a symptomatic with no respiratory symptoms. Will hold off on steroids. ESRD -Dialysis per nephrology service Leukocytosis -resolved
[2021-01-03] MEDS: Sodium Chloride 0.9% 1,000 ML IV SCH ×2 (15:32→20:49)
--- NOTE | 2021-01-03 17:32 | EKG ---
Test Reason : Blood Pressure : / mmHG Vent. Rate : 104 BPM Atrial Rate : 104 BPM P-R Int : 188 ms QRS Dur : 094 ms QT Int : 456 ms P-R-T Axes : 083 -38 -01 degrees QTc Int : 599 ms Sinus tachycardia Left axis deviation Possible Inferior infarct , age undetermined Cannot rule out Anterior infarct , age undetermined Abnormal ECG Confirmed by TERESITA BOB, BOO ([id number]), scientific editor LEANNE STEPHENSON ([id number]) on 01/03/2021 5:32:26 PM Referred By: Confirmed By:BOO LO MD
[2021-01-04 06:53] LABS: Hemoglobin 11.5 g/dL (12.0-16.0); Mean Corpuscular HGB CONC 31.1 g/dL (32.0-36.0); Mean Corpuscular Hemoglobin 29.2 pg (27.0-31.0); Mean Platelet Volume 10.5 fL (7.4-10.4); Platelet Count 106 thou/uL (130-400); RBC Distribution Width 15.9 % (11.5-14.5); Red Blood Cell (RBC) Count 3.91 mill/uL (4.20-5.40); White Blood Cell (WBC) Count 4.6 thou/uL (4.8-10.8)
[2021-01-04 07:08] LABS: #Lymphocytes 0.9 thou/uL (1.20-3.40); #Monocytes 0.4 thou/uL (0.11-0.59); #Neutrophils 3.6 thou/uL (1.40-6.50); %Basophils 0.1 % (0.0-1.0); %Lymphocytes 17.3 % (21.0-51.0); %Monocytes 8.2 % (0.0-10.0); %Neutrophils 73.4 % (42.0-75.0); Band 3 % (5-11); Lymphocytes 24 % (21-51); MDiff Complete? YES; Monocytes 8 % (0-10); Neutrophil 65 % (42-75); Platelet Morphology Comment Appears Decreased; RBC Morphology Normal
[2021-01-04 07:12] LABS: ALT (SGPT) 29 U/L (8-55); AST (SGOT) 24 U/L (5-34); Alkaline Phosphatase 150 U/L (40-110); Anion Gap 19 mmol/L (10-20); BUN (Urea Nitrogen) 27 mg/dL (9.8-20.1); Bilirubin, Total 0.5 mg/dL (0.2-1.2); Calc. Creatinine Clearance 11 mL/min (70-130); Calcium 9.3 mg/dL (7.8-10.44); Carbon Dioxide 25 mmol/L (23-31); Chloride 97 mmol/L (98-107); Globulin 3.4 g/dL (2.4-3.5); Glucose 112 mg/dL (80-115); Potassium 3.7 mmol/L (3.5-5.1); Protein, Total 6.4 g/dL (5.8-8.1); Sodium 137 mmol/L (136-145)
[2021-01-04] MEDS: Zinc Sulfate 220 MG CAP PO SCH (09:02)
[2021-01-04] MEDS: Doxycycline 100 MG CAP PO SCH ×2 (09:02→20:35)
[2021-01-04] MEDS: Amlodipine 5 MG TAB PO SCH (09:02)
[2021-01-04] MEDS: Ascorbic Acid 500 mg Chewable Tablet PO SCH (09:02)
[2021-01-04] MEDS: Pantoprazole 40 MG VIAL IVP SCH ×2 (09:02→20:35)
--- NOTE | 2021-01-04 10:50 | PRG ---
DATE OF SERVICE: 01/03/2021 SUBJECTIVE: Ms. Mariscal feels a bit better. She is not vomiting anymore. She states diarrhea has lessened. MRI showed sludge in the gallbladder. No choledocholithiasis. She had a 9 mm cyst in the pancreatic head, atrophic polycystic kidneys and consolidation in the lower lobes and lingula. OBJECTIVE: VITAL SIGNS: Temperature is 98, T-max 100.3, pulse is 88 to 103, blood pressure 148/87. GENERAL: She is resting in bed. She is in no distress. Vision is poor. LUNGS: Decreased breath sounds at bases. HEART: Regular rate and rhythm. ABDOMEN: Soft, nontender. There is no rebound. There is no guarding. There is specifically no right upper quadrant tenderness. LABORATORY DATA: White count 5.4, hemoglobin 11.6, platelet count 86,000. Sodium 136, potassium 4, BUN and creatinine 21 and 4.23. AST and ALT are now 28 and 36, down from 1124 and 253 on admission, alkaline phosphatase 169, albumin 3, protein 6. ASSESSMENT: 1. Escherichia coli sepsis, etiology unclear. HIDA scan shows no signs of stone in the bile duct. She does have sludge. She did have a transient elevation of LFTs when she came in. This could have been passing a stone, but this also could have been shock liver from hypotension when she came in. 2. Nausea and vomiting, resolved. 3. Hemoccult positive. Hemoglobin stable. She has outpatient endoscopy scheduled very soon with her gastrologist at [facility]. 4. Covert pneumonia. She has some worsening infiltrate on her MRI of the lower abdomen. RECOMMENDATIONS: 1. It is concerning that would have a source of her E coli infection. Her urine was normal. This may have been biliary, but there is not seem to be any acute cholecystitis or cholangitis. She has no ductal dilatation. No choledocholithiasis on imaging. May be reasonable to consider cholecystectomy at a later date, but definitely again would not embark on that with recent COVID positive status. 2. With regard to her history of colon cancer and anemia, she was scheduled for upper and lower endoscopies either last week or this upcoming week with her primary gastrologist at [facility], Dr. Vic Mar. She can follow up there. 3. She has a 9 mm cyst in the head of her pancreas. Radiology recommended that could be followed up with MRI in three months. Alternatively EUS, endoscopic ultrasound of the pancreas would be reasonable. This is not available here and can be done at [facility] too once she recovers from COVID. At this time, we will follow from distance. Her LFTs are improving. She feels better. Job ID: [id number]
[2021-01-04] MEDS ORDERED: hydrALAZINE 20 MG/ML VIAL SLOW IVP PRN (12:07)
--- NOTE | 2021-01-04 12:58 | PRG ---
DATE OF SERVICE: 01/04/2021 SUBJECTIVE: Ms. Mariscal feels she is doing a lot better. On talking with her nurse, Tricia today, she may have had 2 bowel movements yesterday and she has only had 1 so far today. There has been no melena or bleeding. She is starting to eat more. OBJECTIVE: VITAL SIGNS: Temperature 98, pulse 100, blood pressure 179/97. ABDOMEN: Soft, nontender. LUNGS: Clear. LABORATORY DATA: White count 4.6, hemoglobin is still at 11.5, platelets were 106, bands down from 52% to 3%. BUN and creatinine are 27 and 5.3. Sodium 137, potassium 3.6, alk phosphatase down to 150, AST and ALT are now 24 and 29, albumin 3, protein 6.4. ASSESSMENT: 1. Escherichia coli bacteremia of unclear etiology. 2. There has been reported rectal bleeding. She has not dropped her hemoglobin 1 bit since she has been here. 3. Diarrhea, chronically worsened with this acute infection. 4. Transaminitis, resolved. MRI showed no evidence of choledocholithiasis or stones. She does have some significant sludge. 5. She follows up with a gastrologist at [facility] and wants to schedule for outpatient endoscopy soon. 6. COVID pneumonia. 7. End-stage renal disease. RECOMMENDATIONS: 1. Agree with continuing antibiotics. 2. No real etiology of symptoms have been found. She did have transient biliary dysfunction with the elevated AST and ALT and bilirubin. She could have passed a small stone or sludge, but she did not really have any overt symptoms of cholangitis on presentation that may have been muted by her history of uncontrolled diabetes and renal failure; however, the MRI is not showing any choledocholithiasis or biliary obstruction and no stones, just sludge. She is responding to therapy well. 3. With regard to her diarrhea, there seems to be a chronic component of that and so that is related to the fact that she has had previous colon resection for cancer. She also has very poorly controlled diabetes, which probably does not help. 4. As far as the reports of bloody stool, she has reported most of this and she does not see well as she, in fact, states she is blind. The nurses not seen gross blood. She may have a little bit of hemorrhoidal bleeding at times. When I did a rectal examination when she first came and her stool was brown. Her hemoglobin was 12.8 on admission and it is 11.5 now. She has received no blood. GI bleed is not an issue at this time. Once she gets over this infection, she should follow up with her gastrologist for scheduled surveillance procedures in the outpatient setting. At this time, we will sign off. If I can be further assistance in this patient's care, please do not hesitate to contact me. Job ID: [id number]
[2021-01-04] MEDS ORDERED: Lidocaine Viscous Sol 2% 15 ml UD Cup SSP PRN (14:00)
[2021-01-04] MEDS: Labetalol HCl 100 MG/20 ML VIAL SLOW IVP PRN ×2 (15:55→20:58)
--- NOTE | 2021-01-04 16:43 | PDOC.HOSPP ---
- Subjective Encounter Date: 01/04/21 Encounter Time: 11:30 Subjective: Patient seen for follow-up regarding sepsis. Complains of pain by the buttock wound. Also complains of oral sores. - Objective Vital Signs & Weight: Vital Signs (12 hours) Temp Pulse Resp BP BP Pulse Ox 01/04/21 15:55 97 01/04/21 14:54 97 188/95 H 01/04/21 12:57 88 192/80 H 01/04/21 12:00 97.7 F 86 18 192/80 H 100 01/04/21 07:17 98.2 F 100 18 179/97 H 98 Weight Admit Weight 149 lb 14.629 oz Weight 149 lb 14.629 oz I&O: 01/03/21 01/04/21 01/05/21 06:59 06:59 06:59 Intake Total 680 Balance 680 Result Diagrams: 01/04/21 06:19 01/04/21 06:19 Additional Labs: Accuchecks 01/04/21 01/03/21 01/03/21 04:35 19:37 16:26 POC Glucose 108 H 170 H 148 H I reviewed patient's labs and MAR Hospitalist ROS - Review of Systems Constitutional: denies: fever, chills, sweats, weakness, malaise Genitourinary: denies: dysuria, frequency, incontinence, hematuria, retention Musculoskeletal: reports: back pain - Medication Medications: Active Medications Generic Name Dose Route Start Last Admin Trade Name Freq PRN Reason Stop Dose Admin Acetaminophen 650 mg 12/29/20 20:58 01/03/21 22:11 Acetaminophen 325 Mg Tab PO 650 mg Q4H PRN Administration Headache/Fever/Mild Pain (1-3) Amlodipine Besylate 5 mg 01/02/21 09:00 01/04/21 09:02 Amlodipine 5 Mg Tab PO 5 mg DAILY MAXIMILIANO Administration Ascorbic Acid 1,000 mg 12/30/20 09:00 01/04/21 09:02 Ascorbic Acid 500 Mg Chewable Tablet PO 1,000 mg DAILY MAXIMILIANO Administration Doxycycline Hyclate 100 mg 12/30/20 21:00 01/04/21 09:02 Doxycycline 100 Mg Cap PO 100 mg BID MAXIMILIANO Administration Sodium Chloride 1,000 mls @ 50 mls/hr 01/02/21 19:15 01/03/21 20:49 Normal Saline 0.9% IV 1,000 mls .Q20H MAXIMILIANO Administration Insulin Human Lispro 0 units 12/29/20 21:54 12/30/20 05:29 Humalog 300 Units/3 Ml Vial SC 2 unit .MILD SLIDING SCALE PRN Administration Mild Correctional Scale Insulin Human Lispro 0 units 12/29/20 21:54 12/29/20 22:57 Humalog 300 Units/3 Ml Vial SC 4 unit .BEDTIME SLIDING SC PRN Administration Bedtime Correctional Scale Labetalol HCl 10 mg 01/04/21 14:52 01/04/21 15:55 Labetalol Hcl 100 Mg/20 Ml Vial SLOW IVP 10 mg Q4H PRN Administration SBP Greater Than 180 Levofloxacin 750 mg 01/02/21 06:00 01/04/21 05:01 Levofloxacin 750 Mg Tab PO 750 mg 0600 MAXIMILIANO Administration Ondansetron HCl 4 mg 12/29/20 20:58 01/01/21 08:07 Ondansetron Pf 4 Mg/2 Ml Vial IVP 4 mg Q6H PRN Administration Nausea/Vomiting Pantoprazole Sodium 40 mg 01/01/21 21:00 01/04/21 09:02 Pantoprazole 40 Mg Vial IVP 40 mg Q12HR MAXIMILIANO Administration Promethazine HCl 12.5 mg 12/31/20 13:56 01/02/21 12:20 Promethazine Hcl 6.25 Mg/5 Ml Syrup PO 12.5 mg Q6H PRN Administration Nausea/Vomiting Sodium Chloride 10 ml 01/01/21 13:30 01/03/21 09:15 Sodium Chloride 0.9% (Pf) 10 Ml Vial FS 10 ml PRN PRN Administration RECONSTITUTION Zinc Sulfate 220 mg 12/30/20 09:00 01/04/21 09:02 Zinc Sulfate 220 Mg Cap PO 220 mg DAILY MAXIMILIANO Administration Hospitalist Exam Vitals: Vital Signs (12 hours) Temp Pulse Resp BP BP Pulse Ox 01/04/21 15:55 97 01/04/21 14:54 97 188/95 H 01/04/21 12:57 88 192/80 H 01/04/21 12:00 97.7 F 86 18 192/80 H 100 01/04/21 07:17 98.2 F 100 18 179/97 H 98 Weight Admit Weight 149 lb 14.629 oz Weight 149 lb 14.629 oz General Appearance: awake alert Eye: anicteric sclera ENT: moist mucosa Neck: supple Heart: RRR Respiratory: CTAB Gastrointestinal: soft, non-tender Skin: no rashes Psychiatric: normal affect, normal behavior Hosp A/P - Plan Sepsis secondary to E coli bacteremia -Continue levofloxacin -Etiology of E. coli bacteremia is unclear. Final urine culture is negative. There was no evidence of a biliary source. Consult infectious diseases for opinion and help with management. GI bleed -Hemoglobin stable. - continue protonix Anemia - stable Transaminitis - improving Hypokalemia - resolved COVID pneumonia - currently a symptomatic with no respiratory symptoms. Will hold off on steroid s. ESRD -Dialysis per nephrology service Leukocytosis -resolved Trial of alpha mattress. Trial lidocaine swish and spit.
--- NOTE | 2021-01-04 18:33 | PRG ---
DATE OF SERVICE: 01/04/2021 SUBJECTIVE: The patient noted with the following vital signs. OBJECTIVE: VITAL SIGNS: Afebrile, temperature 97.7, pulse 88, blood pressure 180/95 to 192/80. HEENT: Unremarkable CARDIOVASCULAR SYSTEM: First and second heart sounds were heard. RESPIRATORY SYSTEM: Clear to auscultation. DIGESTIVE SYSTEM: Revealed a benign abdomen. EXTREMITIES: No peripheral edema. SKIN: No new gross rash. IMPRESSION: 1. End-stage renal disease, on hemodialysis. 2. Hypertension, suboptimally controlled. 3. COVID infection. 4. Sepsis. PLAN: 1. We will have this patient undergo dialysis tomorrow with increased ultrafiltration. 2. Consider starting antihypertensive medication to optimize the hemodynamics in this patient. 3. Further management to be dependent on the clinical course. 4. Please discontinue IV fluid in this patient as the patient is very hypertensive. Also, the patient is already on antihypertensive medication. We will monitor and adjust dose accordingly. Job ID: [id number]
[2021-01-04] MEDS: Ondansetron PF 4 MG/2 ML Vial IVP PRN (20:40)
[2021-01-04] MEDS: Sodium Chloride 0.9% (PF) 10 ML VIAL FS PRN (20:40)
[2021-01-04] MEDS: Acetaminophen 325 MG TAB PO PRN (20:50)
[2021-01-05] MEDS: Acetaminophen 325 MG TAB PO PRN ×2 (05:16→21:30)
[2021-01-05] MEDS: Ondansetron PF 4 MG/2 ML Vial IVP PRN ×2 (05:17→15:38)
[2021-01-05 06:26] LABS: #Eosinphils 0.1 thou/uL (0.0-0.7); #Monocytes 0.6 thou/uL (0.11-0.59); %Lymphocytes 22.1 % (21.0-51.0); %Monocytes 11.6 % (0.0-10.0); %Neutrophils 64.3 % (42.0-75.0); Hemoglobin 10.4 g/dL (12.0-16.0); Mean Corpuscular HGB CONC 31.5 g/dL (32.0-36.0); Mean Platelet Volume 10.4 fL (7.4-10.4); Platelet Count 134 thou/uL (130-400); Red Blood Cell (RBC) Count 3.58 mill/uL (4.20-5.40); White Blood Cell (WBC) Count 4.7 thou/uL (4.8-10.8)
[2021-01-05 06:50] LABS: ALT (SGPT) 22 U/L (8-55); AST (SGOT) 19 U/L (5-34); Albumin 2.7 g/dL (3.4-4.8); Alkaline Phosphatase 133 U/L (40-110); Anion Gap 16 mmol/L (10-20); BUN (Urea Nitrogen) 34 mg/dL (9.8-20.1); Bilirubin, Total 0.5 mg/dL (0.2-1.2); Calc. Creatinine Clearance 9 mL/min (70-130); Calcium 9.1 mg/dL (7.8-10.44); Carbon Dioxide 25 mmol/L (23-31); Chloride 100 mmol/L (98-107); Globulin 3.1 g/dL (2.4-3.5); Glucose 132 mg/dL (80-115); Potassium 3.8 mmol/L (3.5-5.1); Protein, Total 5.8 g/dL (5.8-8.1); Sodium 137 mmol/L (136-145)
[2021-01-05] MEDS: Ascorbic Acid 500 mg Chewable Tablet PO SCH (07:59)
[2021-01-05] MEDS: Zinc Sulfate 220 MG CAP PO SCH (07:59)
[2021-01-05] MEDS: Pantoprazole 40 MG VIAL IVP SCH ×2 (07:59→21:30)
[2021-01-05] MEDS: Doxycycline 100 MG CAP PO SCH ×2 (08:00→21:30)
[2021-01-05] MEDS: Amlodipine 5 MG TAB PO SCH (08:00)
--- NOTE | 2021-01-05 12:07 | PRG ---
DATE OF SERVICE: 01/05/2021 Ms. Mariscal needs to eat well. She is going to go dialysis today. Temperature is 98, pulse is 85, blood pressure 167/85. She does complain of dizziness when she sits up. Reports she has vertigo. Abdomen is soft, nontender. There is no rebound. There is no guarding. White count 4.7, hemoglobin 10.4, platelet count 134. Sodium 137, potassium 3.8, BUN and creatinine are 34 and 6.4, alkaline phosphatase has come down to 133. AST and ALT are normal at 19 and 22. Bilirubin is 0.5. ASSESSMENT: 1. Escherichia coli sepsis, markedly improved. ID is going to apparently see her today to see if they can help us find a source. Her UA was negative. She did have a history of nausea, vomiting, and diarrhea before she came in. She did have transient elevation of LFTs with AST and ALT of 1124 and 253 on admission. Bilirubin 2.1 on admission and an alkaline phosphatase of 266 on admission. These have all come down normal except for the alkaline phosphatase which is 133 now. It trends down every day. She had a lot of sludge in her gallbladder, but never had any right upper quadrant pain. She had an MRCP that showed no evidence of biliary obstruction but did show sludge. With her history of diabetes, it is always possible this is atypical biliary presentation. We have not been aggressive about having surgeries here. She was diagnosed with COVID about the same time she was admitted. 2. COVID infection but no symptoms right now. 3. There were reports of GI bleeding. This was never confirmed by rectal exam. She had brown stools. Hemoglobin has been essentially stable through admission. After hydration, it was 10.8 and today, it is 10.4. She reports that she has an upcoming EGD and colonoscopy at [facility] possibly, she missed it last week but that can be rescheduled. She had followed there and is following there for some time for history of colon cancer and issues of chronic GI problems such as loose stools after eating since her previous resection. At this time, we will follow from a distance. If I can be of any further assistance, please do not hesitate to re-consult GI. Job ID: [id number]
[2021-01-05] MEDS: Labetalol HCl 100 MG/20 ML VIAL SLOW IVP PRN (14:29)
--- NOTE | 2021-01-05 14:46 | PRG ---
DATE OF SERVICE: 01/05/2021 SUBJECTIVE: The patient noted with the following vital signs. OBJECTIVE: VITAL SIGNS: Afebrile, temperature 98.3, pulse 85, blood pressure 169/85, O2 saturation of 95%. HEENT: Unremarkable. CARDIOVASCULAR SYSTEM: First and second heart sounds were heard. RESPIRATORY SYSTEM: Clear to auscultation. DIGESTIVE SYSTEM: Revealed a benign abdomen. EXTREMITIES: No peripheral edema. SKIN: No new gross rash. LYMPHATICS: No peripheral lymphadenopathy. IMPRESSION: 1. End-stage renal disease, due for dialysis today. 2. Sepsis. 3. Possible gastrointestinal bleed. 4. COVID infection. PLAN: 1. The patient to be dialyzed today in accordance with the schedule with ultrafiltration. We will aim to increase this patient's ultrafiltration. Hopefully, this will help to address the suboptimally controlled blood pressure in this patient. 2. Further management to be dependent on the clinical course. Job ID: [id number]
[2021-01-05] MEDS ORDERED: cloNIDine 0.1 MG TAB PO PRN (16:50)
--- NOTE | 2021-01-05 16:58 | PDOC.HOSPP ---
- Subjective Encounter Date: 01/05/21 Encounter Time: 08:30 Subjective: Patient seen in follow-up regarding sepsis secondary to bacteremia. Denies any new complaints. - Objective Vital Signs & Weight: Vital Signs (12 hours) Temp Pulse Resp BP BP BP Pulse Ox 01/05/21 15:43 98.2 F 78 20 186/89 H 97 01/05/21 14:29 87 188/99 H 01/05/21 11:58 20 96 01/05/21 08:00 85 167/85 H 95 01/05/21 07:51 98.3 F 85 20 167/85 H 95 Weight Admit Weight 149 lb 14.629 oz Weight 149 lb 14.629 oz I&O: 01/04/21 01/05/21 01/06/21 06:59 06:59 06:59 Intake Total 680 1080 Balance 680 1080 Result Diagrams: 01/05/21 06:03 01/05/21 06:03 Additional Labs: Accuchecks 01/05/21 01/05/21 01/05/21 16:10 11:49 04:28 POC Glucose 128 H 145 H 133 H 01/04/21 01/04/21 01/04/21 21:04 17:03 11:28 POC Glucose 153 H 143 H 127 H 01/03/21 01/02/21 11:09 06:07 POC Glucose 173 H 88 Labs and MAR reviewed by ar Hospitalist ROS - Review of Systems Cardiovascular: denies: chest pain, palpitations, orthopnea, paroxysmal noc. dyspnea, edema Gastrointestinal: denies: nausea, vomiting, abdominal pain, diarrhea, constipation, melena - Medication Medications: Active Medications Generic Name Dose Route Start Last Admin Trade Name Freq PRN Reason Stop Dose Admin Acetaminophen 650 mg 12/29/20 20:58 01/05/21 05:16 Acetaminophen 325 Mg Tab PO 650 mg Q4H PRN Administration Headache/Fever/Mild Pain (1-3) Amlodipine Besylate 5 mg 01/02/21 09:00 01/05/21 08:00 Amlodipine 5 Mg Tab PO 5 mg DAILY MAXIMILIANO Administration Ascorbic Acid 1,000 mg 12/30/20 09:00 01/05/21 07:59 Ascorbic Acid 500 Mg Chewable Tablet PO 1,000 mg DAILY MAXIMILIANO Administration Doxycycline Hyclate 100 mg 12/30/20 21:00 01/05/21 08:00 Doxycycline 100 Mg Cap PO 100 mg BID MAXIMILIANO Administration Insulin Human Lispro 0 units 12/29/20 21:54 12/30/20 05:29 Humalog 300 Units/3 Ml Vial SC 2 unit .MILD SLIDING SCALE PRN Administration Mild Correctional Scale Insulin Human Lispro 0 units 12/29/20 21:54 12/29/20 22:57 Humalog 300 Units/3 Ml Vial SC 4 unit .BEDTIME SLIDING SC PRN Administration Bedtime Correctional Scale Labetalol HCl 10 mg 01/04/21 14:52 01/05/21 14:29 Labetalol Hcl 100 Mg/20 Ml Vial SLOW IVP 10 mg Q4H PRN Administration SBP Greater Than 180 Levofloxacin 750 mg 01/02/21 06:00 01/05/21 05:16 Levofloxacin 750 Mg Tab PO 750 mg 0600 MAXIMILIANO Administration Lidocaine HCl 15 ml 01/04/21 14:00 01/04/21 20:40 Lidocaine Viscous [place] 2% 15 Ml Ud Cup SSP 15 ml Q6H PRN Administration Mouth Irritation Ondansetron HCl 4 mg 12/29/20 20:58 01/05/21 15:38 Ondansetron Pf 4 Mg/2 Ml Vial IVP 4 mg Q6H PRN Administration Nausea/Vomiting Pantoprazole Sodium 40 mg 01/01/21 21:00 01/05/21 07:59 Pantoprazole 40 Mg Vial IVP 40 mg Q12HR MAXIMILIANO Administration Promethazine HCl 12.5 mg 12/31/20 13:56 01/02/21 12:20 Promethazine Hcl 6.25 Mg/5 Ml Syrup PO 12.5 mg Q6H PRN Administration Nausea/Vomiting Sodium Chloride 10 ml 12/29/20 20:58 01/04/21 20:36 Flush - Normal Saline 10 Ml Syringe IVF 10 ml Q12HR PRN Administration Saline Flush Sodium Chloride 10 ml 01/01/21 13:30 01/04/21 20:40 Sodium Chloride 0.9% (Pf) 10 Ml Vial FS 10 ml PRN PRN Administration RECONSTITUTION Zinc Sulfate 220 mg 12/30/20 09:00 01/05/21 07:59 Zinc Sulfate 220 Mg Cap PO 220 mg DAILY MAXIMILIANO Administration Hospitalist Exam Vitals: Vital Signs (12 hours) Temp Pulse Resp BP BP BP Pulse Ox 01/05/21 15:43 98.2 F 78 20 186/89 H 97 01/05/21 14:29 87 188/99 H 01/05/21 11:58 20 96 01/05/21 08:00 85 167/85 H 95 01/05/21 07:51 98.3 F 85 20 167/85 H 95 Weight Admit Weight 149 lb 14.629 oz Weight 149 lb 14.629 oz General Appearance: awake alert Eye: anicteric sclera ENT: normocephalic atraumatic, moist mucosa Neck: supple Heart: RRR Respiratory: CTAB Gastrointestinal: soft, non-tender Skin: no rashes Psychiatric: normal affect, normal behavior Hosp A/P - Plan Sepsis secondary to E coli bacteremia -Continue levofloxacin -Etiology of E. coli bacteremia is unclear. GI bleed -Hemoglobin stable. - continue PPI Anemia - stable Transaminitis - improving COVID pneumonia - currently a symptomatic with no respiratory symptoms. Will hold off on steroids. ESRD -Dialysis per nephrology service Leukocytosis -resolved Hypokalemia - resolved
[2021-01-05] MEDS: Sodium Chloride 0.9% (PF) 10 ML VIAL FS PRN (21:30)
--- NOTE | 2021-01-05 21:49 | CON ---
DATE OF CONSULTATION: 01/05/2021 REASON: Bacteremia, COVID-19. HISTORY OF PRESENT ILLNESS: 65-year-old who has a history of type 2 diabetes with end-stage renal disease, on hemodialysis through an AV graft, right upper extremity; history of colon cancer, in remission after resection and sleeve gastrectomy, who lives in an assisted living facility about a block from the hospital and developed general malaise and hypoxemia with low-grade fever, chills. She also has pain which she points at the left lateral chest wall, which was transient. She did not have any headaches. She did have some sore throat, some cough but no sputum production. No dyspnea. She denied any abdominal pain. Some nausea but no vomiting. She has no urine output. No joint symptoms. PAST MEDICAL HISTORY: Type 2 diabetes, hypertension, end-stage renal disease on hemodialysis, appears to be an AV graft in the right upper extremity, retinopathy, colon cancer in remission after surgery, sleeve gastrectomy. SOCIAL HISTORY: Lives at [facility]. Never smoker. ALLERGIES: CODEINE, LISINOPRIL. CURRENT MEDICATIONS: 1. Inhaler. 2. Norvasc. 3. Catapres. 4. Doxycycline. 5. Insulin. 6. Levaquin. 7. Zinc. FAMILY HISTORY: Noncontributory. PHYSICAL EXAMINATION: VITAL SIGNS: On arrival, her temperature was 98.6 and it went up to 100.3, BP 180/80, heart rate 78, respirations 20, O2 saturation 97. SKIN: Very mild erythema in the gluteal region, small little ulcer there as well. Areas of erythema in the dorsal aspect of the right and left feet with one tiny little ulcer scabbed over. An area of bruising in the medial aspect of the right forearm overlying the AV graft/fistula. GENERAL: She does not appear in distress. No lymphadenopathy. HEENT: Ocular movements conjugate. She has a distorted pupil in the right side. She has had numerous surgical interventions there. She has no light perception in the right eye. Left eye, pupil is normal and reactive. She is able to read from the left side. Oral cavity with still quite a few teeth in place. Oral mucosa is dry. No jugular vein distention. LUNGS: Symmetric air entry. No crackles or wheezing. HEART: S1, S2. Regular rate without murmurs. ABDOMEN: Soft, flat, not distended. No tenderness. EXTREMITIES: She is able to move all 4 extremities. No joint inflammatory activity. No edema. Pulses 1+ in dorsalis pedis. NEUROLOGICAL: She is awake, oriented, follows commands. LABORATORY DATA: Latest labs; sodium 138, creatinine 6.40. She did have a spike in her liver function tests when she came in, bilirubin direct was 0.5, total bilirubin was 2.1. AST was 1124, ALT was 253, alkaline phosphatase was 266. All those levels have decreased markedly over the past few days. Albumin 2.7. IMAGING STUDIES: She had an abdomen MRI done on the , which showed no evidence of choledocholithiasis and no intrahepatic or extrahepatic biliary dilatation. There was a gallbladder sludge. There was a cystic structure within the ventral pancreatic head parenchyma. She had a chest CT angiogram on December 29 which showed no evidence of pulmonary embolism. There was patchy infiltrate, peripheral left upper lobe. A brain CT scan was done as well, which showed small-vessel disease findings. An abdominal ultrasound was done on the with large amount of sludge within the gallbladder, which is mildly distended. Consultations with Gastroenterology, Dr. Castillo were obtained in part because of dark stool. It does not look like there is a comment in the notes regarding her liver function abnormalities. In the progress notes, the abnormal liver function tests are noted, considered possibility of a biliary tract obstruction, which was transient. It is the more likely scenario, but did not feel like she was a candidate for cholecystectomy at least at this point in time, but in the future, probably recommended step to be taken. ASSESSMENT: 1. End-stage renal disease, type 2 diabetes, hemodialysis through an AV graft/fistula, COVID-19 of uncertain duration with very little manifestations in the respiratory tract. 2. Nausea, vomiting, low-grade fever, marked elevation in the liver function tests which have returned to almost normal over the course of the past few days associated with Escherichia coli bacteremia and the imaging findings described above. DISCUSSION: I believe that the COVID-19 is just a sort of innocent bystander at this point in time and the biliary tract with likely transient obstruction of the biliary drainage leading to a transient cholangitis and bacteremia is the more likely scenario. The organism is quite susceptible to antimicrobials, and she is eligible for discharge planning on oral quinolone and at a later date she can be considered for cholecystectomy. Otherwise, she will have recurrence of the syndrome. I do not think the COVID-19 is a major concern at this point in time. She is saturating 97 on room air and very little infiltrates in the lung imaging study. We will go ahead and submit an antibody test. If she has high titers, then we would probably consider this as a resolved issue. Job ID: [id number]
[2021-01-06 06:36] LABS: Hemoglobin 11.2 g/dL (12.0-16.0); Mean Corpuscular HGB CONC 31.2 g/dL (32.0-36.0); Mean Corpuscular Volume 92.9 fL (78.0-98.0); Mean Platelet Volume 10.2 fL (7.4-10.4); Platelet Count 131 thou/uL (130-400); RBC Distribution Width 15.8 % (11.5-14.5); Red Blood Cell (RBC) Count 3.86 mill/uL (4.20-5.40); White Blood Cell (WBC) Count 5.3 thou/uL (4.8-10.8)
[2021-01-06 06:53] LABS: Band 8 % (5-11); Hypochromia SLIGHT = 6-15 cells (100X) (0-5/hpf); Lymphocytes 8 % (21-51); MDiff Complete? YES; Monocytes 19 % (0-10); Neutrophil 61 % (42-75); Platelet Morphology Comment Appears Adequate; Reactive Lymphocytes 4 % (0-10)
[2021-01-06 07:01] LABS: ALT (SGPT) 16 U/L (8-55); AST (SGOT) 16 U/L (5-34); Albumin 2.9 g/dL (3.4-4.8); Alkaline Phosphatase 131 U/L (40-110); Anion Gap 15 mmol/L (10-20); BUN (Urea Nitrogen) 17 mg/dL (9.8-20.1); Bilirubin, Total 0.5 mg/dL (0.2-1.2); Calc. Creatinine Clearance 15 mL/min (70-130); Carbon Dioxide 29 mmol/L (23-31); Chloride 98 mmol/L (98-107); Globulin 3.3 g/dL (2.4-3.5); Glucose 129 mg/dL (80-115); Potassium 3.8 mmol/L (3.5-5.1); Protein, Total 6.2 g/dL (5.8-8.1); Sodium 138 mmol/L (136-145)
[2021-01-06] MEDS: Ascorbic Acid 500 mg Chewable Tablet PO SCH (08:49)
[2021-01-06] MEDS: Zinc Sulfate 220 MG CAP PO SCH (08:49)
[2021-01-06] MEDS: Amlodipine 5 MG TAB PO SCH (08:49)
[2021-01-06] MEDS: Doxycycline 100 MG CAP PO SCH ×2 (08:49→21:09)
[2021-01-06] MEDS: Pantoprazole 40 MG VIAL IVP SCH ×2 (10:27→20:42)
[2021-01-06] MEDS: HumaLOG 300 UNITS/3 ML VIAL SC PRN (12:10)
--- NOTE | 2021-01-06 14:55 | PRG ---
DATE OF SERVICE: 01/06/2021 SUBJECTIVE: The patient noted with the following vital signs. OBJECTIVE: VITAL SIGNS: Afebrile, temperature 98, pulse 89, blood pressure 151/81, respiratory rate of 16, O2 saturations of 98%. HEENT: Unremarkable. CARDIOVASCULAR SYSTEM: First and second heart sounds were heard. RESPIRATORY SYSTEM: Clear to auscultation. DIGESTIVE SYSTEM: Revealed a benign abdomen. EXTREMITIES: No peripheral edema. SKIN: No new gross rash. LYMPHATICS: No peripheral lymphadenopathy. LABORATORY INVESTIGATION: Showed a hemoglobin of 11.2, creatinine 3.92. IMPRESSION: 1. End-stage renal disease, on dialysis. The patient was dialyzed yesterday. 2. Hypertension. The patient's hemodynamics is much improved now, status post hemodialysis with increased ultrafiltration. 3. Possible gastrointestinal bleed. Hemoglobin remained stable. PLAN: 1. The patient is to continue with current schedule of dialysis, therefore will be due for dialysis tomorrow. No indication for hemodialysis today. 2. Further management to be dependent on the clinical course. Job ID: [id number]
--- NOTE | 2021-01-06 18:26 | PDOC.HOSPP ---
- Subjective Encounter Date: 01/06/21 Encounter Time: 11:30 Subjective: Patient is seen for follow-up regarding sepsis. She reports feeling better today. She looks forward to going home soon. - Objective Vital Signs & Weight: Vital Signs (12 hours) Temp Pulse Resp BP BP Pulse Ox 01/06/21 12:00 20 98 01/06/21 08:50 98 01/06/21 08:49 89 151/81 H 01/06/21 07:09 98.0 F 89 16 151/81 H 98 Weight Admit Weight 149 lb 14.629 oz Weight 149 lb 14.629 oz I&O: 01/05/21 01/06/21 01/07/21 06:59 06:59 06:59 Intake Total 1080 300 500 Balance 1080 300 500 Result Diagrams: 01/06/21 06:18 01/06/21 06:18 Additional Labs: Accuchecks 01/06/21 01/06/21 01/06/21 15:48 11:35 04:47 POC Glucose 145 H 173 H 146 H I reviewed patient's labs and MAR Hospitalist ROS - Review of Systems Cardiovascular: denies: chest pain, palpitations, orthopnea, paroxysmal noc. dyspnea, edema, light headedness Gastrointestinal: denies: nausea, vomiting, abdominal pain, diarrhea, constipation, melena, hematochezia Genitourinary: denies: dysuria, frequency, incontinence, hematuria, retention - Medication Medications: Active Medications Generic Name Dose Route Start Last Admin Trade Name Freq PRN Reason Stop Dose Admin Acetaminophen 650 mg 12/29/20 20:58 01/05/21 21:30 Acetaminophen 325 Mg Tab PO 650 mg Q4H PRN Administration Headache/Fever/Mild Pain (1-3) Amlodipine Besylate 5 mg 01/02/21 09:00 01/06/21 08:49 Amlodipine 5 Mg Tab PO 5 mg DAILY MAXIMILIANO Administration Ascorbic Acid 1,000 mg 12/30/20 09:00 01/06/21 08:49 Ascorbic Acid 500 Mg Chewable Tablet PO 1,000 mg DAILY MAXIMILIANO Administration Clonidine 0.1 mg 01/05/21 16:50 01/05/21 17:03 Clonidine 0.1 Mg Tab PO 0.1 mg Q4H PRN Administration SBP Greater Than 170 Doxycycline Hyclate 100 mg 12/30/20 21:00 01/06/21 08:49 Doxycycline 100 Mg Cap PO 100 mg BID MAXIMILIANO Administration Insulin Human Lispro 0 units 12/29/20 21:54 01/06/21 12:10 Humalog 300 Units/3 Ml Vial SC 2 unit .MILD SLIDING SCALE PRN Administration Mild Correctional Scale Insulin Human Lispro 0 units 12/29/20 21:54 12/29/20 22:57 Humalog 300 Units/3 Ml Vial SC 4 unit .BEDTIME SLIDING SC PRN Administration Bedtime Correctional Scale Labetalol HCl 10 mg 01/04/21 14:52 01/05/21 14:29 Labetalol Hcl 100 Mg/20 Ml Vial SLOW IVP 10 mg Q4H PRN Administration SBP Greater Than 180 Levofloxacin 750 mg 01/02/21 06:00 01/06/21 05:21 Levofloxacin 750 Mg Tab PO 750 mg 0600 MAXIMILIANO Administration Lidocaine HCl 15 ml 01/04/21 14:00 01/04/21 20:40 Lidocaine Viscous Tomeka 2% 15 Ml Ud Cup SSP 15 ml Q6H PRN Administration Mouth Irritation Ondansetron HCl 4 mg 12/29/20 20:58 01/05/21 15:38 Ondansetron Pf 4 Mg/2 Ml Vial IVP 4 mg Q6H PRN Administration Nausea/Vomiting Pantoprazole Sodium 40 mg 01/01/21 21:00 01/06/21 10:27 Pantoprazole 40 Mg Vial IVP 40 mg Q12HR MAXIMILIANO Administration Promethazine HCl 12.5 mg 12/31/20 13:56 01/02/21 12:20 Promethazine Hcl 6.25 Mg/5 Ml Syrup PO 12.5 mg Q6H PRN Administration Nausea/Vomiting Sodium Chloride 10 ml 12/29/20 20:58 01/05/21 21:30 Flush - Normal Saline 10 Ml Syringe IVF 10 ml Q12HR PRN Administration Saline Flush Sodium Chloride 10 ml 01/01/21 13:30 01/05/21 21:30 Sodium Chloride 0.9% (Pf) 10 Ml Vial FS 10 ml PRN PRN Administration RECONSTITUTION Zinc Sulfate 220 mg 12/30/20 09:00 01/06/21 08:49 Zinc Sulfate 220 Mg Cap PO 220 mg DAILY MAXIMILIANO Administration Hospitalist Exam Vitals: Vital Signs (12 hours) Temp Pulse Resp BP BP Pulse Ox 01/06/21 12:00 20 98 01/06/21 08:50 98 01/06/21 08:49 89 151/81 H 01/06/21 07:09 98.0 F 89 16 151/81 H 98 Weight Admit Weight 149 lb 14.629 oz Weight 149 lb 14.629 oz General Appearance: awake alert ENT: normocephalic atraumatic Neck: supple Heart: RRR Respiratory: CTAB Gastrointestinal: soft, non-tender Skin: no rashes Psychiatric: normal affect, normal behavior Hosp A/P - Plan Sepsis secondary to E coli bacteremia -Change levofloxacin dose to 250 mg every morning. -Etiology of E. coli bacteremia is unclear. -Appreciate ID service input. GI bleed -Hemoglobin stable. -Patient is on PPI Anemia - stable Transaminitis - improving COVID pneumonia - currently a symptomatic with no respiratory symptoms. Will hold off on steroids. ESRD -Nephrology service following for maintenance dialysis. Leukocytosis -resolved Hypokalemia - resolved Likely home in 24 to 48 hours with home health.
[2021-01-06] MEDS: Sodium Chloride 0.9% (PF) 10 ML VIAL FS PRN (20:42)
[2021-01-06] MEDS: Acetaminophen 325 MG TAB PO PRN (20:43)
[2021-01-06 20:51] LABS: SARS-CoV-2 IgG Ab Reactive (NonReactive); SARS-CoV-2 IgG Index 7.34 S/CO (< 1.40)
--- NOTE | 2021-01-06 22:26 | CON ---
DATE OF CONSULTATION: 01/06/2021 HISTORY OF PRESENT ILLNESS: Ms. Mariscal is a 65-year-old woman with history of dialysis-dependent end-stage renal disease, type 2 diabetes mellitus, and recent bariatric surgery consisting of gastric sleeve. The patient was admitted with approximately one month history of intractable nausea and emesis. She denies any significant associated abdominal pain. She denies any fevers or chills. Workup in this hospitalization has included gallbladder ultrasound obtained on 12/30/2020, which was remarkable for biliary sludge with normal common bile duct size of 5 mm in diameter for this patient's age. There was no pericholecystic fluid or gallstones present. The patient had also undergone an MRI of the abdomen on 01/03/2021, which revealed no choledocholithiasis. Note that the patient on admission was found with elevated LFTs, which has since normalized. At the time of my evaluation, the patient denies any active nausea or vomiting, though she recalls intolerance to even clear liquids over the last 24 hours. PAST MEDICAL HISTORY: Pertinent for type 2 diabetes mellitus; morbid obesity; end-stage renal disease, on hemodialysis through right upper extremity AV graft. She also has a history of colon cancer that required surgery. SOCIAL HISTORY: The patient denies any cigarette smoking, ethanol, or illicit drug abuse. FAMILY HISTORY: Noncontributory for this patient's age. ALLERGIES: TO LISINOPRIL. REVIEW OF SYSTEMS: Ten-point review of systems is essentially unremarkable except as stated in past medical history and chief complaint. PHYSICAL EXAMINATION: GENERAL: Reveals a 65-year-old normally-developed woman, who is otherwise coherent, interactive, and appears stated age. The patient is alert and oriented x3, appears to be in no acute distress at the time of my evaluation. VITAL SIGNS: Include blood pressure 151/81, pulse 89, respiratory rate is 16, temperature 98 degrees Fahrenheit, and oxygen saturation 98% on room air. HEENT: Reveals normocephalic and atraumatic. She has no scleral icterus present. HEART: Reveals regular rate and rhythm. LUNGS: Clear to auscultation bilaterally. Breathing regular and nonlabored. ABDOMEN: Soft and obese, but nontender to palpation. Recent incisional scars from the bariatric surgery healed. Liver and spleen, nonpalpable below costal margin. NEUROLOGIC: Reveals no focal deficits present. LABORATORY FINDINGS: Today include a CBC with 5300 white blood cells, hemoglobin and hematocrit 11.2 and 35.8 respectively. Platelet count is 131,000. Metabolic profile; sodium 138, potassium 3.8, chloride is 98, bicarb is 29, BUN 17, creatinine is 3.92, glucose 129. AST and ALT normal at 16 and 16 respectively. Alkaline phosphatase is 131, total bilirubin is normal at 0.5. Note that microbiology obtained on 12/29 on admission was pertinent for E coli bacteremia, although urinalysis at that time was negative. IMPRESSION: Recent E coli bacteremia with intractable nausea, vomiting, and biliary sludge. I suspect the recent E coli bacteremia is likely secondary to acalculous cholecystitis though resolving. RECOMMENDATIONS: As the patient is unable to tolerate diet, I suspect that the laparoscopic cholecystectomy to treat this chronic acalculous cholecystitis may resolve her problem. To this end, I have discussed with the patient of the risks and benefits of the proposed surgery to include, but not limited to bleeding, infection, injury to bile duct or surrounding structures. The patient indicates understanding of information provided. I have answered her questions. I did offer her an option of conservative management expecting that maybe with bland diet, symptoms may surinder. The patient has elected to proceed with surgery. She was diagnosed with COVID-19, although she is asymptomatic at this time. I have discussed the above with Anesthesia, who has deemed appropriate to bring the patient to surgery for laparoscopic cholecystectomy planned for tomorrow. Thank you again, Dr. Castillo for allowing me the opportunity to participate in the care of this patient. Job ID: [id number] [facility]
[2021-01-07 07:23] LABS: #Eosinphils 0.1 thou/uL (0.0-0.7); #Lymphocytes 3.2 thou/uL (1.20-3.40); #Monocytes 0.7 thou/uL (0.11-0.59); #Neutrophils 5.8 thou/uL (1.40-6.50); %Basophils 0.5 % (0.0-1.0); %Eosinophils 0.7 % (0.0-10.0); %Lymphocytes 32.9 % (21.0-51.0); %Monocytes 6.9 % (0.0-10.0); %Neutrophils 59.1 % (42.0-75.0); Hemoglobin 11.4 g/dL (12.0-16.0); Mean Corpuscular HGB CONC 30.9 g/dL (32.0-36.0); Mean Corpuscular Hemoglobin 29.2 pg (27.0-31.0); Mean Corpuscular Volume 94.5 fL (78.0-98.0); Mean Platelet Volume 9.9 fL (7.4-10.4); Platelet Count 182 thou/uL (130-400); RBC Distribution Width 16.1 % (11.5-14.5); White Blood Cell (WBC) Count 9.8 thou/uL (4.8-10.8)
[2021-01-07 07:41] LABS: ALT (SGPT) 15 U/L (8-55); AST (SGOT) 17 U/L (5-34); Albumin 3.1 g/dL (3.4-4.8); Alkaline Phosphatase 141 U/L (40-110); Anion Gap 20 mmol/L (10-20); BUN (Urea Nitrogen) 32 mg/dL (9.8-20.1); Bilirubin, Total 0.5 mg/dL (0.2-1.2); Calc. Creatinine Clearance 11 mL/min (70-130); Calcium 9.8 mg/dL (7.8-10.44); Carbon Dioxide 23 mmol/L (23-31); Chloride 99 mmol/L (98-107); Globulin 3.7 g/dL (2.4-3.5); Glucose 140 mg/dL (80-115); Magnesium 1.9 mg/dL (1.6-2.6); Phosphorus 4.3 mg/dL (2.3-4.7); Potassium 4.3 mmol/L (3.5-5.1); Protein, Total 6.8 g/dL (5.8-8.1); Sodium 138 mmol/L (136-145)
[2021-01-07 09:00] LABS: INR-International Normal Ratio 1.1; PTT 38.9 sec (22.9-36.1); Prothrombin Time 14.6 sec (12.0-14.7)
[2021-01-07] MEDS: Doxycycline 100 MG CAP PO SCH ×2 (09:00→20:02)
[2021-01-07] MEDS ORDERED: Rocuronium Bromide 10 MG/ML (10ML VIAL) ONE (09:19)
[2021-01-07] MEDS ORDERED: Glycopyrrolate 0.2 MG/ML 5 ML SYRINGE ONE (09:19)
[2021-01-07] MEDS ORDERED: PHENYLEPHRINE-NS 100 MCG/ML 10 ML SYRINGE ONE (09:19)
[2021-01-07] MEDS ORDERED: Lidocaine 1% PF 5 ML VIAL ONE (09:19)
[2021-01-07] MEDS ORDERED: Ondansetron PF 4 MG/2 ML Vial ONE (09:19)
[2021-01-07] MEDS ORDERED: Dexamethasone 20 MG/5 ML VIAL ONE (09:19)
[2021-01-07] MEDS ORDERED: PROPOFOL 200 MG/20 ML VIAL ONE (09:19)
[2021-01-07] MEDS: Pantoprazole 40 MG VIAL IVP SCH ×2 (10:51→20:02)
[2021-01-07] MEDS: Ondansetron PF 4 MG/2 ML Vial IVP PRN ×2 (10:54→18:08)
[2021-01-07] MEDS: Ascorbic Acid 500 mg Chewable Tablet PO SCH (11:00)
[2021-01-07] MEDS: Zinc Sulfate 220 MG CAP PO SCH (11:00)
[2021-01-07] MEDS: Amlodipine 5 MG TAB PO SCH (11:00)
[2021-01-07] MEDS ORDERED: Bupivacaine 0.25% HCL 30 ML VIAL ONE ×2 (11:16→13:13)
[2021-01-07] MEDS ORDERED: Iothalamate Meglumine 60% 50 ML VIAL FS ONE (11:16)
[2021-01-07] MEDS ORDERED: ePHEDrine 50 MG/ML VIAL ONE (11:16)
[2021-01-07] MEDS ORDERED: EPINEPHrine 1 MG/ML AMP ONE (11:17)
[2021-01-07] MEDS ORDERED: Lidocaine 2% Jelly 5 ML TUBE ONE (12:12)
[2021-01-07] MEDS ORDERED: Fentanyl 100 MCG/2 ML VIAL ONE (12:12)
[2021-01-07] MEDS ORDERED: Midazolam HCl 2 mg/2 ml Vial ONE (12:12)
[2021-01-07] MEDS ORDERED: SUGAMMADEX SODIUM 200 MG/2 ML VIAL ONE (14:16)
[2021-01-07] MEDS ORDERED: Promethazine HCl 25 MG/ML VIAL SLOW IVP PRN (15:05)
[2021-01-07] MEDS ORDERED: Ondansetron HCl/PF 4 MG/2 ML Vial IVP PRN (15:05)
[2021-01-07] MEDS ORDERED: Promethazine HCl 25 MG/ML VIAL IM PRN (15:05)
--- NOTE | 2021-01-07 15:13 | PRG ---
DATE OF SERVICE: 01/07/2021 OBJECTIVE: VITAL SIGNS: The patient noted with the following vital signs; afebrile, temperature 98, pulse 96, respiratory rate of 20, O2 saturations of 97%, blood pressure 109/58. HEENT: Unremarkable. CARDIOVASCULAR SYSTEM: First and second heart sounds were heard. RESPIRATORY SYSTEM: Clear to auscultation. DIGESTIVE SYSTEM: Revealed a benign abdomen with positive bowel sounds. EXTREMITIES: No peripheral edema. SKIN: No new gross rash. LYMPHATICS: No peripheral lymphadenopathy. LABORATORY RESULTS: Showed a white count of 9.8, hemoglobin 11.4. Chemistry showed a creatinine of 5.56. IMPRESSION: 1. End-stage renal disease, on dialysis. Due for dialysis today. 2. Acalculous cholecystitis. 3. Escherichia coli bacteremia, possibly related to the biliary pathology. 4. Hypertension, much improved. 5. COVID infection. PLAN: 1. The patient to undergo dialysis today in accordance with the schedule prior to proceeding for possible cholecystectomy. 2. Further management to be dependent on the clinical course. Job ID: [id number]
--- NOTE | 2021-01-07 16:55 | PDOC.HOSPP ---
- Subjective Encounter Date: 01/07/21 Encounter Time: 10:30 Subjective: Patient seen for follow-up regarding sepsis. Denies any new complaints. Going for cholecystectomy later. - Objective Vital Signs & Weight: Vital Signs (12 hours) Temp Pulse Resp BP BP Pulse Ox 01/07/21 15:49 97.3 F L 79 20 137/83 100 01/07/21 11:37 98 F 96 20 109/56 L 97 01/07/21 11:01 98.3 F 105 H 18 123/56 L 97 01/07/21 11:00 94 01/07/21 10:22 98 F 94 20 96/54 L 97 01/07/21 07:50 97 Weight Admit Weight 149 lb 14.629 oz Weight 149 lb 14.629 oz I&O: 01/06/21 01/07/21 01/08/21 06:59 06:59 06:59 Intake Total 300 500 700 Output Total 1500 Balance 300 500 -800 Result Diagrams: 01/07/21 07:09 01/07/21 07:09 Additional Labs: Accuchecks 01/07/21 01/07/21 01/06/21 15:44 05:52 21:03 POC Glucose 177 H 119 H 161 H Labs and MAR reviewed by nv Hospitalist ROS - Review of Systems Cardiovascular: denies: chest pain, palpitations, orthopnea, paroxysmal noc. dyspnea, edema, light headedness Gastrointestinal: denies: nausea, vomiting, abdominal pain, diarrhea, constipation, melena, hematochezia - Medication Medications: Active Medications Generic Name Dose Route Start Last Admin Trade Name Freq PRN Reason Stop Dose Admin Acetaminophen 650 mg 12/29/20 20:58 01/06/21 20:43 Acetaminophen 325 Mg Tab PO 650 mg Q4H PRN Administration Headache/Fever/Mild Pain (1-3) Amlodipine Besylate 5 mg 01/02/21 09:00 01/07/21 11:00 Amlodipine 5 Mg Tab PO Not Given DAILY MAXIMILIANO Ascorbic Acid 1,000 mg 12/30/20 09:00 01/07/21 11:00 Ascorbic Acid 500 Mg Chewable Tablet PO Not Given DAILY MAXIMILIANO Clonidine 0.1 mg 01/05/21 16:50 01/05/21 17:03 Clonidine 0.1 Mg Tab PO 0.1 mg Q4H PRN Administration SBP Greater Than 170 Doxycycline Hyclate 100 mg 12/30/20 21:00 01/07/21 09:00 Doxycycline 100 Mg Cap PO Not Given BID MAXIMILIANO Insulin Human Lispro 0 units 12/29/20 21:54 01/06/21 12:10 Humalog 300 Units/3 Ml Vial SC 2 unit .MILD SLIDING SCALE PRN Administration Mild Correctional Scale Insulin Human Lispro 0 units 12/29/20 21:54 12/29/20 22:57 Humalog 300 Units/3 Ml Vial SC 4 unit .BEDTIME SLIDING SC PRN Administration Bedtime Correctional Scale Labetalol HCl 10 mg 01/04/21 14:52 01/05/21 14:29 Labetalol Hcl 100 Mg/20 Ml Vial SLOW IVP 10 mg Q4H PRN Administration SBP Greater Than 180 Levofloxacin 250 mg 01/07/21 06:00 01/07/21 05:20 Levofloxacin 250 Mg Tab PO 250 mg 0600 MAXIMILIANO Administration Lidocaine HCl 15 ml 01/04/21 14:00 01/04/21 20:40 Lidocaine Viscous Tomeka 2% 15 Ml Ud Cup SSP 15 ml Q6H PRN Administration Mouth Irritation Ondansetron HCl 4 mg 12/29/20 20:58 01/07/21 10:54 Ondansetron Pf 4 Mg/2 Ml Vial IVP 4 mg Q6H PRN Administration Nausea/Vomiting Pantoprazole Sodium 40 mg 01/01/21 21:00 01/07/21 10:51 Pantoprazole 40 Mg Vial IVP 40 mg Q12HR MAXIMILIANO Administration Promethazine HCl 12.5 mg 12/31/20 13:56 01/02/21 12:20 Promethazine Hcl 6.25 Mg/5 Ml Syrup PO 12.5 mg Q6H PRN Administration Nausea/Vomiting Sodium Chloride 10 ml 12/29/20 20:58 01/07/21 10:51 Flush - Normal Saline 10 Ml Syringe IVF 10 ml Q12HR PRN Administration Saline Flush Sodium Chloride 10 ml 01/01/21 13:30 01/06/21 20:42 Sodium Chloride 0.9% (Pf) 10 Ml Vial FS 10 ml PRN PRN Administration RECONSTITUTION Zinc Sulfate 220 mg 12/30/20 09:00 01/07/21 11:00 Zinc Sulfate 220 Mg Cap PO Not Given DAILY [facility] Hospitalist Exam Vitals: Vital Signs (12 hours) Temp Pulse Resp BP BP Pulse Ox 02/24/21 15:49 97.3 F L 79 20 137/83 100 01/07/21 11:37 98 F 96 20 109/56 L 97 01/07/21 11:01 98.3 F 105 H 18 123/56 L 97 01/07/21 11:00 94 01/07/21 10:22 98 F 94 20 96/54 L 97 01/07/21 07:50 97 Weight Admit Weight 149 lb 14.629 oz Weight 149 lb 14.629 oz General Appearance: awake alert ENT: normocephalic atraumatic Neck: supple Heart: RRR Respiratory: CTAB Gastrointestinal: soft Skin: no rashes Psychiatric: normal affect Hosp A/P - Plan Sepsis secondary to E coli bacteremia -Change levofloxacin dose to 250 mg every morning. -Patient to have cholecystectomy today for acalculous cholecystitis. GI bleed -Continue PPI Anemia - stable Transaminitis - improving COVID pneumonia - currently a symptomatic with no respiratory symptoms. ESRD -Nephrology service following for maintenance dialysis. Leukocytosis -resolved Hypokalemia - resolved Likely home in 24 to 48 hours with home health.
[2021-01-07] MEDS ORDERED: traMADol HCl 50 MG TAB PO PRN (17:03)
[2021-01-07] MEDS: HumaLOG 300 UNITS/3 ML VIAL SC PRN (17:29)
[2021-01-07] MEDS: traMADol HCl 50 MG TAB PO SCH ×2 (17:30→22:51)
[2021-01-07] MEDS: Acetaminophen 325 MG TAB PO SCH ×3 (17:32→22:51)
--- NOTE | 2021-01-07 22:22 | OP ---
DATE OF PROCEDURE: 01/07/2021 PREOPERATIVE DIAGNOSES: 1. COVID-19. 2. Chronic cholecystitis, status post Escherichia coli bacteremia. POSTOPERATIVE DIAGNOSES: 1. COVID-19. 2. Chronic cholecystitis, status post Escherichia coli bacteremia. PROCEDURE PERFORMED: Laparoscopic cholecystectomy. ANESTHESIA: General endotracheal. ESTIMATED BLOOD LOSS: 10 mL. FLUIDS GIVEN: 600 mL crystalloids. COUNTS: Sponge and instrument counts were verified as correct x2. COMPLICATIONS: None apparent at the time of operation. INDICATIONS FOR OPERATION: A 65-year-old woman, 8 months status post bariatric surgery, presented with intractable nausea and vomiting of 1 month's duration. The patient has a history of end-stage chronic kidney disease. Her nausea has failed to resolve with conservative management. LFTs on admission were elevated since normalized. She was also found with gram-negative bacteremia, which was proven to be E coli. Urinalysis was unremarkable. The biliary source of infection was suspected, for which the patient was brought to the operating room today for cholecystectomy. Findings are consistent with a markedly distended gallbladder in the usual anatomic location partially encased by omental adhesions. The gallbladder contained dark black thick sludge. DESCRIPTION OF PROCEDURE: Informed consent was obtained from the patient, who was brought to the operating room and placed in supine position. Following general anesthesia, abdomen was sterilely prepped and draped in usual fashion. The skin above the umbilicus was infiltrated with 0.25% Marcaine with epinephrine. A 1 cm vertical incision was made here using an 11 scalpel. Umbilical stalk was grasped with Ben and elevated. Veress needle was inserted through this incision, placed in the peritoneal cavity, through which the abdomen was insufflated with 3.5 L of CO2 gas. Intraabdominal pressure was noted at 2 mmHg. Following abdominal insufflation, Veress needle was removed, and a 5 mm trocar introduced using a Visiport under laparoscopy. Laparoscopy confirmed proper placement of the port, no injuries to underlying structures. Additional laparoscopy revealed the gallbladder in the usual anatomic location partially encased by omental adhesions. Under direct laparoscopy, 12 mm epigastric and two 5 mm right lateral subcostal ports were placed after the overlying skin infiltrated with 0.25% Marcaine with epinephrine, and appropriate incision was made. The patient was placed in a reverse Trendelenburg position, rotated to her left. I introduced Prestige grasper through the right lateral subcostal port, grasping the fundus of the gallbladder, which was elevated cephalad. Omental adhesions were bluntly taken down from the remainder of the gallbladder. Bleeding points controlled with cautery. A second Prestige grasper introduced through the right medial subcostal port, grasping the Sujata's pouch, which was retracted laterally. Peritoneum of the gallbladder infundibulum was opened using [place] dissector. The cystic artery and duct were individually dissected free from surrounding structures. Critical view of the triangle obtained. The cystic duct was small. Therefore, we decided not to proceed with intraoperative cholangiogram, which we originally planned. The duct was divided between clips, applying 2 clips proximally and 1 clip at the junction of the cystic duct and gallbladder. Cystic artery divided between clips in a similar fashion. The gallbladder itself was removed from the liver bed using cautery with good hemostasis. The gallbladder was delivered off the abdominal cavity using an EndoCatch. Operative site was inspected for good hemostasis. There was just minor oozing of venous blood in the gallbladder fossa. A piece of Fibrillar was used to achieve immediate hemostasis. Finding, no other pathology, laparoscopy was terminated. Fascia of the epigastric port was closed using 0 Vicryl suture and Endoclosure device under laparoscopy. The abdomen was desufflated. All ports and instruments were removed and accounted for. Skin incision was closed using 4-0 Monocryl suture in subcuticular fashion. Dermabond was applied over incisional closure. The patient tolerated the operation without any apparent complication and was returned to the recovery room in satisfactory condition. Job ID: [id number]
[2021-01-08] MEDS: Acetaminophen 325 MG TAB PO SCH ×2 (05:15→12:30)
[2021-01-08] MEDS: traMADol HCl 50 MG TAB PO SCH ×2 (05:16→12:31)
[2021-01-08 06:19] LABS: #Lymphocytes 1.3 thou/uL (1.20-3.40); #Monocytes 0.5 thou/uL (0.11-0.59); #Neutrophils 9.6 thou/uL (1.40-6.50); %Basophils 0.2 % (0.0-1.0); %Eosinophils 0.3 % (0.0-10.0); %Lymphocytes 11.4 % (21.0-51.0); %Monocytes 4.6 % (0.0-10.0); %Neutrophils 83.5 % (42.0-75.0); Hemoglobin 11.3 g/dL (12.0-16.0); Mean Corpuscular HGB CONC 31.8 g/dL (32.0-36.0); Mean Corpuscular Hemoglobin 30.2 pg (27.0-31.0); Mean Corpuscular Volume 95.1 fL (78.0-98.0); Mean Platelet Volume 9.8 fL (7.4-10.4); Platelet Count 137 thou/uL (130-400); RBC Distribution Width 15.9 % (11.5-14.5); Red Blood Cell (RBC) Count 3.75 mill/uL (4.20-5.40); White Blood Cell (WBC) Count 11.5 thou/uL (4.8-10.8)
[2021-01-08 06:35] LABS: ALT (SGPT) 14 U/L (8-55); AST (SGOT) 34 U/L (5-34); Albumin 3.1 g/dL (3.4-4.8); Alkaline Phosphatase 127 U/L (40-110); Anion Gap 16 mmol/L (10-20); BUN (Urea Nitrogen) 23 mg/dL (9.8-20.1); Bilirubin, Direct 0.2 mg/dL (0.1-0.3); Bilirubin, Total 0.4 mg/dL (0.2-1.2); Calc. Creatinine Clearance 16 mL/min (70-130); Calcium 9.1 mg/dL (7.8-10.44); Carbon Dioxide 27 mmol/L (23-31); Chloride 99 mmol/L (98-107); Glucose 133 mg/dL (80-115); Magnesium 1.9 mg/dL (1.6-2.6); Phosphorus 4.5 mg/dL (2.3-4.7); Potassium 4.1 mmol/L (3.5-5.1); Protein, Total 6.6 g/dL (5.8-8.1); Sodium 138 mmol/L (136-145)
[2021-01-08] MEDS: Doxycycline 100 MG CAP PO SCH (09:18)
[2021-01-08] MEDS: Zinc Sulfate 220 MG CAP PO SCH (09:18)
[2021-01-08] MEDS: Amlodipine 5 MG TAB PO SCH (09:18)
[2021-01-08] MEDS: Ascorbic Acid 500 mg Chewable Tablet PO SCH (09:19)
[2021-01-08] MEDS: Pantoprazole 40 MG VIAL IVP SCH (09:19)
--- NOTE | 2021-01-08 12:57 | PDOC.DS.DS ---
Provider Date of Admission: 12/29/20 19:51 Date of Discharge: 01/08/21 Admitting Provider: Fam Turner MD Consultations: Gastroentrology (Dr. Castillo), General Surgery (Dr. Castellon), Infectious Disease (Dr. Singleton), Nephrology (Dr. Nguyen) Primary Care Physician: [facility] Course Hospital Course: Discharge diagnosis: 1. Bacteremia 2. Acalculous cholecystitis 3. COVID-19 infection 4. End-stage renal disease on dialysis 5. Hyponatremia 6. Abnormal liver function tests Hospital course: Patient is a pleasant 60-year-old lady who was admitted to the hospital on December 29, 2020 for persistent nausea and vomiting. She also had diarrhea at the time of admission. COVID-19 test was positive. She also had abnormal liver function tests. CT angiogram of the chest did not show any evidence of pulmonary embolism. She had patchy infiltrate in the peripheral left upper lobe along the chest wall corresponding to area of density seen on chest film. Abd ominal ultrasound showed large amount of sludge within the gallbladder which is mildly distended. No definitive stones were identified. 2 out of 2 blood cultures were positive for E. coli. She was seen by gastroenterology service for suspicion of lower GI bleed. However, her hemoglobin was stable during this hospitalization. She was advised to follow-up with her rivet tosser at [facility]. Because of E. coli bacteremia, she had MRI of the abdomen, which did not show any choledocholithiasis. She had a 3.9 mm T2 hyperintense cystic structure within the ventral pancreatic head parenchyma. Radiologist recommends pancreatic protocol specific MRI of the abdomen in 6 months. Because there was no clear focus of infection for the bacteremia, infectious disease service was consulted. It was felt that the likely source of infection was biliary tract. General surgery service was consulted, patient underwent laparoscopic cholecystectomy on January 07. She is being discharged home in a stable condition. Her Covid immunoglobulin G antibody was elevated at 7.34. During this hospitalization, she was also seen by nephrology service for maintenance dialysis. Many thanks for allowing me to participate in your patient's care. Please feel free to contact me with any questions or concerns. Discharge destination: Home Total amount of time spent coordinating this discharge: 33 minutes Resuscitation Status: 12/29/20 20:58 Resuscitation Status Routine Co-Sign Provider: Resuscitation Status: FULL: Full Resuscitation Lab Results: 01/08/21 06:08 01/08/21 06:08 Abnormal Lab Results - Last 48 hrs 01/07/21 07:09: BUN 32 H, Creatinine 5.56 H, Alkaline Phosphatase 141 H, Albumin 3.1 L, Globulin 3.7 H, Albumin/Globulin Ratio 0.8 L 01/07/21 07:09: RBC 3.90 L, Hgb 11.4 L, MCHC 30.9 L, RDW 16.1 H, Monocytes # 0.7 H 01/07/21 08:13: APTT 38.9 H 01/08/21 06:08: BUN 23 H, Creatinine 3.69 H, Alkaline Phosphatase 127 H, Albumin 3.1 L 01/08/21 06:08: WBC 11.5 H, RBC 3.75 L, Hgb 11.3 L, Hct 35.7 L, MCHC 31.8 L, RDW 15.9 H, Neutrophils % 83.5 H, Lymphocytes % 11.4 L, Neutrophils # 9.6 H Microbiology - Entire Visit 12/29/20 16:41 Venous blood - Right Hand Blood Culture - Final Escherichia coli 01/01/21 14:14 Urine Straight Catheter Urine Culture - Final NO GROWTH AT 48 HOURS 12/29/20 04:00 Stool Stool Culture - Final 12/29/20 04:00 Stool Escherichia coli 0157 Culture - Final 01/01/21 12:20 Stool - Liquid Stool Occult Blood (CORDELIA) - Final 12/29/20 16:41 Venous blood - Left Arm Blood Culture - Final Escherichia coli 12/29/20 04:00 Stool Stool Lactoferrin - Final 12/29/20 04:00 Stool Campylobacter Antigen Assay - Final 12/29/20 04:00 Stool Shiga Toxin Test - Final 12/29/20 13:45 Stool - Pending C. difficile GDH Antigen & Toxins - Final Vitals: Vital Signs (12 hours) Temp Pulse Resp BP Pulse Ox 01/08/21 08:00 98.3 F 91 18 152/74 H 100 Weight Admit Weight 149 lb 14.629 oz Weight 149 lb 14.629 oz Physical Exam: The patient was seen and examined on the day of discharge. Patient denies chest pain or shortness of breath. Vital signs are stable. S1 and S2 are heard. Lungs are clear to auscultation bilaterally. Plan Prescriptions: traMADol HCl [Tramadol HCl] 50 mg PO Q8H PRN #15 tablet PRN Reason: Pain Home Medications: Medication Instructions Recorded Confirmed Type Benzonatate [Tessalon] 200 mg PO TID PRN 06/02/13 12/30/20 History Liothyronine Sodium [Cytomel] 5 mcg PO DAILY 06/02/13 12/30/20 History Pantoprazole [Protonix] 40 mg PO BID 06/02/13 12/30/20 History Sertraline HCl [Zoloft] 100 mg PO QAM 06/02/13 12/30/20 History Acetaminophen [Tylenol] 325 mg PO PRN PRN 03/17/18 12/30/20 History B,C/Ferrous Fum/FA/D3/Zinc Ox 1 tablet PO QPM 03/17/18 12/30/20 History [Prorenal Multivitamin Tablet] Cholecalciferol (Vitamin D3) 1,000 unit PO BID 03/17/18 12/30/20 History [Vitamin D] Topiramate 50 mg PO BID 03/17/18 12/30/20 History Ondansetron HCl [Zofran] 4 mg PO Q6HR PRN 04/05/18 12/30/20 History Cyclobenzaprine HCl 5 mg PO BID 12/30/20 12/30/20 History Multivitamin With Minerals [Hair, 1 tablet PO DAILY 12/30/20 12/30/20 History Skin and Nails] Vitamin B Complex [B Complex] 1 tablet PO DAILY 12/30/20 12/30/20 History traMADol HCl [Tramadol HCl] 50 mg PO Q8H PRN #15 tablet 01/08/21 Rx Allergies: lisinopril Allergy (Verified 02/01/20 18:04) Referrals: Pardeep Nugyen MD [Active] - (FOR DIAYLSIS ) Parrish Castellon DO [Active] - ( DIRECTED ) HAILEY PAGAN & [Primary Care Provider] - 3 Days Disposition: HOME Quality CORE MEASURES:: N/A
--- NOTE | 2021-01-08 15:17 | PRG ---
DATE OF SERVICE: 01/08/2021 SUBJECTIVE: The patient is seen, feeling much better, noted with the following vital signs. OBJECTIVE: VITAL SIGNS: Afebrile, temperature 98.3, pulse 91, respiratory rate of 18, O2 saturation 100%, blood pressure . HEENT: Unremarkable. CARDIOVASCULAR SYSTEM: First and second heart sounds were heard. RESPIRATORY SYSTEM: Clear to auscultation. DIGESTIVE SYSTEM: Revealed a benign abdomen with positive bowel sounds. EXTREMITIES: No peripheral edema. SKIN: No new gross rash. LYMPHATICS: No peripheral lymphadenopathy. IMPRESSION: 1. End-stage renal disease, on hemodialysis. 2. Acalculous cholecystitis, status post laparoscopic cholecystectomy. 3. COVID infection. PLAN: 1. The patient is due for dialysis tomorrow. 2. Further management will be dependent on the clinical course. Job ID: [id number]
[2021-01-08] MEDS: HumaLOG 300 UNITS/3 ML VIAL SC PRN (16:54)
[2021-01-08 17:35] VITALS: BP 151/81; TEMP 97.7
== END 2021-01-08 17:25 | disposition home health service (06) | DRG 853 ==
LOC: ERS 15:08 → T4-A 19:51
PROVIDERS: ADMIT Student in an Organized Health Care Education/Training Program; ATTEND Internal Medicine
PROC: 8E0ZXY6 Isolation (ICD-10-PCS; 2020-12-29)
PROC: 5A1D70Z Performance of Urinary Filtration, Intermittent, Less than 6 Hours Per Day (ICD-10-PCS; 2020-12-31)
PROC: 0FT44ZZ Resection of Gallbladder, Percutaneous Endoscopic Approach (ICD-10-PCS; principal; 2021-01-07)
DX: A41.51 Sepsis due to Escherichia coli [E. coli] (principal); N18.6 End stage renal disease; U07.1 COVID-19; J12.82 Pneumonia due to coronavirus disease 2019; I13.2 Hypertensive heart and chronic kidney disease with heart failure and with stage 5 chronic kidney disease, or end stage renal disease; K92.2 Gastrointestinal hemorrhage, unspecified; E87.1 Hypo-osmolality and hyponatremia; K81.1 Chronic cholecystitis; I50.9 Heart failure, unspecified; E11.22 Type 2 diabetes mellitus with diabetic chronic kidney disease; E11.319 Type 2 diabetes mellitus with unspecified diabetic retinopathy without macular edema; E66.01 Morbid (severe) obesity due to excess calories; D69.6 Thrombocytopenia, unspecified; E87.6 Hypokalemia; D63.1 Anemia in chronic kidney disease; E86.0 Dehydration; F32.9 Major depressive disorder, single episode, unspecified; Z85.038 Personal history of other malignant neoplasm of large intestine; Z90.49 Acquired absence of other specified parts of digestive tract; Z90.710 Acquired absence of both cervix and uterus; Z98.84 Bariatric surgery status; Z88.5 Allergy status to narcotic agent; Z88.8 Allergy status to other drugs, medicaments and biological substances; Z79.899 Other long term (current) drug therapy; Z99.2 Dependence on renal dialysis; Z68.20 Body mass index [BMI] 20.0-20.9, adult; Z79.4 Long term (current) use of insulin
CPT/HCPCS: 0240U; 36415; 36416; 70450; 71045; 71275; 74181; 76705; 80048; 80053; 80076; 81001; 82140; 82274; 82550; 82553; 82728; 83605; 83630; 83690; 83735; 83880; 84100; 84484; 85025; 85027; 85379; 85610; 85730; 86140; 86704; 86706; 86769; 86803; 86850; 86900; 86901; 87040; 87045; 87046; 87077; 87081; 87086; 87149; 87186; 87324; 87340; 87427; 87449; 88304; 90935; 93005; 96365; 96367; 96375; C9113; G0257; J0171; J0360; J0456; J0696; J1100; J1650; J1815; J2250; J2405; J2704; J3010; J3370; J3475; J3490; Q0169; Q9967; S0020

== ENCOUNTER 2023-06-30 18:19 | Inpatient (IN) | payer MEDICARE ==
[2023-06-30 18:55] LABS: #Monocytes 0.6 thou/uL (0.11-0.59); %Basophils 0.2 % (0.0-1.0); %Eosinophils 0.5 % (0.0-10.0); %Lymphocytes 14.9 % (21.0-51.0); %Monocytes 11.2 % (0.0-10.0); %Neutrophils 72.1 % (42.0-75.0); Hematocrit 31.1 % (36.0-47.0); Hemoglobin 9.9 g/dL (12.0-16.0); Mean Corpuscular HGB CONC 31.8 g/dL (32.0-36.0); Mean Corpuscular Hemoglobin 30.7 pg (27.0-31.0); Mean Corpuscular Volume 96.3 fl (78.0-98.0); Mean Platelet Volume 11.1 fL (7.4-10.4); Platelet Count 132 10x3/uL (130-400); Red Blood Cell (RBC) Count 3.23 mill/uL (4.20-5.40); White Blood Cell (WBC) Count 5.6 10x3/uL (4.8-10.8)
[2023-06-30 19:18] LABS: ALT (SGPT) 14 U/L (8-55); AST (SGOT) 16 U/L (5-34); Albumin 3.8 g/dL (3.4-4.8); Alkaline Phosphatase 82 U/L (40-110); Anion Gap 16 mmol/L (10-20); BUN (Urea Nitrogen) 45 mg/dL (9.8-20.1); Bilirubin, Total 0.5 mg/dL (0.2-1.2); Calc. Creatinine Clearance 0 mL/min (70-130); Calcium 9.2 mg/dL (7.8-10.44); Carbon Dioxide 29 mmol/L (23-31); Chloride 95 mmol/L (98-107); Estimated GFR 10; Globulin 3.2 g/dL (2.4-3.5); Glucose 251 mg/dL (80-115); Lipase 62 U/L (8-78); Potassium 5.9 mmol/L (3.5-5.1); Sodium 134 mmol/L (136-145)
[2023-06-30 19:22] LABS: Troponin I 0.018 ng/mL (< 0.028)
[2023-06-30] MEDS ORDERED: Acetaminophen 500 MG TAB ONE (19:31)
[2023-06-30 19:38] LABS: SARS-CoV-2 NAA Rapid Test DETECTED (NotDetected)
[2023-06-30] MEDS ORDERED: Acetaminophen 325 MG TAB PO PRN (20:54)
[2023-06-30] MEDS ORDERED: Acetaminophen 650 MG Suppository PR PRN (20:54)
[2023-06-30] MEDS ORDERED: Glucagon 1 MG/ML KIT IM PRN (22:08)
[2023-06-30] MEDS ORDERED: Dextrose 50% Abboject 50 ML SYRINGE SLOW IVP PRN (22:08)
[2023-06-30] MEDS ORDERED: Dextrose 5% in Water 1,000 ML IV PRN (22:08)
[2023-06-30] MEDS ORDERED: HumaLOG 300 UNITS/3 ML VIAL SC PRN (22:08)
[2023-06-30] MEDS ORDERED: Benzonatate 100 MG CAP PO PRN (22:38)
[2023-06-30 23:59] LABS: HBSAB Concentration Less than 8.00 mIU/mL; HBSAg Index 0.23 S/CO (0-0.99); Hep B Core Total Ab Non-Reactive (NonReactive); Hep B Core Total Index 0.11 S/CO (0-0.79); Hep B Surf AB Non-Reactive (NonReactive); Hep B Surf Ag Non-Reactive S/CO (NonReactive); Hep C IgG Ab Non-Reactive S/CO (NonReactive); Hep C Index 0.05 S/CO (0-0.79)
[2023-07-01 02:30] VITALS: BMI 24.5
[2023-07-01 05:02] LABS: Anion Gap 14 mmol/L (10-20); BUN (Urea Nitrogen) 23 mg/dL (9.8-20.1); Calc. Creatinine Clearance 19 mL/min (70-130); Calcium 8.8 mg/dL (7.8-10.44); Carbon Dioxide 22 mmol/L (23-31); Chloride 100 mmol/L (98-107); Estimated GFR 15; Glucose 234 mg/dL (80-115); Potassium 4.1 mmol/L (3.5-5.1); Sodium 132 mmol/L (136-145)
[2023-07-01 06:35] LABS: #Eosinphils 0.1 thou/uL (0.0-0.7); #Monocytes 0.6 thou/uL (0.11-0.59); #Neutrophils 3.3 thou/uL (1.40-6.50); %Basophils 0.4 % (0.0-1.0); %Eosinophils 1.2 % (0.0-10.0); %Lymphocytes 21.9 % (21.0-51.0); %Neutrophils 63.3 % (42.0-75.0); Hematocrit 34.8 % (36.0-47.0); Hemoglobin 10.9 g/dL (12.0-16.0); Mean Corpuscular HGB CONC 31.3 g/dL (32.0-36.0); Mean Corpuscular Hemoglobin 30.6 pg (27.0-31.0); Mean Corpuscular Volume 97.8 fl (78.0-98.0); Mean Platelet Volume 10.9 fL (7.4-10.4); Platelet Count 126 10x3/uL (130-400); Red Blood Cell (RBC) Count 3.56 mill/uL (4.20-5.40); White Blood Cell (WBC) Count 5.2 10x3/uL (4.8-10.8)
[2023-07-01] MEDS: Ascorbic Acid 500 mg Chewable Tablet PO SCH (08:41)
[2023-07-01] MEDS: guaiFENesin/DM ER PO SCH ×2 (08:42→21:31)
[2023-07-01] MEDS: Zinc Sulfate 220 MG CAP PO SCH (08:42)
[2023-07-01] MEDS: Cholecalciferol (Vitamin D3) 400 UNITS TAB PO SCH (08:42)
[2023-07-01] MEDS ORDERED: NIFEdipine XL 60 MG TAB PO SCH (12:30)
[2023-07-01] MEDS ORDERED: Cyclobenzaprine 10 MG TAB PO PRN (17:11)
[2023-07-01] MEDS ORDERED: Sertraline 100 MG TAB PO SCH (17:15)
[2023-07-01] MEDS: Carvedilol 6.25 MG TAB PO SCH (17:59)
[2023-07-01] MEDS ORDERED: QUEtiapine 25 MG TAB PO SCH (20:15)
[2023-07-01] MEDS: Benzonatate 100 MG CAP PO PRN (21:28)
[2023-07-01] MEDS: Melatonin 3 MG TAB PO PRN (21:31)
[2023-07-01] MEDS: Ondansetron PF 4 MG/2 ML Vial IVP PRN (21:32)
[2023-07-02 04:50] LABS: #Eosinphils 0.2 thou/uL (0.0-0.7); #Monocytes 0.7 thou/uL (0.11-0.59); #Neutrophils 2.6 thou/uL (1.40-6.50); %Basophils 0.4 % (0.0-1.0); %Eosinophils 3.2 % (0.0-10.0); %Lymphocytes 27.4 % (21.0-51.0); %Monocytes 14.4 % (0.0-10.0); %Neutrophils 53.6 % (42.0-75.0); Hematocrit 34.3 % (36.0-47.0); Hemoglobin 10.9 g/dL (12.0-16.0); Mean Corpuscular HGB CONC 31.8 g/dL (32.0-36.0); Mean Corpuscular Hemoglobin 30.6 pg (27.0-31.0); Mean Corpuscular Volume 96.3 fl (78.0-98.0); Mean Platelet Volume 10.9 fL (7.4-10.4); Platelet Count 121 10x3/uL (130-400); RBC Distribution Width 13.8 % (11.5-14.5); Red Blood Cell (RBC) Count 3.56 mill/uL (4.20-5.40); White Blood Cell (WBC) Count 4.9 10x3/uL (4.8-10.8)
[2023-07-02 05:12] LABS: Anion Gap 18 mmol/L (10-20); BUN (Urea Nitrogen) 24 mg/dL (9.8-20.1); CRP (Inflammatory) 4.64 mg/dL (= or < 0.5); Calc. Creatinine Clearance 18 mL/min (70-130); Calcium 9.9 mg/dL (7.8-10.44); Carbon Dioxide 28 mmol/L (23-31); Chloride 96 mmol/L (98-107); Estimated GFR 14; Glucose 204 mg/dL (80-115); Potassium 4.5 mmol/L (3.5-5.1); Sodium 137 mmol/L (136-145)
[2023-07-02] MEDS: Benzonatate 100 MG CAP PO PRN ×2 (06:19→21:09)
[2023-07-02] MEDS: Cholecalciferol (Vitamin D3) 400 UNITS TAB PO SCH (08:22)
[2023-07-02] MEDS: Sertraline 100 MG TAB PO SCH (08:22)
[2023-07-02] MEDS: Carvedilol 6.25 MG TAB PO SCH ×2 (08:22→17:35)
[2023-07-02] MEDS: NIFEdipine XL 60 MG TAB PO SCH (08:22)
[2023-07-02] MEDS: Ascorbic Acid 500 mg Chewable Tablet PO SCH (08:23)
[2023-07-02] MEDS: Zinc Sulfate 220 MG CAP PO SCH (08:23)
[2023-07-02] MEDS: guaiFENesin/DM ER PO SCH ×2 (08:23→21:10)
[2023-07-02] MEDS: HumaLOG 300 UNITS/3 ML VIAL SC PRN (17:38)
[2023-07-02] MEDS: Melatonin 3 MG TAB PO PRN (21:09)
[2023-07-03 05:44] LABS: #Eosinphils 0.2 thou/uL (0.0-0.7); #Monocytes 0.5 thou/uL (0.11-0.59); #Neutrophils 2.7 thou/uL (1.40-6.50); %Basophils 0.2 % (0.0-1.0); %Eosinophils 4.4 % (0.0-10.0); %Lymphocytes 31.1 % (21.0-51.0); %Monocytes 9.2 % (0.0-10.0); %Neutrophils 54.3 % (42.0-75.0); Hematocrit 30.2 % (36.0-47.0); Hemoglobin 9.6 g/dL (12.0-16.0); Mean Corpuscular HGB CONC 31.8 g/dL (32.0-36.0); Mean Corpuscular Hemoglobin 30.6 pg (27.0-31.0); Mean Corpuscular Volume 96.2 fl (78.0-98.0); Mean Platelet Volume 10.8 fL (7.4-10.4); Platelet Count 127 10x3/uL (130-400); RBC Distribution Width 13.7 % (11.5-14.5); Red Blood Cell (RBC) Count 3.14 mill/uL (4.20-5.40)
[2023-07-03] MEDS: Benzonatate 100 MG CAP PO PRN ×2 (05:44→21:04)
[2023-07-03] MEDS: Carvedilol 6.25 MG TAB PO SCH ×2 (05:44→16:37)
[2023-07-03] MEDS: HumaLOG 300 UNITS/3 ML VIAL SC PRN ×2 (05:49→19:07)
[2023-07-03 06:10] LABS: ALT (SGPT) 10 U/L (8-55); AST (SGOT) 13 U/L (5-34); Albumin 3.5 g/dL (3.4-4.8); Alkaline Phosphatase 66 U/L (40-110); Anion Gap 18 mmol/L (10-20); BUN (Urea Nitrogen) 49 mg/dL (9.8-20.1); Bilirubin, Total 0.5 mg/dL (0.2-1.2); Calc. Creatinine Clearance 13 mL/min (70-130); Calcium 9.1 mg/dL (7.8-10.44); Carbon Dioxide 27 mmol/L (23-31); Chloride 96 mmol/L (98-107); Estimated GFR 9; Globulin 2.9 g/dL (2.4-3.5); Glucose 175 mg/dL (80-115); Potassium 4.9 mmol/L (3.5-5.1); Protein, Total 6.4 g/dL (5.8-8.1); Sodium 136 mmol/L (136-145)
[2023-07-03] MEDS: Ascorbic Acid 500 mg Chewable Tablet PO SCH (09:18)
[2023-07-03] MEDS: Sertraline 100 MG TAB PO SCH (09:19)
[2023-07-03] MEDS: Zinc Sulfate 220 MG CAP PO SCH (09:19)
[2023-07-03] MEDS: NIFEdipine XL 60 MG TAB PO SCH (09:19)
[2023-07-03] MEDS: guaiFENesin/DM ER PO SCH ×2 (09:19→21:04)
[2023-07-03] MEDS: Cholecalciferol (Vitamin D3) 400 UNITS TAB PO SCH (09:19)
[2023-07-03] MEDS: Ondansetron PF 4 MG/2 ML Vial IVP PRN (10:36)
[2023-07-03] MEDS ORDERED: Diphenoxylate HCl/Atropine Tablet PO PRN (11:05)
[2023-07-03] MEDS: Ondansetron ODT 4 MG TAB PO PRN (21:04)
[2023-07-03] MEDS: Melatonin 3 MG TAB PO PRN (21:04)
[2023-07-04] MEDS: Carvedilol 6.25 MG TAB PO SCH ×2 (09:48→18:06)
[2023-07-04] MEDS: Zinc Sulfate 220 MG CAP PO SCH (09:48)
[2023-07-04] MEDS: guaiFENesin/DM ER PO SCH ×2 (09:49→21:36)
[2023-07-04] MEDS: Ascorbic Acid 500 mg Chewable Tablet PO SCH (09:49)
[2023-07-04] MEDS: Cholecalciferol (Vitamin D3) 400 UNITS TAB PO SCH (09:49)
[2023-07-04] MEDS: Benzonatate 100 MG CAP PO PRN (09:49)
[2023-07-04] MEDS: Sertraline 100 MG TAB PO SCH (09:49)
[2023-07-04] MEDS: NIFEdipine XL 60 MG TAB PO SCH (09:49)
[2023-07-04] MEDS: Ondansetron PF 4 MG/2 ML Vial IVP PRN (12:56)
[2023-07-05] MEDS: Ondansetron PF 4 MG/2 ML Vial IVP PRN (01:55)
[2023-07-05] MEDS: Cholecalciferol (Vitamin D3) 400 UNITS TAB PO SCH (08:32)
[2023-07-05] MEDS: Zinc Sulfate 220 MG CAP PO SCH (08:32)
[2023-07-05] MEDS: Carvedilol 6.25 MG TAB PO SCH (08:32)
[2023-07-05] MEDS: Ascorbic Acid 500 mg Chewable Tablet PO SCH (08:32)
[2023-07-05] MEDS: NIFEdipine XL 60 MG TAB PO SCH (08:33)
[2023-07-05] MEDS: Sertraline 100 MG TAB PO SCH (08:33)
[2023-07-05] MEDS: guaiFENesin/DM ER PO SCH (08:33)
[2023-07-05] MEDS: Ondansetron ODT 4 MG TAB PO PRN (08:36)
[2023-07-05 09:32] VITALS: BP 197/93; TEMP 97.9
== END 2023-07-05 10:30 | disposition home or self-care (01) | DRG 177 ==
LOC: ERS 18:19 → 2NO 19:59 → OBSVTOIN 07-02 13:39
PROVIDERS: ADMIT Student in an Organized Health Care Education/Training Program; ATTEND Internal Medicine
PROC: 8E0ZXY6 Isolation (ICD-10-PCS; principal; 2023-07-02)
PROC: 5A1D70Z Performance of Urinary Filtration, Intermittent, Less than 6 Hours Per Day (ICD-10-PCS; 2023-07-04)
DX: U07.1 COVID-19 (principal); G93.41 Metabolic encephalopathy; N18.6 End stage renal disease; I12.0 Hypertensive chronic kidney disease with stage 5 chronic kidney disease or end stage renal disease; E87.1 Hypo-osmolality and hyponatremia; R44.3 Hallucinations, unspecified; E11.22 Type 2 diabetes mellitus with diabetic chronic kidney disease; E11.21 Type 2 diabetes mellitus with diabetic nephropathy; E11.40 Type 2 diabetes mellitus with diabetic neuropathy, unspecified; E87.5 Hyperkalemia; E11.65 Type 2 diabetes mellitus with hyperglycemia; D63.1 Anemia in chronic kidney disease; K52.9 Noninfective gastroenteritis and colitis, unspecified; K59.00 Constipation, unspecified; Z88.8 Allergy status to other drugs, medicaments and biological substances; Z79.899 Other long term (current) drug therapy; Z85.038 Personal history of other malignant neoplasm of large intestine; Z90.49 Acquired absence of other specified parts of digestive tract; Z90.710 Acquired absence of both cervix and uterus; Z98.890 Other specified postprocedural states
CPT/HCPCS: 36415; 36416; 71045; 80048; 80053; 83605; 83690; 83735; 84484; 85025; 86140; 86704; 90935; 93005; 96360; 96361; G0257; J1815; J2405; Q0162

== ENCOUNTER 2024-04-02 23:34 | Inpatient (IN) | payer MEDICARE ==
[~2024-04-02 23:34] MED LIST changes: +Heparin 10,000 UNITS/ 10 ML VIAL ONE; -Iopamidol-370 76% 500 ML 1 ML ONE
[2024-04-03] MEDS ORDERED: Labetalol HCl 100 MG/20 ML VIAL ONE (01:53)
[2024-04-03 02:22] LABS: #Basophils 0.04 10x3/uL (0.0-0.2); %Basophils 0.7 % (0.0-1.0); %Eosinophils 2.2 % (0.0-10.0); %Lymphocytes 21.2 % (21.0-51.0); %Neutrophils 67.6 % (42.0-75.0); Hematocrit 33.7 % (36.0-47.0); Hemoglobin 10.7 g/dL (12.0-16.0); Mean Corpuscular HGB CONC 31.8 g/dL (32.0-36.0); Mean Corpuscular Hemoglobin 28.6 pg (27.0-31.0); Mean Corpuscular Volume 90.1 fL (78.0-98.0); Mean Platelet Volume 10.3 fL (7.4-10.4); Platelet Count 166 10x3/uL (130-400); Red Blood Cell (RBC) Count 3.74 mill/uL (4.20-5.40)
[2024-04-03 02:23] LABS: INR-International Normal Ratio 1.1; PTT 30.5 sec (22.9-36.1); Prothrombin Time 14.4 sec (12.0-14.7)
[2024-04-03 02:28] LABS: ALT (SGPT) 8 U/L (8-55); AST (SGOT) 14 U/L (5-34); Albumin 3.4 g/dL (3.4-4.8); Alkaline Phosphatase 90 U/L (40-110); Anion Gap 19 mmol/L (10-20); BUN (Urea Nitrogen) 58 mg/dL (9.8-20.1); Bilirubin, Total 0.6 mg/dL (0.2-1.2); Calc. Creatinine Clearance 0 mL/min (70-130); Carbon Dioxide 29 mmol/L (23-31); Chloride 94 mmol/L (98-107); Estimated GFR 7; Globulin 3.5 g/dL (2.4-3.5); Glucose 143 mg/dL (80-115); Potassium 5.9 mmol/L (3.5-5.1); Protein, Total 6.9 g/dL (5.8-8.1); Sodium 136 mmol/L (136-145)
[2024-04-03 02:30] LABS: Troponin I 0.041 ng/mL (< 0.028)
[2024-04-03] MEDS ORDERED: Ondansetron PF 4 MG/2 ML Vial ONE (02:59)
[2024-04-03] MEDS ORDERED: hydrALAZINE 20 MG/ML VIAL ONE (03:18)
[2024-04-03] MEDS ORDERED: Acetaminophen 325 MG TAB PO PRN (05:00)
[2024-04-03] MEDS ORDERED: Ondansetron PF 4 MG/2 ML Vial IVP PRN (05:00)
[2024-04-03] MEDS ORDERED: Ondansetron ODT 4 MG TAB SL PRN (05:00)
[2024-04-03 07:56] LABS: Bilirubin Negative (Negative); Blood, Urine 2+ (Negative); CAUTI Indications for Culture Alt mental st,lethar; Clarity Turbid (Clear); Glucose, Urine (Dipstick) Normal (Negative); Ketone, Urine Negative (Negative); Leukocyte 500 Leu/uL (Negative); Nitrite Negative (Negative); Protein, Urine (Dipstick) 200 mg/dL (Neg-Trace); RBC/HPF Greater than 50 HPF (0-3); Specific Gravity, Urine 1.013 (1.002-1.036); Squamous Epithelial 0-3 HPF (0-3); Urobilinogen Normal mg/dL (Less than 2)
[2024-04-03 08:07] VITALS: BMI 35.4
[2024-04-03 08:13] LABS: Bacteria/HPF 2+ HPF (None Seen)
[2024-04-03 08:14] LABS: Urine Culture Reflex No No
[2024-04-03 08:15] LABS: HBSAB Concentration Less than 8.00 mIU/mL; HBsAg Index 0.21 S/CO (0-0.99); Hep B Core Total Ab NONREACTIVE (NonReactive); Hep B Core Total Index 0.15 S/CO (0-0.79); Hep B Surf AB NONREACTIVE (NonReactive); Hep B Surf Ag NONREACTIVE S/CO (NonReactive); Hep C IgG Ab NONREACTIVE S/CO (NonReactive); Hep C Index 0.09 S/CO (0-0.79)
[2024-04-03] MEDS ORDERED: LORazepam 2 MG/ML SYR.(CARPUJECT) IVP SCH (09:30)
[2024-04-03] MEDS ORDERED: Lorazepam 2 MG/ML VIAL SLOW IVP PRN (09:39)
[2024-04-03] MEDS ORDERED: Dextrose 5% in Water 1,000 ML IV PRN (10:15)
[2024-04-03] MEDS ORDERED: Glucagon 1 MG/ML KIT IM PRN (10:15)
[2024-04-03] MEDS ORDERED: Dextrose 50% Abboject 50 ML SYRINGE SLOW IVP PRN ×2 (10:15→20:35)
[2024-04-03 10:47] LABS: Magnesium 2.8 mg/dL (1.6-2.6)
[2024-04-03] MEDS ORDERED: Iopamidol 370 76% 100 ML VIAL ONE (11:12)
[2024-04-03] MEDS: Aspirin 300 MG Suppository PR SCH (11:13)
[2024-04-03] MEDS: Labetalol HCl 100 MG/20 ML VIAL SLOW IVP SCH (11:15)
[2024-04-03] MEDS: Lorazepam 2 MG/ML VIAL SLOW IVP SCH (11:16)
[2024-04-03] MEDS: Vancomycin HCl 125 MG Capsule PO SCH (11:17)
[2024-04-03] MEDS: cefTRIAXone\\ROCEPHIN 1 GM in Sodium Chloride 0.9% 100 ML IVPB SCH (11:17)
[2024-04-03 13:18] LABS: Troponin I 0.053 ng/mL (< 0.028)
[2024-04-03] MEDS: Labetalol HCl 100 MG/20 ML VIAL SLOW IVP PRN (19:15)
[2024-04-03] MEDS: hydrALAZINE 20 MG/ML VIAL SLOW IVP PRN (20:02)
[2024-04-03 20:10] LABS: Troponin I 0.082 ng/mL (< 0.028)
[2024-04-03 20:33] LABS: Anion Gap 20 mmol/L (10-20); BUN (Urea Nitrogen) 64 mg/dL (9.8-20.1); Calc. Creatinine Clearance 11 mL/min (70-130); Calcium 9.6 mg/dL (7.8-10.44); Carbon Dioxide 27 mmol/L (23-31); Chloride 96 mmol/L (98-107); Estimated GFR 6; Glucose 126 mg/dL (80-115); Potassium 6.6 mmol/L (3.5-5.1); Sodium 136 mmol/L (136-145)
[2024-04-03] MEDS: Sodium Bicarb 50 MEQ/50 ML Abboject 8.4% SYRINGE ONE (20:40)
[2024-04-03] MEDS: Insulin Regular, Human 100 UNIT/ML 10 ML VIAL ONE (20:40)
[2024-04-03] MEDS: hydrALAZINE 20 MG/ML VIAL ONE (20:41)
[2024-04-03] MEDS: Insulin Regular 300 UNITS/3 ML VIAL IVP SCH (21:19)
[2024-04-03] MEDS: Sodium Bicarb 50 mEq/50 ML VIAL IVP SCH (21:19)
[2024-04-03] MEDS: Heparin 5,000 UNITS/ML VIAL SC SCH (21:24)
[2024-04-03] MEDS: Ondansetron PF 4 MG/2 ML Vial IVP PRN (21:48)
[2024-04-04] MEDS: Ondansetron PF 4 MG/2 ML Vial ONE (01:57)
[2024-04-04] MEDS: Labetalol HCl 100 MG/20 ML VIAL SLOW IVP PRN (05:19)
[2024-04-04 06:46] LABS: #Basophils 0.03 10x3/uL (0.0-0.2); %Basophils 0.5 % (0.0-1.0); %Eosinophils 2.1 % (0.0-10.0); %Lymphocytes 17.6 % (21.0-51.0); %Monocytes 7.4 % (0.0-10.0); %Neutrophils 71.9 % (42.0-75.0); Hematocrit 33.6 % (36.0-47.0); Hemoglobin 10.5 g/dL (12.0-16.0); Mean Corpuscular HGB CONC 31.3 g/dL (32.0-36.0); Mean Corpuscular Hemoglobin 28.7 pg (27.0-31.0); Mean Corpuscular Volume 91.8 fL (78.0-98.0); Mean Platelet Volume 10.6 fL (7.4-10.4); Platelet Count 157 10x3/uL (130-400); RBC Distribution Width 15.5 % (11.5-14.5); Red Blood Cell (RBC) Count 3.66 mill/uL (4.20-5.40)
[2024-04-04 07:01] LABS: Hemoglobin A1c 6.2 % (4.0-6.0)
[2024-04-04 07:07] LABS: Anion Gap 22 mmol/L (10-20); BUN (Urea Nitrogen) 33 mg/dL (9.8-20.1); Calc. Creatinine Clearance 13 mL/min (70-130); Calcium 9.7 mg/dL (7.8-10.44); Carbon Dioxide 25 mmol/L (23-31); Cardiac Risk 2.7 (Less than 4.5); Chloride 96 mmol/L (98-107); Cholesterol 147 mg/dl (< 200 Desired); Estimated GFR 10; Glucose 155 mg/dL (80-115); HDL Cholesterol 55 mg/dL (>60 Neg Risk); LDL Cholesterol, Calculated 81 mg/dL; Magnesium 2.5 mg/dL (1.6-2.6); Potassium 4.5 mmol/L (3.5-5.1); Sodium 138 mmol/L (136-145); Triglycerides 53 mg/dL (Less than 150)
[2024-04-04] MEDS: Aspirin 300 MG Suppository PR SCH (07:57)
[2024-04-04] MEDS: Pantoprazole DR 40 MG TAB PO SCH (07:57)
[2024-04-04] MEDS: Famotidine 20 MG TAB PO SCH (07:57)
[2024-04-04] MEDS ORDERED: Pantoprazole 40 MG VIAL IVP SCH (09:00)
[2024-04-04] MEDS: NIFEdipine XL 60 MG ER.TAB PO SCH (09:39)
[2024-04-04] MEDS: Carvedilol 6.25 MG TAB PO SCH ×2 (12:53→17:58)
[2024-04-04] MEDS: Ondansetron ODT 4 MG TAB PO PRN (18:13)
[2024-04-04] MEDS: HumaLOG 300 UNITS/3 ML VIAL SC PRN (21:54)
[2024-04-05] MEDS: HumaLOG 300 UNITS/3 ML VIAL SC PRN (05:20)
[2024-04-05 06:12] LABS: #Basophils 0.03 10x3/uL (0.0-0.2); %Basophils 0.5 % (0.0-1.0); %Eosinophils 0.9 % (0.0-10.0); %Lymphocytes 29.6 % (21.0-51.0); %Monocytes 8.1 % (0.0-10.0); %Neutrophils 60.6 % (42.0-75.0); Hematocrit 38.4 % (36.0-47.0); Hemoglobin 11.6 g/dL (12.0-16.0); Mean Corpuscular HGB CONC 30.2 g/dL (32.0-36.0); Mean Corpuscular Hemoglobin 28.8 pg (27.0-31.0); Mean Corpuscular Volume 95.3 fL (78.0-98.0); Mean Platelet Volume 10.9 fL (7.4-10.4); Platelet Count 163 10x3/uL (130-400); RBC Distribution Width 15.4 % (11.5-14.5); Red Blood Cell (RBC) Count 4.03 mill/uL (4.20-5.40)
[2024-04-05 07:08] LABS: Anion Gap 21 mmol/L (10-20); BUN (Urea Nitrogen) 25 mg/dL (9.8-20.1); Calc. Creatinine Clearance 14 mL/min (70-130); Calcium 9.9 mg/dL (7.8-10.44); Carbon Dioxide 24 mmol/L (23-31); Chloride 97 mmol/L (98-107); Estimated GFR 11; Glucose 211 mg/dL (80-115); Potassium 4.5 mmol/L (3.5-5.1); Sodium 137 mmol/L (136-145)
[2024-04-05] MEDS: Carvedilol 6.25 MG TAB PO SCH (09:43)
[2024-04-05] MEDS: Carvedilol 25 MG TAB PO SCH (19:37)
[2024-04-05] MEDS: Floranex 1 GM Packet PO SCH (19:37)
[2024-04-05] MEDS: Lorazepam 2 MG/ML VIAL SLOW IVP SCH (19:38)
[2024-04-05] MEDS: Losartan 25 MG TAB PO SCH (19:38)
[2024-04-06] MEDS ORDERED: Lorazepam 2 MG/ML VIAL SLOW IVP SCH (03:15)
[2024-04-06 04:14] LABS: #Basophils Less than 0.03 10x3/uL (0.0-0.2); %Basophils 0.2 % (0.0-1.0); %Eosinophils 1.9 % (0.0-10.0); %Lymphocytes 19.2 % (21.0-51.0); %Monocytes 9.1 % (0.0-10.0); Hematocrit 29.7 % (36.0-47.0); Hemoglobin 9.6 g/dL (12.0-16.0); Mean Corpuscular HGB CONC 32.3 g/dL (32.0-36.0); Mean Corpuscular Hemoglobin 28.9 pg (27.0-31.0); Mean Corpuscular Volume 89.5 fL (78.0-98.0); Mean Platelet Volume 10.5 fL (7.4-10.4); Platelet Count 158 10x3/uL (130-400); RBC Distribution Width 14.9 % (11.5-14.5); Red Blood Cell (RBC) Count 3.32 mill/uL (4.20-5.40)
[2024-04-06 04:32] LABS: Anion Gap 18 mmol/L (10-20); BUN (Urea Nitrogen) 50 mg/dL (9.8-20.1); Calc. Creatinine Clearance 11 mL/min (70-130); Calcium 9.3 mg/dL (7.8-10.44); Carbon Dioxide 27 mmol/L (23-31); Chloride 97 mmol/L (98-107); Estimated GFR 8; Glucose 76 mg/dL (80-115); Sodium 137 mmol/L (136-145)
[2024-04-06] MEDS ORDERED: Losartan 25 MG TAB PO SCH (10:13)
[2024-04-06] MEDS: Floranex 1 GM Packet PO SCH (15:08)
[2024-04-06] MEDS: Losartan 25 MG TAB PO SCH ×2 (15:17→16:16)
[2024-04-07] MEDS: Losartan 25 MG TAB PO SCH (09:58)
[2024-04-07 11:56] LABS: Anion Gap 14 mmol/L (10-20); BUN (Urea Nitrogen) 27 mg/dL (9.8-20.1); Calc. Creatinine Clearance 16 mL/min (70-130); Calcium 9.5 mg/dL (7.8-10.44); Carbon Dioxide 29 mmol/L (23-31); Chloride 98 mmol/L (98-107); Estimated GFR 12; Glucose 231 mg/dL (80-115); Potassium 4.5 mmol/L (3.5-5.1); Sodium 136 mmol/L (136-145)
[2024-04-07 11:58] LABS: #Basophils 0.03 10x3/uL (0.0-0.2); %Basophils 0.6 % (0.0-1.0); %Eosinophils 5.1 % (0.0-10.0); %Lymphocytes 34.3 % (21.0-51.0); %Monocytes 9.6 % (0.0-10.0); Hematocrit 31.4 % (36.0-47.0); Hemoglobin 9.7 g/dL (12.0-16.0); Mean Corpuscular HGB CONC 30.9 g/dL (32.0-36.0); Mean Corpuscular Volume 93.7 fL (78.0-98.0); Mean Platelet Volume 10.8 fL (7.4-10.4); Platelet Count 134 10x3/uL (130-400); RBC Distribution Width 15.2 % (11.5-14.5); Red Blood Cell (RBC) Count 3.35 mill/uL (4.20-5.40)
[2024-04-07 16:11] VITALS: BP 135/64; TEMP 98.7
== END 2024-04-07 19:01 | disposition home or self-care (01) | DRG 77 ==
LOC: ERS 23:34 → ERHOLD 04-03 04:27 → IMCU/EMU 04-03 09:38 → 2NO 04-05 22:52
PROVIDERS: ADMIT Internal Medicine; ATTEND Hospitalist
PROC: 5A1D70Z Performance of Urinary Filtration, Intermittent, Less than 6 Hours Per Day (ICD-10-PCS; principal; 2024-04-03)
PROC: 3E03329 Introduction of Other Anti-infective into Peripheral Vein, Percutaneous Approach (ICD-10-PCS; 2024-04-03)
DX: I67.4 Hypertensive encephalopathy (principal); G93.41 Metabolic encephalopathy; I50.31 Acute diastolic (congestive) heart failure; N18.6 End stage renal disease; I13.2 Hypertensive heart and chronic kidney disease with heart failure and with stage 5 chronic kidney disease, or end stage renal disease; I69.351 Hemiplegia and hemiparesis following cerebral infarction affecting right dominant side; N39.0 Urinary tract infection, site not specified; A04.72 Enterocolitis due to Clostridium difficile, not specified as recurrent; E11.22 Type 2 diabetes mellitus with diabetic chronic kidney disease; E11.319 Type 2 diabetes mellitus with unspecified diabetic retinopathy without macular edema; E78.5 Hyperlipidemia, unspecified; K21.9 Gastro-esophageal reflux disease without esophagitis; Z66 Do not resuscitate; F32.A Depression, unspecified; F41.9 Anxiety disorder, unspecified; H54.8 Legal blindness, as defined in USA; D63.1 Anemia in chronic kidney disease; E03.9 Hypothyroidism, unspecified; I16.0 Hypertensive urgency; E66.9 Obesity, unspecified; E87.5 Hyperkalemia; Z90.49 Acquired absence of other specified parts of digestive tract; Z79.899 Other long term (current) drug therapy; Z99.2 Dependence on renal dialysis; Z88.8 Allergy status to other drugs, medicaments and biological substances; Z88.5 Allergy status to narcotic agent; Z85.038 Personal history of other malignant neoplasm of large intestine; Z68.28 Body mass index [BMI] 28.0-28.9, adult; Z87.891 Personal history of nicotine dependence
CPT/HCPCS: 0042T; 36415; 36416; 70450; 70496; 70498; 70551; 71045; 80048; 80053; 80061; 81001; 83036; 83735; 84146; 84484; 85025; 85610; 85730; 86704; 86706; 86803; 87040; 87086; 87340; 93005; 93010; 93306; 95700; 95711; 95819; J0360; J0696; J1644; J1815; J2060; J2405; J3490; Q0162; Q9967

== ENCOUNTER 2024-04-17 17:16 | Inpatient (IN) | payer MEDICARE ==
[2024-04-17] MEDS ORDERED: traMADol HCl 50 MG TAB ONE (17:58)
[2024-04-17] MEDS ORDERED: Acetaminophen 500 MG TAB ONE (21:48)
[2024-04-17] MEDS ORDERED: hydrALAZINE 20 MG/ML VIAL ONE (23:09)
[2024-04-18] MEDS ORDERED: Dextrose 5% in Water 1,000 ML IV PRN (00:01)
[2024-04-18] MEDS ORDERED: Glucagon 1 MG/ML KIT IM PRN (00:01)
[2024-04-18] MEDS ORDERED: Dextrose 50% Abboject 50 ML SYRINGE SLOW IVP PRN (00:01)
[2024-04-18] MEDS ORDERED: Morphine 2 MG/ML VIAL SLOW IVP PRN (00:08)
[2024-04-18 01:04] LABS: #Basophils Less than 0.03 10x3/uL (0.0-0.2); %Basophils 0.2 % (0.0-1.0); %Eosinophils 1.7 % (0.0-10.0); %Lymphocytes 13.8 % (21.0-51.0); %Monocytes 9.2 % (0.0-10.0); %Neutrophils 74.5 % (42.0-75.0); Hematocrit 28.3 % (36.0-47.0); Hemoglobin 8.8 g/dL (12.0-16.0); Mean Corpuscular HGB CONC 31.1 g/dL (32.0-36.0); Mean Corpuscular Hemoglobin 28.2 pg (27.0-31.0); Mean Corpuscular Volume 90.7 fL (78.0-98.0); Mean Platelet Volume 12.2 fL (7.4-10.4); Platelet Count 114 10x3/uL (130-400); RBC Distribution Width 14.8 % (11.5-14.5); Red Blood Cell (RBC) Count 3.12 mill/uL (4.20-5.40)
[2024-04-18 01:20] LABS: ALT (SGPT) 8 U/L (8-55); AST (SGOT) 15 U/L (5-34); Albumin 3.1 g/dL (3.4-4.8); Alkaline Phosphatase 67 U/L (40-110); Anion Gap 16 mmol/L (10-20); BUN (Urea Nitrogen) 16 mg/dL (9.8-20.1); Bilirubin, Total 0.3 mg/dL (0.2-1.2); Calc. Creatinine Clearance 0 mL/min (70-130); Calcium 9.2 mg/dL (7.8-10.44); Carbon Dioxide 31 mmol/L (23-31); Chloride 96 mmol/L (98-107); Estimated GFR 13; Globulin 3.3 g/dL (2.4-3.5); Glucose 244 mg/dL (80-115); Potassium 4.1 mmol/L (3.5-5.1); Protein, Total 6.4 g/dL (5.8-8.1); Sodium 139 mmol/L (136-145)
[2024-04-18 02:49] VITALS: BMI 25.0
[2024-04-18] MEDS: traMADol HCl 50 MG TAB PO PRN (06:30)
[2024-04-18] MEDS: Acetaminophen 325 MG TAB PO PRN (06:31)
[2024-04-18] MEDS: Senokot S 8.6-50 MG TAB PO SCH (08:13)
[2024-04-18] MEDS: HumaLOG 300 UNITS/3 ML VIAL SC PRN ×2 (11:22→22:18)
[2024-04-18] MEDS: Morphine 4 MG/ML VIAL SLOW IVP PRN (11:23)
[2024-04-18] MEDS: hydrALAZINE 20 MG/ML VIAL SLOW IVP PRN (11:33)
[2024-04-18] MEDS: Sertraline 100 MG TAB PO SCH (20:29)
[2024-04-18] MEDS: QUEtiapine 25 MG TAB PO SCH (20:29)
[2024-04-18] MEDS: Topiramate 25 MG TAB PO SCH (20:29)
[2024-04-18] MEDS: Melatonin 3 MG TAB PO SCH (20:29)
[2024-04-18] MEDS: Colestipol 1 GM TAB PO SCH (20:30)
[2024-04-18] MEDS: hydrALAZINE 10 MG TAB PO SCH (20:31)
[2024-04-18] MEDS: Ondansetron ODT 4 MG TAB PO SCH (21:24)
[2024-04-19] MEDS: Heparin 5,000 UNITS/ML VIAL SC SCH (08:27)
[2024-04-19 10:46] LABS: #Basophils Less than 0.03 10x3/uL (0.0-0.2); %Basophils 0.2 % (0.0-1.0); %Eosinophils 2.6 % (0.0-10.0); %Lymphocytes 18.5 % (21.0-51.0); %Monocytes 11.9 % (0.0-10.0); %Neutrophils 66.1 % (42.0-75.0); Hematocrit 27.5 % (36.0-47.0); Hemoglobin 8.7 g/dL (12.0-16.0); Mean Corpuscular HGB CONC 31.6 g/dL (32.0-36.0); Mean Corpuscular Hemoglobin 29.5 pg (27.0-31.0); Mean Corpuscular Volume 93.2 fL (78.0-98.0); Mean Platelet Volume 11.7 fL (7.4-10.4); Platelet Count 116 10x3/uL (130-400); RBC Distribution Width 15.5 % (11.5-14.5); Red Blood Cell (RBC) Count 2.95 mill/uL (4.20-5.40)
[2024-04-19 11:03] LABS: Anion Gap 16 mmol/L (10-20); BUN (Urea Nitrogen) 33 mg/dL (9.8-20.1); Calc. Creatinine Clearance 11 mL/min (70-130); Carbon Dioxide 30 mmol/L (23-31); Chloride 93 mmol/L (98-107); Estimated GFR 8; Glucose 187 mg/dL (80-115); Sodium 134 mmol/L (136-145)
[2024-04-19] MEDS: QUEtiapine 25 MG TAB PO SCH (13:03)
[2024-04-19] MEDS: hydrALAZINE 25 MG TAB PO SCH (14:52)
[2024-04-20] MEDS ORDERED: Heparin 10,000 UNITS/ 10 ML VIAL ONE (09:23)
[2024-04-20] MEDS: NIFEdipine XL 30 MG ER.TAB PO SCH (20:11)
[2024-04-21] MEDS: NIFEdipine XL 30 MG ER.TAB PO SCH (09:16)
[2024-04-21] MEDS: Losartan 25 MG TAB PO SCH (09:23)
[2024-04-21 09:33] LABS: Albumin 2.9 g/dL (3.4-4.8); Anion Gap 17 mmol/L (10-20); BUN (Urea Nitrogen) 19 mg/dL (9.8-20.1); Calc. Creatinine Clearance 16 mL/min (70-130); Calcium 9.7 mg/dL (7.8-10.44); Carbon Dioxide 29 mmol/L (23-31); Chloride 93 mmol/L (98-107); Estimated GFR 12; Glucose 151 mg/dL (80-115); Phosphorus 3.5 mg/dL (2.3-4.7); Potassium 4.5 mmol/L (3.5-5.1); Sodium 134 mmol/L (136-145)
[2024-04-22 05:59] LABS: Albumin 2.6 g/dL (3.4-4.8); Anion Gap 16 mmol/L (10-20); BUN (Urea Nitrogen) 29 mg/dL (9.8-20.1); BUN/Creatinine Ratio 6.04; Calc. Creatinine Clearance 13 mL/min (70-130); Calcium 9.7 mg/dL (7.8-10.44); Carbon Dioxide 27 mmol/L (23-31); Chloride 93 mmol/L (98-107); Estimated GFR 9; Glucose 145 mg/dL (80-115); Sodium 131 mmol/L (136-145)
[2024-04-22] MEDS: hydrALAZINE 25 MG TAB PO SCH ×2 (09:48→14:41)
[2024-04-22] MEDS: NIFEdipine XL 30 MG ER.TAB PO SCH (09:48)
[2024-04-23 06:16] LABS: Albumin 2.7 g/dL (3.4-4.8); Anion Gap 19 mmol/L (10-20); BUN (Urea Nitrogen) 44 mg/dL (9.8-20.1); Calc. Creatinine Clearance 11 mL/min (70-130); Calcium 9.9 mg/dL (7.8-10.44); Carbon Dioxide 25 mmol/L (23-31); Chloride 90 mmol/L (98-107); Estimated GFR 8; Glucose 125 mg/dL (80-115); Phosphorus 4.2 mg/dL (2.3-4.7); Potassium 5.6 mmol/L (3.5-5.1); Sodium 128 mmol/L (136-145)
[2024-04-23] MEDS: NIFEdipine XL 60 MG ER.TAB PO SCH (08:22)
[2024-04-23] MEDS: Losartan 25 MG TAB PO SCH (13:17)
[2024-04-23] MEDS: hydrALAZINE 20 MG/ML VIAL IM SCH (13:17)
[2024-04-23] MEDS: traMADol HCl 50 MG TAB PO PRN (14:29)
[2024-04-23] MEDS: hydrALAZINE 25 MG TAB PO SCH (14:29)
[2024-04-23 21:26] LABS: Platelet Count 148 10x3/uL (130-400)
[2024-04-24] MEDS: Losartan 25 MG TAB PO SCH (05:24)
[2024-04-24 05:39] LABS: Albumin 2.7 g/dL (3.4-4.8); Anion Gap 18 mmol/L (10-20); BUN (Urea Nitrogen) 22 mg/dL (9.8-20.1); BUN/Creatinine Ratio 5.88; Calc. Creatinine Clearance 16 mL/min (70-130); Calcium 9.6 mg/dL (7.8-10.44); Carbon Dioxide 23 mmol/L (23-31); Chloride 97 mmol/L (98-107); Estimated GFR 13; Glucose 135 mg/dL (80-115); Phosphorus 3.6 mg/dL (2.3-4.7); Potassium 4.8 mmol/L (3.5-5.1); Sodium 133 mmol/L (136-145)
[2024-04-24] MEDS: Polyethylene Glycol 3350 17 GM Packet PO SCH (08:06)
[2024-04-24] MEDS: Ondansetron ODT 4 MG TAB PO PRN (11:40)
[2024-04-24 16:07] VITALS: TEMP 98.1
[2024-04-24 19:58] VITALS: BP 160/67
== END 2024-04-24 20:03 | DRG 533 ==
LOC: ERS 17:16 → SURG A 23:47 → UNDOADMIN 23:47 → SURG A 04-18 00:01
PROVIDERS: ADMIT Surgery; ATTEND Surgery
DX: S72.401A Unspecified fracture of lower end of right femur, initial encounter for closed fracture (principal); N18.6 End stage renal disease; I13.2 Hypertensive heart and chronic kidney disease with heart failure and with stage 5 chronic kidney disease, or end stage renal disease; W05.0XXA Fall from non-moving wheelchair, initial encounter; E78.5 Hyperlipidemia, unspecified; E11.319 Type 2 diabetes mellitus with unspecified diabetic retinopathy without macular edema; E11.40 Type 2 diabetes mellitus with diabetic neuropathy, unspecified; I50.9 Heart failure, unspecified; K21.9 Gastro-esophageal reflux disease without esophagitis; F41.9 Anxiety disorder, unspecified; F32.A Depression, unspecified; M85.80 Other specified disorders of bone density and structure, unspecified site; E11.22 Type 2 diabetes mellitus with diabetic chronic kidney disease; F39 Unspecified mood [affective] disorder; M25.462 Effusion, left knee; M25.461 Effusion, right knee; E03.9 Hypothyroidism, unspecified; D63.1 Anemia in chronic kidney disease; Z87.891 Personal history of nicotine dependence; Z88.6 Allergy status to analgesic agent; Z99.3 Dependence on wheelchair; Z99.2 Dependence on renal dialysis; Z85.038 Personal history of other malignant neoplasm of large intestine; Z86.73 Personal history of transient ischemic attack (TIA), and cerebral infarction without residual deficits; Z90.49 Acquired absence of other specified parts of digestive tract; Z90.710 Acquired absence of both cervix and uterus; Z90.3 Acquired absence of stomach [part of]; Z79.4 Long term (current) use of insulin
CPT/HCPCS: 36415; 36416; 80048; 80053; 80069; 85025; 85049; 93005; 96374; G0390; J0360; J1644; J1815; J2270; Q0162

== ENCOUNTER 2024-10-15 16:43 | Emergency (ER) | payer MEDICARE ==
[2024-10-15] MEDS ORDERED: Nitroglycerin 2% Ointment 1 INCH/1 GM Packet ONE (18:14)
[2024-10-15] MEDS ORDERED: hydrALAZINE 20 MG/ML VIAL ONE (18:14)
[2024-10-15 18:34] LABS: #Basophils Less than 0.03 10x3/uL (0.0-0.2); %Basophils 0.2 % (0.0-1.0); %Eosinophils 3.5 % (0.0-10.0); %Lymphocytes 24.2 % (21.0-51.0); %Neutrophils 63.7 % (42.0-75.0); Hematocrit 33.5 % (36.0-47.0); Hemoglobin 10.6 g/dL (12.0-16.0); Mean Corpuscular HGB CONC 31.6 g/dL (32.0-36.0); Mean Corpuscular Hemoglobin 27.7 pg (27.0-31.0); Mean Corpuscular Volume 87.7 fL (78.0-98.0); Mean Platelet Volume 10.4 fL (7.4-10.4); Platelet Count 165 10x3/uL (130-400); RBC Distribution Width 14.8 % (11.5-14.5); Red Blood Cell (RBC) Count 3.82 mill/uL (4.20-5.40)
[2024-10-15 19:10] LABS: ALT (SGPT) 7 U/L (8-55); AST (SGOT) 17 U/L (5-34); Albumin 3.2 g/dL (3.4-4.8); Alkaline Phosphatase 60 U/L (40-110); Anion Gap 14 mmol/L (10-20); BUN (Urea Nitrogen) 16 mg/dL (9.8-20.1); Bilirubin, Total 0.3 mg/dL (0.2-1.2); Calc. Creatinine Clearance 0 mL/min (70-130); Calcium 9.7 mg/dL (7.8-10.44); Carbon Dioxide 33 mmol/L (23-31); Chloride 93 mmol/L (98-107); Estimated GFR 27; Globulin 3.9 g/dL (2.4-3.5); Glucose 169 mg/dL (80-115); Potassium 3.8 mmol/L (3.5-5.1); Protein, Total 7.1 g/dL (5.8-8.1); Sodium 136 mmol/L (136-145)
== END 2024-10-16 05:20 | disposition home or self-care (01) ==
LOC: ERS 16:43
DX: T82.838A Hemorrhage due to vascular prosthetic devices, implants and grafts, initial encounter (principal); E11.9 Type 2 diabetes mellitus without complications; I10 Essential (primary) hypertension; Z87.891 Personal history of nicotine dependence
CPT/HCPCS: 80053; 82962; 85025; 96374; 99285; J0360; 36416